=== PATIENT | female | born 1970 | race Caucasian/White ===

== ENCOUNTER 2017-11-21 12:27 | Day surgery (SDC) | payer OTHER, SELFPAY ==
[2017-11-21 13:17] VITALS: BP 101/73; BP 112/78; PULSE 73; PULSE 80; RESP 20; TEMP 36.4; O2SAT 93
--- NOTE | 2017-11-21 13:31 | HMH.PMPROC ---
- Procedure Date: 11/21/17 Time: 13:31 Anesthesiologist:: Abdoul Elise MD Complications:: None Pre-procedure Diagnosis:: Myofascial pain syndrome Post-procedure Diagnosis:: Same Indications for Procedure:: This is a pleasant 47-year-old white female who treating in pain clinic for chronic pain syndrome, myofascial pain syndrome, fibromyalgia, multiple joint pain. She has extreme point tenderness of bilateral trapezius. She has tried and failed multiple medications for chronic fibromyalgia symptoms. She has trigger points identified throughout bilateral upper trapezius muscles. We will do trigger point injections today. Procedure Details:: Trigger point injections x 8 to bilateral upper trapezius muscles Informed consent was obtained and the risk and benefits of the procedure was explained to the patient. Patient was taken to the procedure room. Neck and both shoulders were prepped using ChloraPrep. Triggerpoints were palpated. Each of these trigger points were injected with bupivacaine 0.25% 3 mL's and Depo-Medrol 10 mg. A total of 8 trigger points, 4 on each side were injected using a total of 80 mg Depo-Medrol. Patient tolerated the procedure well with no complications. Plan and Disposition:: We will follow-up with this patient in 2 weeks. We will reevaluate her symptoms at that time.
--- NOTE | 2017-11-21 13:35 | P.PCN_ITS ---
- Procedure Date: 11/21/17 Time: 13:31 Anesthesiologist:: bAdoul Elise MD Complications:: None Pre-procedure Diagnosis:: Myofascial pain syndrome Post-procedure Diagnosis:: Same Indications for Procedure:: This is a pleasant 47-year-old white female who treating in pain clinic for chronic pain syndrome, myofascial pain syndrome, fibromyalgia, multiple joint pain. She has extreme point tenderness of bilateral trapezius. She has tried and failed multiple medications for chronic fibromyalgia symptoms. She has trigger points identified throughout bilateral upper trapezius muscles. We will do trigger point injections today. Procedure Details:: Trigger point injections x 8 to bilateral upper trapezius muscles Informed consent was obtained and the risk and benefits of the procedure was explained to the patient. Patient was taken to the procedure room. Neck and both shoulders were prepped using ChloraPrep. Triggerpoints were palpated. Each of these trigger points were injected with bupivacaine 0.25% 3 mL's and Depo-Medrol 10 mg. A total of 8 trigger points, 4 on each side were injected using a total of 80 mg Depo-Medrol. Patient tolerated the procedure well with no complications. Plan and Disposition:: We will follow-up with this patient in 2 weeks. We will reevaluate her symptoms at that time.
[2017-11-21 13:37] VITALS: BP 107/69; PULSE 68; RESP 16; O2SAT 99
== END 2017-11-21 13:39 | disposition home or self-care (01) ==
LOC: SC.PAINP 12:30
PROVIDERS: Family Provider Family Medicine; PCP Family Medicine; Visit Provider Anesthesiology
DX: M79.1 Myalgia (principal)
CPT/HCPCS: 20552; J1030

== ENCOUNTER → 2017-12-03 14:25 | Outpatient (POV) | payer OTHER, SELFPAY ==
[2017-12-03 14:47] VITALS: BMI 23.2
--- NOTE | 2017-12-03 15:20 | HMH.PAINSOAP ---
[facility] Pain Management SOAP Note Subjective:: This patient is a pleasant 47-year-old white female who we are treating for fibromyalgia, neck pain with cervical radicular symptoms. She got bilateral upper trapezius trigger point injections at her last visit. She has some benefit from this. She still has some radicular symptoms down both arms especially from elbows to her hands. She does have some neck pain as well. Her MRI of C-spine does not show any disc herniation or neuroforaminal stenosis however this patient does note significant cervical radicular symptoms and neck pain I do believe she may benefit from cervical epidural steroid injection. Objective:: Alert and oriented ?3 no acute distress. Patient does have good range of motion of the cervical spine increased pain with extension. Motor strength of the upper knees is 5/5. There is no gross sensory deficit. Assessment:: Neck pain with cervical radiculopathy symptoms. Plan:: We will seek approval and plan on cervical epidural steroid injection. She is previously been on Lyrica and gabapentin and was unable to tolerate both these medications because of side effects.
== END ==
PROVIDERS: Family Provider Family Medicine; PCP Family Medicine; Visit Provider Anesthesiology
DX: M54.12 Radiculopathy, cervical region (principal)
CPT/HCPCS: 99212

== ENCOUNTER → 2017-12-19 09:03 | Day surgery (SDC) | payer OTHER, SELFPAY ==
[2017-12-19 09:12] VITALS: BP 152/83; PULSE 59; RESP 16; TEMP 36.4; O2SAT 97; BMI 22.8
[2017-12-19 09:39] VITALS: BP 154/97; PULSE 68; RESP 20; O2SAT 98
--- NOTE | 2017-12-19 09:39 | HMH.PMPROC ---
- Procedure Date: 12/19/17 Time: 09:39 Anesthesiologist:: Abdoul Elise MD Complications:: None Pre-procedure Diagnosis:: Neck pain with cervical radiculopathy symptoms Post-procedure Diagnosis:: Same Indications for Procedure:: This patient is a pleasant 47-year-old white female who we are treating for neck pain with cervical radiculopathy symptoms and fibromyalgia. She has some neck pain with radicular symptoms down both arms especially from her elbows to her hands. She did get some benefit from trigger point injections to her neck pain. However she still has significant radicular pain. We will do a cervical epidural steroid injection today to see if this helps with her radicular symptoms. Procedure Details:: Cervical epidural steroid injection under fluoroscopy Informed consent was obtained and the risks and benefits of the procedure was explained to the patient. The patient was taken to the procedure room placed prone on the procedure table. The neck was prepped using ChloraPrep. The skin and subcutaneous tissues were anesthetized using lidocaine. I placed a 18-gauge epidural needle into the C5-C6 interspace and advanced using [id number] to air and fluoroscopic guidance. After confirmation of needle placement in the epidural space with dye, I injected 3 mL's lidocaine 1.5% and Depo-Medrol 80 mg. The patient tolerated the procedure well with no complications. Plan and Disposition:: We will follow-up with her in 2 weeks. We will reevaluate her symptoms at that time.
[2017-12-19 09:41] VITALS: BP 136/75; PULSE 68; RESP 20; O2SAT 99
--- NOTE | 2017-12-19 09:47 | P.PCN_ITS ---
- Procedure Date: 12/19/17 Time: 09:39 Anesthesiologist:: Abdoul Elise MD Complications:: None Pre-procedure Diagnosis:: Neck pain with cervical radiculopathy symptoms Post-procedure Diagnosis:: Same Indications for Procedure:: This patient is a pleasant 47-year-old white female who we are treating for neck pain with cervical radiculopathy symptoms and fibromyalgia. She has some neck pain with radicular symptoms down both arms especially from her elbows to her hands. She did get some benefit from trigger point injections to her neck pain. However she still has significant radicular pain. We will do a cervical epidural steroid injection today to see if this helps with her radicular symptoms. Procedure Details:: Cervical epidural steroid injection under fluoroscopy Informed consent was obtained and the risks and benefits of the procedure was explained to the patient. The patient was taken to the procedure room placed prone on the procedure table. The neck was prepped using ChloraPrep. The skin and subcutaneous tissues were anesthetized using lidocaine. I placed a 18- gauge epidural needle into the C5-C6 interspace and advanced using loss-of- resistance to air and fluoroscopic guidance. After confirmation of needle placement in the epidural space with dye, I injected 3 mL's lidocaine 1.5% and Depo-Medrol 80 mg. The patient tolerated the procedure well with no complications. Plan and Disposition:: We will follow-up with her in 2 weeks. We will reevaluate her symptoms at that time.
[2017-12-19 09:53] VITALS: BP 156/86; PULSE 63; RESP 18; TEMP 36.4; O2SAT 100
== END ==
PROVIDERS: Family Provider Family Medicine; PCP Family Medicine; Visit Provider Anesthesiology
DX: M54.2 Cervicalgia (principal); M54.12 Radiculopathy, cervical region; M79.7 Fibromyalgia
CPT/HCPCS: 62321; J1040; Q9966

== ENCOUNTER → 2018-01-06 08:49 | Outpatient (POV) | payer OTHER, SELFPAY ==
--- NOTE | 2018-01-06 08:57 | HMH.PAINSOAP ---
[facility] Pain Management SOAP Note Subjective:: Is a pleasant 47-year-old white female who follows up today after cervical epidural steroid injection. Patient states she had 3 days of 100% pain relief after the injection. Patient has also has had trigger point injections in the past with some relief. Today patient would like to discuss another cervical epidural steroid injection. Patient rates her pain a 4 out of 10 today. Patient states that she is having extreme discomfort in both of her arms. She has radiating pain going from her shoulder all the way to all 5 fingertips on both arms. Patient states that this pain is shocking at times. Patient has difficulty with touching her arms. Patient's fingers have discoloration at times and also temperature changes as well. Patient denies any trauma to bilateral arms. Patient does ride her bike 40 miles a day. Due to this bilateral arm pain has worsened in the last 6 months. Has not had an MRI since 2016. Patient is a very active female. She does use Biofreeze that does help alleviate some of the pain however does not increase her ability to function. Patient also tried and failed physical therapy. ROS General: no recent weight change, no fever, no sleep disturbances Respiratory: no cough, no shortness of air, no recurring pulmonary infections Cardiovascular/Peripheral Vascular: No chest pain, No palpitations, no edema, no shortness of breath. Gastrointestinal: no incontinence, normal bowel movements reported Genitourinary: no incontinence Musculoskeletal: Neck pain, myofascial pain, bilateral arm pain Psychiatric: normal mood/ affect Neurological: Weakness in upper extremities at times, [denies balance issues] Objective:: Physical Exam General: Alert and oriented x3, no acute distress, pleasant and cooperative, [on room air] Lungs: Resps E/U, Symmetrical chest expansion, Musculoskeletal: Flexion and extension of cervical spine somewhat guarded secondary to pain, right patellar reflex greater than left, strength in upper and lower extremities [5/5], normal gait noted, trigger points palpated in the bilateral trapezius and cervical paraspinous. Tenderness noted over cervical spine. Neurological: speech clear, diving board assembler equal, no gross sensory deficits Assessment:: Cervical neck pain with cervical radiculopathy symptoms. Myofascial pain syndrome, rheumatoid arthritis Plan:: We will plan on another cervical epidural steroid injection at C5-C6. We will also ask for an MRI of her cervical spine. I believe that this would be advantageous due to the fact that she has had worsening of symptoms in the last 6 months and is some new radicular symptoms in her arms. I will also: Zanaflex 4 mg 1 p.o. 3 times daily for her to begin taking. I educated her on the risks of the medication and discussed her need to stop taking her Flexeril. She has also been on long-term anti-inflammatory therapy with little relief. This note was dictated using voice recognition software may contain errors or omissions
[2018-01-06 09:00] VITALS: BP 153/80; PULSE 62; RESP 18; O2SAT 100; BMI 23.0
--- NOTE | 2018-01-06 09:08 | P.CONS_ITS ---
[facility] Pain Management SOAP Note Subjective:: Is a pleasant 47-year-old white female who follows up today after cervical epidural steroid injection. Patient states she had 3 days of 100% pain relief after the injection. Patient has also has had trigger point injections in the past with some relief. Today patient would like to discuss another cervical epidural steroid injection. Patient rates her pain a 4 out of 10 today. Patient states that she is having extreme discomfort in both of her arms. She has radiating pain going from her shoulder all the way to all 5 fingertips on both arms. Patient states that this pain is shocking at times. Patient has difficulty with touching her arms. Patient's fingers have discoloration at times and also temperature changes as well. Patient denies any trauma to bilateral arms. Patient does ride her bike 40 miles a day. Due to this bilateral arm pain has worsened in the last 6 months. Has not had an MRI since 2016. Patient is a very active female. She does use Biofreeze that does help alleviate some of the pain however does not increase her ability to function. Patient also tried and failed physical therapy. ROS General: no recent weight change, no fever, no sleep disturbances Respiratory: no cough, no shortness of air, no recurring pulmonary infections Cardiovascular/Peripheral Vascular: No chest pain, No palpitations, no edema, no shortness of breath. Gastrointestinal: no incontinence, normal bowel movements reported Genitourinary: no incontinence Musculoskeletal: Neck pain, myofascial pain, bilateral arm pain Psychiatric: normal mood/ affect Neurological: Weakness in upper extremities at times, [denies balance issues] Objective:: Physical Exam General: Alert and oriented x3, no acute distress, pleasant and cooperative, [ on room air] Lungs: Resps E/U, Symmetrical chest expansion, Musculoskeletal: Flexion and extension of cervical spine somewhat guarded secondary to pain, right patellar reflex greater than left, strength in upper and lower extremities [5/5], normal gait noted, trigger points palpated in the bilateral trapezius and cervical paraspinous. Tenderness noted over cervical spine. Neurological: speech clear, manager etl equal, no gross sensory deficits Assessment:: Cervical neck pain with cervical radiculopathy symptoms. Myofascial pain syndrome, rheumatoid arthritis Plan:: We will plan on another cervical epidural steroid injection at C5-C6. We will also ask for an MRI of her cervical spine. I believe that this would be advantageous due to the fact that she has had worsening of symptoms in the last 6 months and is some new radicular symptoms in her arms. I will also: Zanaflex 4 mg 1 p.o. 3 times daily for her to begin taking. I educated her on the risks of the medication and discussed her need to stop taking her Flexeril. She has also been on long-term anti-inflammatory therapy with little relief. This note was dictated using voice recognition software may contain errors or omissions
--- NOTE | 2018-01-07 09:30 | PC.PHONENOTE ---
01/06/18-called in Rx for Zanaflex 4mg TID with two refills to pt's pharmacy per provider order
== END ==
PROVIDERS: Family Provider Family Medicine; PCP Family Medicine; Visit Provider Clinical Nurse Specialist Family Health
DX: M54.12 Radiculopathy, cervical region (principal)
CPT/HCPCS: 99212

== ENCOUNTER → 2018-01-08 07:53 | Outpatient (CLI) | payer OTHER, SELFPAY ==
--- NOTE | 2018-01-08 07:56 | MR_ITS ---
MR cervical spine wo con, MR 3-d myelogram/MRCP HISTORY: Worsening back pain with bilateral arm pain and numbness and tingling ORDERING PHYSICIAN: Abdoul Elise MD PATIENT AGE: 47 years COMPARISON: MRI of 07/18/2016 TECHNIQUE: Standard multiplanar multiecho sequences are performed without contrast. 3-D MIP and myelographic images are also rendered and reviewed FINDINGS: There is normal alignment. Unremarkable craniocervical junction. There is straightening of the cervical vessels. This may be the patient positioning or muscle spasm. There is normal alignment. No disc herniation, significant bulge, fracture, or dislocation is evident. There is minimal right paracentral disc protrusion at C6-C7.. No significant foraminal narrowing or impingement is evident. IMPRESSION: 1. Straightening of cervical lordosis which could be due to patient positioning or muscle. 2. Minimal right paracentral and foraminal disc protrusion at C6-C7 without obvious impingement. 3. Otherwise negative MRI of the cervical spine
== END ==
PROVIDERS: Family Provider Family Medicine; PCP Family Medicine; Visit Provider Anesthesiology
DX: M54.2 Cervicalgia (principal)
CPT/HCPCS: 72141; 76376

== ENCOUNTER → 2018-01-09 14:31 | Day surgery (SDC) | payer OTHER, SELFPAY ==
[2018-01-09 14:45] VITALS: BP 112/69; PULSE 60; RESP 15; TEMP 36.5; O2SAT 97; BMI 23.0
[2018-01-09 15:13] VITALS: BP 103/64; PULSE 61; RESP 18; O2SAT 98
[2018-01-09 15:15] VITALS: BP 105/65; PULSE 59; RESP 18
--- NOTE | 2018-01-09 15:17 | HMH.PMPROC ---
- Procedure Date: 01/09/18 Time: 15:17 Anesthesiologist:: Abdoul Elise MD Complications:: None Pre-procedure Diagnosis:: Neck pain with cervical radiculopathy symptoms. Myofascial pain syndrome, rheumatoid arthritis Post-procedure Diagnosis:: Same Indications for Procedure:: This patient is a pleasant 47-year-old white female who we are treating for neck pain with cervical radiculopathy symptoms. She had good relief of her pain symptoms for 3-4 days after her last cervical epidural steroid injection. Her pain is starting to come back. We will do a repeat cervical epidural steroid injection today. Procedure Details:: Cervical epidural steroid injection under fluoroscopy Informed consent was obtained and the risks and benefits of the procedure was explained to the patient. The patient was taken to the procedure room placed prone on the procedure table. The neck was prepped using ChloraPrep. The skin and subcutaneous tissues were anesthetized using lidocaine. I placed a 18-gauge epidural needle into the C5-C6 interspace and advanced using [id number] to air and fluoroscopic guidance. After confirmation of needle placement in the epidural space with dye, I injected 3 mL's lidocaine 1.5% and Depo-Medrol 80 mg. The patient tolerated the procedure well with no complications. Plan and Disposition:: We will follow-up with her in 2 weeks. We will reevaluate her symptoms at that time. We will follow-up on her MRI.
--- NOTE | 2018-01-09 15:20 | P.PCN_ITS ---
- Procedure Date: 01/09/18 Time: 15:17 Anesthesiologist:: Abdoul Elise MD Complications:: None Pre-procedure Diagnosis:: Neck pain with cervical radiculopathy symptoms. Myofascial pain syndrome, rheumatoid arthritis Post-procedure Diagnosis:: Same Indications for Procedure:: This patient is a pleasant 47-year-old white female who we are treating for neck pain with cervical radiculopathy symptoms. She had good relief of her pain symptoms for 3-4 days after her last cervical epidural steroid injection. Her pain is starting to come back. We will do a repeat cervical epidural steroid injection today. Procedure Details:: Cervical epidural steroid injection under fluoroscopy Informed consent was obtained and the risks and benefits of the procedure was explained to the patient. The patient was taken to the procedure room placed prone on the procedure table. The neck was prepped using ChloraPrep. The skin and subcutaneous tissues were anesthetized using lidocaine. I placed a 18- gauge epidural needle into the C5-C6 interspace and advanced using loss-of- resistance to air and fluoroscopic guidance. After confirmation of needle placement in the epidural space with dye, I injected 3 mL's lidocaine 1.5% and Depo-Medrol 80 mg. The patient tolerated the procedure well with no complications. Plan and Disposition:: We will follow-up with her in 2 weeks. We will reevaluate her symptoms at that time. We will follow-up on her MRI.
[2018-01-09 15:22] VITALS: BP 94/61; PULSE 60; RESP 14; TEMP 36.4; O2SAT 98
== END ==
PROVIDERS: Family Provider Family Medicine; PCP Family Medicine; Visit Provider Anesthesiology
DX: M54.2 Cervicalgia (principal); M54.12 Radiculopathy, cervical region
CPT/HCPCS: 62321; J1040; Q9966

== ENCOUNTER → 2018-01-27 08:51 | Outpatient (POV) | payer OTHER, SELFPAY ==
[2018-01-27 08:57] VITALS: BP 116/81; PULSE 61; RESP 16; O2SAT 100; BMI 23.0
--- NOTE | 2018-01-27 09:03 | HMH.PAINSOAP ---
[facility] Pain Management SOAP Note Subjective:: Patient is a pleasant 47-year-old white female who presents today following up after cervical epidural steroid injection. Patient received no relief or benefit from this injection. Patient has tried physical therapy and anti-inflammatory medications with no great relief. Patient still has muscle spasms and tightening of her trapezius. Patient rates her pain a 6 out of 10 today. Patient is able to take Zanaflex throughout the day without as much sedation as her Flexeril. I told her to continue this. Patient has not tried chiropractic therapy I believe that this may be beneficial for her. Patient did have a new MRI. Patient still riding her bike 50 miles a day. ROS General: no recent weight change, no fever, no sleep disturbances Respiratory: no cough, no shortness of air, no recurring pulmonary infections Cardiovascular/Peripheral Vascular: No chest pain, No palpitations, no edema, no shortness of breath. Gastrointestinal: no incontinence, normal bowel movements reported Genitourinary: no incontinence Musculoskeletal: Back pain, myofascial pain Psychiatric: normal mood/ affect Neurological: [denies balance issues] Objective:: Physical Exam General: Alert and oriented x3, no acute distress, pleasant and cooperative, [on room air] Lungs: Resps E/U, Symmetrical chest expansion, Eyes: PERRL Musculoskeletal: Flexion and extension of cervical spine somewhat guarded secondary to pain, deep tendon reflexes normal, strength in upper and lower extremities [5/5], normal gait noted Neurological: speech clear, circuit walker equal, no gross sensory deficits Ordering Physician: Abdoul Elise MD Date of Service: 01/08/18 Procedure(s): MR cervical spine wo con Accession Number(s): [id number] cc: Jacob Jo MD; Amador Townsend MD~ MR cervical spine wo con, MR 3-d myelogram/MRCP HISTORY: Worsening back pain with bilateral arm pain and numbness and tingling ORDERING PHYSICIAN: Abdoul Elise MD PATIENT AGE: 47 years COMPARISON: MRI of 07/18/2016 TECHNIQUE: Standard multiplanar multiecho sequences are performed without contrast. 3-D MIP and myelographic images are also rendered and reviewed FINDINGS: There is normal alignment. Unremarkable craniocervical junction. There is straightening of the cervical vessels. This may be the patient positioning or muscle spasm. There is normal alignment. No disc herniation, significant bulge, fracture, or dislocation is evident. There is minimal right paracentral disc protrusion at C6-C7.. No significant foraminal narrowing or impingement is evident. IMPRESSION: 1. Straightening of cervical lordosis which could be due to patient positioning or muscle. 2. Minimal right paracentral and foraminal disc protrusion at C6-C7 without obvious impingement. 3. Otherwise negative MRI of the cervical spine Dictated By: Jacob Jo MD Signed By: <Electronically signed by Jacob Jo MD in [place]> Assessment:: Myofascial pain syndrome, disc protrusion at C6-C7, degenerative disc disease of the cervical spine Plan:: The patient and I discussed continuing the Zanaflex. I also discussed with the patient getting a chiropractic consultation. I believe that at this point more injections will not be beneficial long-term. Patient does have some new pathology on her MRI. I will follow-up with this patient in 1 month This note was dictated using voice recognition software and may contain errors or omissions
--- NOTE | 2018-01-27 09:06 | P.CONS_ITS ---
[facility] Pain Management SOAP Note Subjective:: Patient is a pleasant 47-year-old white female who presents today following up after cervical epidural steroid injection. Patient received no relief or benefit from this injection. Patient has tried physical therapy and anti- inflammatory medications with no great relief. Patient still has muscle spasms and tightening of her trapezius. Patient rates her pain a 6 out of 10 today. Patient is able to take Zanaflex throughout the day without as much sedation as her Flexeril. I told her to continue this. Patient has not tried chiropractic therapy I believe that this may be beneficial for her. Patient did have a new MRI. Patient still riding her bike 50 miles a day. ROS General: no recent weight change, no fever, no sleep disturbances Respiratory: no cough, no shortness of air, no recurring pulmonary infections Cardiovascular/Peripheral Vascular: No chest pain, No palpitations, no edema, no shortness of breath. Gastrointestinal: no incontinence, normal bowel movements reported Genitourinary: no incontinence Musculoskeletal: Back pain, myofascial pain Psychiatric: normal mood/ affect Neurological: [denies balance issues] Objective:: Physical Exam General: Alert and oriented x3, no acute distress, pleasant and cooperative, [ on room air] Lungs: Resps E/U, Symmetrical chest expansion, Eyes: PERRL Musculoskeletal: Flexion and extension of cervical spine somewhat guarded secondary to pain, deep tendon reflexes normal, strength in upper and lower extremities [5/5], normal gait noted Neurological: speech clear, 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 3-D MIP and myelographic images are also rendered and reviewed FINDINGS: There is normal alignment. Unremarkable craniocervical junction. There is straightening of the cervical vessels. This may be the patient positioning or muscle spasm. There is normal alignment. No disc herniation, significant bulge, fracture, or dislocation is evident. There is minimal right paracentral disc protrusion at C6-C7.. No significant foraminal narrowing or impingement is evident. IMPRESSION: 1. Straightening of cervical lordosis which could be due to patient positioning or muscle. 2. Minimal right paracentral and foraminal disc protrusion at C6-C7 without obvious impingement. 3. Otherwise negative MRI of the cervical spine Dictated By: Jacob Jo MD Signed By: <Electronically signed by Jacob Jo MD in [place]> Assessment:: Myofascial pain syndrome, disc protrusion at C6-C7, degenerative disc disease of the cervical spine Plan:: The patient and I discussed continuing the Zanaflex. I also discussed with the patient getting a chiropractic consultation. I believe that at this point more injections will not be beneficial long-term. Patient does have some new pathology on her MRI. I will follow-up with this patient in 1 month This note was dictated using voice recognition software and may contain errors or omissions
== END ==
PROVIDERS: Family Provider Family Medicine; PCP Family Medicine; Visit Provider Clinical Nurse Specialist Family Health
DX: M50.30 Other cervical disc degeneration, unspecified cervical region (principal); M79.1 Myalgia
CPT/HCPCS: 99212

== ENCOUNTER → 2018-02-13 12:41 | Outpatient (CLI) | payer OTHER, SELFPAY | PROVIDERS: Visit Provider Family Medicine | DX: S81.801A Unspecified open wound, right lower leg, initial encounter (principal) | CPT/HCPCS: 87070; 87205 ==

== ENCOUNTER → 2018-02-24 09:44 | Outpatient (POV) | payer OTHER, SELFPAY ==
[2018-02-24 10:02] VITALS: BP 139/84; PULSE 78; RESP 18; TEMP 36.6; O2SAT 100; BMI 22.8
--- NOTE | 2018-02-24 10:38 | HMH.PAINSOAP ---
[facility] Pain Management SOAP Note Subjective:: She is a pleasant 47-year-old white female who presents to the following up after her prior to therapy for her cervical neck pain. Patient has received no relief or from this. Patient has not had any benefit from her injections. Patient's tried and failed physical therapy and anti-inflammatory medications. Patient is having muscle spasms throughout her bilateral trapezius. Patient is having numbness and tingling all the way to her fingers of both hands. Patient stated it is hard for her to get up and go to work in the morning. Patient is writing her 50 miles a day. Patient does have an MRI with some pathology on it. Patient rates her pain an 8 out of 10 today. She is also having numbness and tingling in her bilateral legs from her knees to her toes. ROS General: no recent weight change, no fever, no sleep disturbances Respiratory: no cough, no shortness of air, no recurring pulmonary infections Cardiovascular/Peripheral Vascular: No chest pain, No palpitations, no edema, no shortness of breath. Gastrointestinal: no incontinence, normal bowel movements reported Genitourinary: no incontinence Musculoskeletal: Neck pain, but hand pain, bilateral leg pain Psychiatric: normal mood/ affect Neurological: [denies weakness in extremities], [denies balance issues] Objective:: Physical Exam General: Alert and oriented x3, no acute distress, pleasant and cooperative, [on room air] Lungs: Resps E/U, Symmetrical chest expansion, Eyes: PERRL Musculoskeletal: Flexion and extension of cervical spine somewhat guarded secondary to pain, deep tendon reflexes normal, strength in upper and lower extremities [5/5], slightly antalgic gait noted Neurological: speech clear, 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 Patient is interested in moving forward with this. I believe that this may be beneficial for her. Patient has tried and failed anti-inflammatories, medications, exercises, stretching, physical therapy and chiropractic therapy. We will schedule a trial for her. We will use the nuVectra system and try to gain relief of both cervical radiculopathy and bilateral leg pain. This note was dictated using voice recognition software and may contain errors or omissions
--- NOTE | 2018-02-24 10:41 | P.CONS_ITS ---
[facility] Pain Management SOAP Note Subjective:: She is a pleasant 47-year-old white female who presents to the following up after her prior to therapy for her cervical neck pain. Patient has received no relief or from this. Patient has not had any benefit from her injections. Patient's tried and failed physical therapy and anti-inflammatory medications. Patient is having muscle spasms throughout her bilateral trapezius. Patient is having numbness and tingling all the way to her fingers of both hands. Patient stated it is hard for her to get up and go to work in the morning. Patient is writing her 50 miles a day. Patient does have an MRI with some pathology on it. Patient rates her pain an 8 out of 10 today. She is also having numbness and tingling in her bilateral legs from her knees to her toes. ROS General: no recent weight change, no fever, no sleep disturbances Respiratory: no cough, no shortness of air, no recurring pulmonary infections Cardiovascular/Peripheral Vascular: No chest pain, No palpitations, no edema, no shortness of breath. Gastrointestinal: no incontinence, normal bowel movements reported Genitourinary: no incontinence Musculoskeletal: Neck pain, but hand pain, bilateral leg pain Psychiatric: normal mood/ affect Neurological: [denies weakness in extremities], [denies balance issues] Objective:: Physical Exam General: Alert and oriented x3, no acute distress, pleasant and cooperative, [ on room air] Lungs: Resps E/U, Symmetrical chest expansion, Eyes: PERRL Musculoskeletal: Flexion and extension of cervical spine somewhat guarded secondary to pain, deep tendon reflexes normal, strength in upper and lower extremities [5/5], slightly antalgic gait noted Neurological: speech clear, observer helper equal, no gross sensory deficits Assessment:: Myofascial pain syndrome, degenerative disc disease of the cervical spine, cervical radiculopathy, bilateral leg pain Plan:: Patient and I have discussed and neurostimulator trial. Patient is interested in moving forward with this. I believe that this may be beneficial for her. Patient has tried and failed anti-inflammatories, medications, exercises, stretching, physical therapy and chiropractic therapy. We will schedule a trial for her. We will use the nuVectra system and try to gain relief of both cervical radiculopathy and bilateral leg pain. This note was dictated using voice recognition software and may contain errors or omissions
== END ==
PROVIDERS: Family Provider Family Medicine; PCP Family Medicine; Visit Provider Clinical Nurse Specialist Family Health
DX: M54.12 Radiculopathy, cervical region (principal); M79.1 Myalgia
CPT/HCPCS: 99212

== ENCOUNTER → 2018-03-10 13:40 | Outpatient (CLI) | payer OTHER, SELFPAY ==
[2018-03-10 14:30] LABS: Basophils % 0.7 % (0.1-2.0); Eosinophils # 0.1 K/mm3 (0.0-0.4); Eosinophils % 3.3 % (0.1-12.0); Hematocrit 34.7 % (37.0-47.0); Lymphocytes # 1.5 K/mm3 (0.7-4.5); Lymphocytes % 35.2 K/mm3 (10-50); Mean Corpuscular HGB Conc 31.5 g/dL (31.8-35.4); Mean Corpuscular Hemoglobin 30.8 pg (27.0-31.2); Mean Corpuscular Volume 97.7 fl (81-99); Monocytes # 0.3 K/mm3 (0.1-1.0); Monocytes % 6.5 % (1.7-9.3); Neutrophils # 2.3 K/mm3 (1.8-7.8); Neutrophils % 54.3 % (37.0-80.0); Platelet Count 286 K/mm3 (142-424); Red Blood Count 3.56 M/mm3 (4.20-5.40); Red Cell Distribution Width 13.2 % (11.5-17.5); White Blood Count 4.2 K/mm3 (4.8-10.8)
[2018-03-10 14:59] LABS: Anion Gap 14.4 mEq/L (5-15); Blood Urea Nitrogen 13 mg/dL (7-18); Carbon Dioxide 28 mmol/L (21.0-32.0); Chloride 102 mmol/L (98-107); Creatinine,Serum 0.83 mg/dL (0.55-1.02); Estimated Glomerular Filt Rate 73 ml/min (>60); GFR (African American) 89 ML/MIN (>60); Glucose 79 mg/dL (74-106); Potassium 4.4 mmoL/L (3.5-5.1); Sodium 140 mmol/L (136-145)
== END ==
PROVIDERS: Visit Provider Anesthesiology
DX: Z01.818 Encounter for other preprocedural examination (principal); M50.10 Cervical disc disorder with radiculopathy, unspecified cervical region
CPT/HCPCS: 36415; 80048; 85025

== ENCOUNTER → 2018-03-16 13:37 | Outpatient (POV) | payer OTHER, SELFPAY ==
--- NOTE | 2018-03-16 13:53 | HMH.PAINSOAP ---
[facility] Pain Management SOAP Note Subjective:: This patient is a pleasant 47-year-old white female who underwent spinal cord stimulator trial with a cervical lead and lumbar lead for degenerative disease of cervical spine with cervical radiculopathy symptoms and degenerative disease of lumbar spine with lumbar radiculopathy symptoms. She had 80-90% relief in pain symptoms. She did have some nerve irritation which resolved after a few days. Overall she was doing much better with a pain score down to a 1 out of 10. Patient wants to proceed with permanent placement. Since there was difficulty in placing her cervical lead I have recommended surgical paddle lead placement. Objective:: Alert and oriented ?3 in no acute distress. Patient has a normal gait. Leads were removed intact. No signs of infection. There is no redness no skin irritation. Motor strength of the upper and lower extremity is 5 out of 5. There is no gross sensory deficit. Assessment:: Degenerative disc disease of the cervical spine and lumbar spine with radiculopathy symptoms Plan:: Stimulating leads were pulled today. I have talked to the patient about referring to Dr. Cary for surgical paddle lead placement. We will have her see Dr. Cary and be evaluated for surgical paddle lead placement one in the cervical region and one in the lumbar region. Leads were at the C5-C6 C7-T1 vertebral bodies and M7-P7-J2-T10 we will have her implanted with a NuExactTargettra system.
--- NOTE | 2018-03-16 13:56 | P.CONS_ITS ---
[facility] Pain Management SOAP Note Subjective:: This patient is a pleasant 47-year-old white female who underwent spinal cord stimulator trial with a cervical lead and lumbar lead for degenerative disease of cervical spine with cervical radiculopathy symptoms and degenerative disease of lumbar spine with lumbar radiculopathy symptoms. She had 80-90% relief in pain symptoms. She did have some nerve irritation which resolved after a few days. Overall she was doing much better with a pain score down to a 1 out of 10. Patient wants to proceed with permanent placement. Since there was difficulty in placing her cervical lead I have recommended surgical paddle lead placement. Objective:: Alert and oriented ?3 in no acute distress. Patient has a normal gait. Leads were removed intact. No signs of infection. There is no redness no skin irritation. Motor strength of the upper and lower extremity is 5 out of 5. There is no gross sensory deficit. Assessment:: Degenerative disc disease of the cervical spine and lumbar spine with radiculopathy symptoms Plan:: Stimulating leads were pulled today. I have talked to the patient about referring to Dr. Cary for surgical paddle lead placement. We will have her see Dr. Cary and be evaluated for surgical paddle lead placement one in the cervical region and one in the lumbar region. Leads were at the C5-C6 C7-T1 vertebral bodies and C2-S4-R1-T10 we will have her implanted with a NuMoogsofttra system.
== END ==
PROVIDERS: Family Provider Family Medicine; PCP Family Medicine; Visit Provider Anesthesiology
DX: M54.16 Radiculopathy, lumbar region (principal); M54.12 Radiculopathy, cervical region
CPT/HCPCS: 99212

== ENCOUNTER → 2018-07-02 09:16 | Outpatient (CLI) | payer OTHER, SELFPAY ==
[2018-07-02 10:12] LABS: Basophils % 0.6 % (0.1-2.0); Eosinophils # 0.1 K/mm3 (0.0-0.4); Eosinophils % 1.8 % (0.1-12.0); Hematocrit 37.1 % (37.0-47.0); Hemoglobin 11.7 g/dL (12.2-16.2); Lymphocytes % 17.6 K/mm3 (10-50); Mean Corpuscular HGB Conc 31.6 g/dL (31.8-35.4); Mean Corpuscular Hemoglobin 30.7 pg (27.0-31.2); Mean Corpuscular Volume 96.9 fl (81-99); Mean Platelet Volume 7.3 fl (7.4-10.4); Monocytes # 0.3 K/mm3 (0.1-1.0); Monocytes % 5.2 % (1.7-9.3); Neutrophils # 4.2 K/mm3 (1.8-7.8); Neutrophils % 74.8 % (37.0-80.0); Platelet Count 375 K/mm3 (142-424); Red Blood Count 3.83 M/mm3 (4.20-5.40); Red Cell Distribution Width 13.2 % (11.5-17.5); White Blood Count 5.6 K/mm3 (4.8-10.8)
[2018-07-02 10:40] LABS: Alanine Aminotransferase 33 U/L (12-78); Albumin Level 3.5 gm/dL (3.4-5.0); Alkaline Phosphatase 88 U/L (46-116); Aspartate Amino Transferase 25 U/L (15-37); Bilirubin,Total 0.3 mg/dL (0.2-1.0); Blood Urea Nitrogen 17 mg/dL (7-18); Calcium 9.5 mg/dL (8.5-10.1); Carbon Dioxide 32 mmol/L (21.0-32.0); Chloride 100 mmol/L (98-107); Creatinine,Serum 0.87 mg/dL (0.55-1.02); Estimated Glomerular Filt Rate 69 ml/min (>60); GFR (African American) 84 ML/MIN (>60); Globulin 3.4 gm/dl (1.3-3.2); Glucose 87 mg/dL (74-106); Sodium 138 mmol/L (136-145); Total Protein,Serum 6.9 gm/dL (6.4-8.2)
[2018-07-02 10:45] LABS: C-Reactive Protein < 0.2 mg/L (0.0-0.9)
[2018-07-02 11:14] LABS: Erythrocyte Sedimentation Rate 9 mm/hr (0-20)
[2018-07-03 09:12] LABS: RA Latex Turbid. <10.0 IU/mL (0.0-13.9)
[2018-07-03 18:09] LABS: Antinuclear Antibodies, IFA Negative (.)
[2018-07-07 08:28] LABS: Anti-Cyclic Citrullinated Pept 3 units (0-19)
== END ==
PROVIDERS: Visit Provider Internal Medicine
DX: M79.7 Fibromyalgia (principal); R76.8 Other specified abnormal immunological findings in serum; Z68.22 Body mass index [BMI] 22.0-22.9, adult
CPT/HCPCS: 36415; 80053; 85025; 85651; 86038; 86140; 86200; 86431

== ENCOUNTER → 2018-08-20 08:37 | Outpatient (CLI) | payer OTHER, SELFPAY ==
--- NOTE | 2018-08-20 08:38 | MM_ITS ---
MM Dig screening mamm BI w/CAD CAD Screening COMPARISON: Digital mammograms with CAD 06/21/2016 and 06/19/2015 INDICATION: There is no personal or family history of breast cancer TECHNIQUE: Standard CC and MLO images were obtained. R2 CAD reviewed. FINDINGS: Moderate scattered fiber glandular densities are seen throughout both breasts. There is a stable asymmetric density right breast only definitely seen on the MLO view. There is no suspicious lesion and there are no suspicious microcalcifications. IMPRESSION: Stable exam no suspicious lesion seen BI-RADS Category: 2 Benign Finding(s) RECOMMENDED FOLLOW-UP: 1YR - 1 YEAR FOLLOW-UP (A letter has been sent to the patient regarding results of the study.)
== END ==
PROVIDERS: Family Provider Family Medicine; PCP Family Medicine; Visit Provider Obstetrics & Gynecology
DX: Z12.31 Encounter for screening mammogram for malignant neoplasm of breast (principal)
CPT/HCPCS: 77067

== ENCOUNTER → 2018-09-01 09:09 | Outpatient (POV) | payer OTHER, SELFPAY | PROVIDERS: Family Provider Family Medicine; PCP Family Medicine; Visit Provider Dermatology | DX: Z00.00 Encounter for general adult medical examination without abnormal findings (principal) ==

== ENCOUNTER → 2018-10-23 12:24 | Outpatient (CLI) | payer OTHER, SELFPAY ==
[2018-10-23 13:54] LABS: Basophils % 0.4 % (0.1-2.0); Eosinophils # 0.1 K/mm3 (0.0-0.4); Eosinophils % 3.8 % (0.1-12.0); Hematocrit 37.1 % (37.0-47.0); Hemoglobin 11.4 g/dL (12.2-16.2); Lymphocytes # 1.2 K/mm3 (0.7-4.5); Lymphocytes % 33.6 % (10-50); Mean Corpuscular HGB Conc 30.8 g/dL (31.8-35.4); Mean Corpuscular Hemoglobin 30.9 pg (27.0-31.2); Mean Corpuscular Volume 100.4 fl (81-99); Mean Platelet Volume 7.3 fl (7.4-10.4); Monocytes # 0.3 K/mm3 (0.1-1.0); Monocytes % 7.6 % (1.7-9.3); Neutrophils % 54.7 % (37.0-80.0); Platelet Count 287 K/mm3 (142-424); Red Cell Distribution Width 13.1 % (11.5-17.5); Reticulocyte % (Auto) 1.1 % (0.9-3.2); White Blood Count 3.7 K/mm3 (4.8-10.8)
[2018-10-23 14:33] LABS: Alanine Aminotransferase 29 U/L (12-78); Albumin Level 3.1 gm/dL (3.4-5.0); Alkaline Phosphatase 83 U/L (46-116); Aspartate Amino Transferase 20 U/L (15-37); Bilirubin,Total 0.2 mg/dL (0.2-1.0); Blood Urea Nitrogen 17 mg/dL (7-18); Calcium 8.8 mg/dL (8.5-10.1); Carbon Dioxide 30 mmol/L (21.0-32.0); Chloride 105 mmol/L (98-107); Creatinine,Serum 0.74 mg/dL (0.55-1.02); Estimated Glomerular Filt Rate 84 ml/min (>60); Ferritin 34 ng/mL (8-388); GFR (African American) 101 ML/MIN (>60); Globulin 3.1 gm/dl (1.3-3.2); Glucose 82 mg/dL (74-106); Iron 78 ug/dl (28-170); Sodium 140 mmol/L (136-145); Thyroid Stimulating Hormone 1.62 uIU/ml (0.358-3.740); Total Protein,Serum 6.2 gm/dL (6.4-8.2)
[2018-10-24 09:14] LABS: Iron 79 ug/dL (27-159); UIBC 343 ug/dL (131-425)
[2018-10-25 05:34] LABS: Iron Saturation 19 % (15-55)
[2018-10-25 05:36] LABS: Vitamin B12 545 pg/mL (232-1245)
== END ==
PROVIDERS: Visit Provider Physician Assistant
DX: D50.9 Iron deficiency anemia, unspecified (principal); R53.83 Other fatigue
CPT/HCPCS: 36415; 80053; 82607; 82728; 83540; 83550; 84443; 85025; 85044

== ENCOUNTER → 2018-11-16 11:40 | Outpatient (CLI) | payer OTHER, SELFPAY ==
[2018-11-16 13:22] LABS: Basophils % 0.7 % (0.1-2.0); Eosinophils # 0.1 K/mm3 (0.0-0.4); Eosinophils % 2.9 % (0.1-12.0); Hematocrit 35.6 % (37.0-47.0); Hemoglobin 11.3 g/dL (12.2-16.2); Lymphocytes # 1.1 K/mm3 (0.7-4.5); Lymphocytes % 29.3 % (10-50); Mean Corpuscular HGB Conc 31.8 g/dL (31.8-35.4); Mean Corpuscular Hemoglobin 30.9 pg (27.0-31.2); Mean Corpuscular Volume 97.1 fl (81-99); Mean Platelet Volume 7.8 fl (7.4-10.4); Monocytes # 0.2 K/mm3 (0.1-1.0); Monocytes % 5.4 % (1.7-9.3); Neutrophils # 2.4 K/mm3 (1.8-7.8); Neutrophils % 61.7 % (37.0-80.0); Platelet Count 286 K/mm3 (142-424); Red Blood Count 3.67 M/mm3 (4.20-5.40); Red Cell Distribution Width 12.6 % (11.5-17.5); White Blood Count 3.8 K/mm3 (4.8-10.8)
== END ==
PROVIDERS: PCP Family Medicine; Visit Provider Internal Medicine
DX: D72.819 Decreased white blood cell count, unspecified (principal)
CPT/HCPCS: 36415; 85025

== ENCOUNTER → 2018-12-16 07:33 | Outpatient (CLI) | payer OTHER, SELFPAY ==
[2018-12-16 14:49] LABS: Basophils % 0.7 % (0.1-2.0); Eosinophils # 0.1 K/mm3 (0.0-0.4); Eosinophils % 5.5 % (0.1-12.0); Hematocrit 35.9 % (37.0-47.0); Hemoglobin 11.4 g/dL (12.2-16.2); Lymphocytes # 1.1 K/mm3 (0.7-4.5); Lymphocytes % 42.2 % (10-50); Mean Corpuscular HGB Conc 31.8 g/dL (31.8-35.4); Mean Corpuscular Hemoglobin 30.9 pg (27.0-31.2); Mean Corpuscular Volume 97.3 fl (81-99); Mean Platelet Volume 7.7 fl (7.4-10.4); Monocytes # 0.3 K/mm3 (0.1-1.0); Monocytes % 11.3 % (1.7-9.3); Neutrophils % 40.2 % (37.0-80.0); Platelet Count 340 K/mm3 (142-424); Red Blood Count 3.69 M/mm3 (4.20-5.40); Red Cell Distribution Width 12.8 % (11.5-17.5); White Blood Count 2.6 K/mm3 (4.8-10.8)
== END ==
PROVIDERS: PCP Family Medicine; Visit Provider Internal Medicine
DX: D72.819 Decreased white blood cell count, unspecified (principal); M79.7 Fibromyalgia; Z79.1 Long term (current) use of non-steroidal anti-inflammatories (NSAID)
CPT/HCPCS: 36415; 85025

== ENCOUNTER → 2019-02-04 10:00 | Outpatient (CLI) | payer OTHER, SELFPAY ==
--- NOTE | 2019-02-04 10:02 | NM_ITS ---
NM liver and spleen static CLINICAL INDICATION: Low white blood cell count ITS.REASON: ANEMIA ORDERING PHYSICIAN: Kristal Brenner MD PATIENT AGE: 48 years Comparison: None DOSE: 5.04 mCi technetium sulfur colloid FINDINGS: With mild hepatic megaly. The spleen does not appear enlarged. There is a mild degree of bone marrow activity indicating mild hepatocellular dysfunction. There is decrease activity within the central aspect of the hepatic dome on the frontal view which may be due to attenuation from patient's overlying epidural stimulator device. Is not demonstrated on the oblique images. IMPRESSION: Moderate hepatomegaly with mild hepatocellular dysfunction
== END ==
PROVIDERS: PCP Family Medicine; Visit Provider Internal Medicine Medical Oncology
DX: D64.9 Anemia, unspecified (principal)
CPT/HCPCS: 78215; A9541

== ENCOUNTER → 2019-03-03 07:09 | Outpatient (CLI) | payer OTHER, SELFPAY ==
[2019-03-03 07:35] LABS: Microscopic, Urine URINE MICROSCOPIC (MICROSCOPIC)
[2019-03-03 15:04] LABS: Appearance,Urine CLEAR (Clear); Bilirubin,Urine Negative (Negative); Blood, Urine Negative (Negative); Color,Urine YELLOW (Yellow); Glucose,Urine (UA) Negative (Negative); Ketones,Urine TRACE (Negative); Leukocyte Esterase,Urine Negative (Negative); Nitrate,Urine Negative (Negative); Protein,Urine Negative (Negative); Specific Gravity, Urine 1.025 (1.005-1.030); Urobilinogen,Urine 0.2 EU/dl (0.2)
[2019-03-03 15:11] LABS: Basophils % 0.7 % (0.1-2.0); Eosinophils # 0.1 K/mm3 (0.0-0.4); Eosinophils % 4.4 % (0.1-12.0); Hematocrit 34.4 % (37.0-47.0); Lymphocytes # 1.3 K/mm3 (0.7-4.5); Lymphocytes % 45.3 % (10-50); Mean Corpuscular HGB Conc 31.8 g/dL (31.8-35.4); Mean Corpuscular Hemoglobin 31.1 pg (27.0-31.2); Mean Corpuscular Volume 97.6 fl (81-99); Mean Platelet Volume 8.1 fl (7.4-10.4); Monocytes # 0.2 K/mm3 (0.1-1.0); Monocytes % 6.9 % (1.7-9.3); Neutrophils # 1.2 K/mm3 (1.8-7.8); Neutrophils % 42.7 % (37.0-80.0); Platelet Count 331 K/mm3 (142-424); Red Blood Count 3.53 M/mm3 (4.20-5.40); Red Cell Distribution Width 12.8 % (11.5-17.5); White Blood Count 2.9 K/mm3 (4.8-10.8)
[2019-03-03 15:32] LABS: Alanine Aminotransferase 38 U/L (12-78); Albumin Level 3.4 gm/dL (3.4-5.0); Alkaline Phosphatase 91 U/L (46-116); Anion Gap 11.5 mEq/L (5-15); Aspartate Amino Transferase 20 U/L (15-37); Bilirubin,Total 0.3 mg/dL (0.2-1.0); Blood Urea Nitrogen 14 mg/dL (7-18); C-Reactive Protein 1.2 mg/L (0.0-0.9); Calcium 9.1 mg/dL (8.5-10.1); Carbon Dioxide 29 mmol/L (21.0-32.0); Chloride 103 mmol/L (98-107); Creatinine,Serum 0.88 mg/dL (0.55-1.02); Estimated Glomerular Filt Rate 68 ml/min (>60); GFR (African American) 83 ML/MIN (>60); Globulin 3.5 gm/dl (1.3-3.2); Glucose 80 mg/dL (74-106); Potassium 4.5 mmoL/L (3.5-5.1); Sodium 139 mmol/L (136-145); Total Protein,Serum 6.9 gm/dL (6.4-8.2)
[2019-03-03 15:34] LABS: Calcium Oxalate Crystals,Urine 3+ /lpf; Hyaline Casts,Urine Occasional #/lpf (0)
[2019-03-03 15:35] LABS: Bacteria,Urine Trace /lpf; RBC,Urine Occasional #/hpf (0-3)
[2019-03-03 15:59] LABS: Erythrocyte Sedimentation Rate 16 mm/hr (0-20)
[2019-03-05 08:40] LABS: Complement C3 131 mg/dL (82-167); Hep A Ab, IgM Negative (Negative); Hepatitis B Core Antibody IgM Negative (Negative); Hepatitis B Surface Antigen Negative (Negative)
[2019-03-05 13:18] LABS: Anti-Centromere B Antibodies <0.2 AI (0.0-0.9); Anti-Jo-1 <0.2 AI (0.0-0.9); Anti-Smith Antibody <0.2 AI (0.0-0.9); Antichromatin Antibodies <0.2 AI (0.0-0.9); Antiscleroderma-70 Antibodies <0.2 AI (0.0-0.9); RNP Antibodies <0.2 AI (0.0-0.9); Sjogren's Anti-SS-A <0.2 AI (0.0-0.9); Sjogren's Anti-SS-B <0.2 AI (0.0-0.9)
[2019-03-05 16:11] LABS: Aldolase 2.6 U/L (3.3-10.3)
[2019-03-05 23:09] LABS: Anti-DNA (DS) Ab Qn 1 IU/mL (0-9); Antinuclear Antibodies, IFA Positive (.)
[2019-03-05 23:10] LABS: Anti-Cyclic Citrullinated Pept 6 units (0-19); Hepatitis C Antibody <0.1 s/co ratio (0.0-0.9); RA Latex Turbid. <10.0 IU/mL (0.0-13.9)
[2019-03-06 19:08] LABS: QuantiFERON-TB Gold Plus Negative (Negative)
[2019-03-09 08:45] LABS: Creatine Kinase 62 U/L (26-192)
== END ==
PROVIDERS: PCP Family Medicine; Visit Provider Internal Medicine
DX: D72.819 Decreased white blood cell count, unspecified (principal); M79.7 Fibromyalgia; R53.83 Other fatigue; R76.8 Other specified abnormal immunological findings in serum; Z79.1 Long term (current) use of non-steroidal anti-inflammatories (NSAID)
CPT/HCPCS: 36415; 80053; 80074; 81001; 82085; 82550; 85025; 85651; 86038; 86140; 86161; 86200; 86225; 86235; 86431; 86480

== ENCOUNTER → 2019-03-04 14:23 | Outpatient (CLI) | payer OTHER, SELFPAY ==
--- NOTE | 2019-03-04 14:26 | XR_ITS ---
XR chest 2V HISTORY: ITS.REASON: FIBROMYALGIA,FATIGUE,DECREASED WHITE BLOOD CELL COUNT ORDERING PHYSICIAN: Cleve Byrd DO PATIENT AGE: 48 years COMPARISON: 02/24/2019 FINDINGS: The cardiomediastinal silhouette and pulmonary vascularity are within normal limits. The lungs are clear without infiltrates, suspicious nodules, or pleural effusions. Epidural stimulator device remains in place. Old left seventh rib fracture noted No acute bony abnormalities. IMPRESSION: No change with no acute finding
== END ==
PROVIDERS: PCP Family Medicine; Visit Provider Internal Medicine
DX: M79.7 Fibromyalgia (principal); D72.819 Decreased white blood cell count, unspecified; R53.83 Other fatigue; R76.8 Other specified abnormal immunological findings in serum; Z79.1 Long term (current) use of non-steroidal anti-inflammatories (NSAID)
CPT/HCPCS: 71046

== ENCOUNTER → 2019-03-09 10:46 | Outpatient (CLI) | payer OTHER, SELFPAY ==
--- NOTE | 2019-03-09 10:50 | XR_ITS ---
XR hip RT 2-3V w/pelvis HISTORY: ITS.REASON: RT HIP PAIN ORDERING PHYSICIAN: Coco Harris APRN PATIENT AGE: 48 years COMPARISON: None FINDINGS: No fracture or dislocation is evident. No significant degenerative change. No lytic or blastic change. Unremarkable soft tissues. Suture line is noted along the right hemipelvis IMPRESSION: Negative right hip
--- NOTE | 2019-03-09 10:50 | XR_ITS ---
XR femur RT 2V CLINICAL INDICATION: ITS.REASON: RT HIP PAIN ORDERING PHYSICIAN: Coco Harris APRN PATIENT AGE: 48 years Comparison: None FINDINGS: No bony or joint abnormality IMPRESSION: Negative right femur
--- NOTE | 2019-08-30 15:27 | PC.NURSE ---
TRAMADOL 50MG TID WITH 2 REFILLS CALLED INTO [facility] PER PROVIDER ORDER
== END ==
PROVIDERS: PCP Family Medicine; Visit Provider Clinical Nurse Specialist Family Health
DX: M25.551 Pain in right hip (principal)
CPT/HCPCS: 73502; 73552

== ENCOUNTER → 2019-03-11 08:04 | Outpatient (CLI) | payer OTHER, SELFPAY ==
[2019-03-11 10:06] LABS: Alanine Aminotransferase 33 U/L (12-78); Albumin Level 3.3 gm/dL (3.4-5.0); Alkaline Phosphatase 90 U/L (46-116); Aspartate Amino Transferase 19 U/L (15-37); Bilirubin,Direct 0.1 mg/dL (0.0-0.2); Bilirubin,Indirect 0.1 mg/dL (0.0-0.9); Bilirubin,Total 0.2 mg/dL (0.2-1.0); Ferritin 55 ng/mL (8-388); Total Protein,Serum 6.5 gm/dL (6.4-8.2)
[2019-03-12 08:20] LABS: Iron 90 ug/dL (27-159); UIBC 295 ug/dL (131-425)
[2019-03-12 09:42] LABS: Occult Blood,Stool Negative (Negative)
[2019-03-13 04:30] LABS: ALT (SGPT) P5P 22 IU/L (0-40); Alpha 2-Macroglobulins, Qn 204 mg/dL (110-276); Apolipoprotein A-1 265 mg/dL (116-209); Bilirubin, Total 0.1 mg/dL (0.0-1.2); Fibrosis Score 0.01 (0.00-0.21); GGT 8 IU/L (0-60); Haptoglobin 110 mg/dL (34-200); Necroinflammat Activity Grade A0-No activity (.); Necroinflammat Activity Score 0.06 (0.00-0.17)
[2019-03-13 06:43] LABS: Deamidated Gliadin Abs, IgA 8 units (0-19); Endomysial IgA Antibody Negative (Negative); Iron Saturation 23 % (15-55); Tissue Transglutaminase IgA Ab <2 U/mL (0-3); Tissue Transglutaminase IgG Ab <2 U/mL (0-5)
[2019-03-13 06:44] LABS: Reticulin IgA Antibody Negative titer (Neg:<1:2.5)
[2019-03-13 18:02] LABS: Deamidated Gliadin Abs, IgG 2 units (0-19)
== END ==
PROVIDERS: Visit Provider Internal Medicine Gastroenterology
DX: R16.0 Hepatomegaly, not elsewhere classified (principal)
CPT/HCPCS: 36415; 80076; 81596; 82272; 82728; 83516; 83540; 83550; 86255; 86256; G0328

== ENCOUNTER → 2019-03-11 21:00 | Outpatient (CLI) | payer OTHER, SELFPAY | PROVIDERS: Visit Provider Internal Medicine Gastroenterology | DX: R16.0 Hepatomegaly, not elsewhere classified (principal) | CPT/HCPCS: 82272; G0328 ==

== ENCOUNTER → 2019-03-16 07:48 | Outpatient (CLI) | payer OTHER, SELFPAY ==
--- NOTE | 2019-03-16 07:50 | US_ITS ---
US abdomen limited History:Hepatomegaly, low white blood cell count Ordering Physician:Basil Hodgson MD Patient Age: 48 years FINDINGS Pancreas:Unremarkable. No obvious mass or abnormal fluid collection. No ductal dilatation Liver:There is mild hepatomegaly with the liver measuring 23 cm cephalad to caudad. There is somewhat coarse echotexture of the liver Right Kidney:Unremarkable. Normal size and. No hydronephrosis Gallbladder:Gallbladder is contracted with mild thickening of the gallbladder wall at 3 mm. No gallstones. No biliary dilatation. Impression: 1. Contracted gallbladder with mildly thickened wall. No stones apparent. 2. Hepatomegaly with coarsened echotexture of the liver which is nonspecific
== END ==
PROVIDERS: PCP Family Medicine; Visit Provider Internal Medicine Gastroenterology
DX: R16.0 Hepatomegaly, not elsewhere classified (principal)
CPT/HCPCS: 76705

== ENCOUNTER 2019-04-14 08:10 | Outpatient (CLI) | payer OTHER, SELFPAY ==
[2019-04-14 08:00] VITALS: BP 111/62; PULSE 69; RESP 18; TEMP 36.3; O2SAT 99
[2019-04-14 08:42] VITALS: BMI 22.9
[2019-04-14 09:00] VITALS: BP 111/62; PULSE 69; RESP 18; TEMP 36.3; O2SAT 99
--- NOTE | 2019-04-14 09:00 | PC.NURSE ---
Rituxan 1000mg per 400ml NS mixed by pharmacy and dose verified by Leonardo Martin, pharmacy and how to start the infusion at 25ml/hr and increase by 25ml/hr every 30 minutes if patient tolerated until the end of transfusion. IV site flushed and blood return visualized, patent and now started 904. Patient verbalized understanding to repot any s/s of adverse reaction as soon as she starts having them.
[2019-04-14 09:05] VITALS: BP 111/62; PULSE 69; RESP 18; TEMP 36.3; O2SAT 99
--- NOTE | 2019-04-14 09:35 | PC.NURSE ---
Patient is tolerating her Rituxan 1000mg in 400ml NS Rate was to be started at 25 ml/hr per Leonardo Martin, Pharmacy and to increase every 30 minutes if tolerated well. This is her first increase and no problems noted, was sleeping upon entering her room. Rituxan is now infusing at 50ml/hr. and plan to increase by 25 ml/hr at 1005 am. if patient is tolerating infusion well.
--- NOTE | 2019-04-14 11:00 | PC.NURSE ---
Patient doing well, tolerating her infusion without problems. she is now infusing at 100ml/hr. Patient was sleeping upon entering the room, she asked for another blanket. No other needs voiced at this time.
--- NOTE | 2019-04-14 12:35 | PC.NURSE ---
patient is tolerating her infusion well, now she is at 200ml/hr and this is the max at 400mg/hr till the end of the bag. No problems noted and patient resting while infusing is going in, she didn't want to have any lunch ordered at this time.
[2019-04-14 14:00] VITALS: BP 114/58; PULSE 68; RESP 18; TEMP 36.4
== END 2019-04-14 14:00 | disposition home or self-care (01) ==
LOC: INF 08:20
PROVIDERS: Visit Provider Internal Medicine
DX: M06.00 Rheumatoid arthritis without rheumatoid factor, unspecified site (principal)
CPT/HCPCS: 96360; 96361; 96365; 96374; 96375; 96413; 96415; J9312

== ENCOUNTER 2019-04-28 12:27 | Outpatient (CLI) | payer OTHER, SELFPAY ==
[2019-04-28] VITALS (14 sets, daily range): BP systolic 85–123; BP diastolic 54–75; PULSE 59–78; RESP 16–18; BMI 22.8
== END 2019-04-28 17:10 | disposition home or self-care (01) ==
LOC: INF 12:27
PROVIDERS: Visit Provider Internal Medicine
DX: M06.00 Rheumatoid arthritis without rheumatoid factor, unspecified site (principal)
CPT/HCPCS: 96413; 96415; J9312

== ENCOUNTER → 2019-05-18 13:30 | Outpatient (CLI) | payer OTHER, SELFPAY ==
--- NOTE | 2019-05-18 13:38 | US_ITS ---
US extremity RT limited CLINICAL INDICATION: ITS.REASON: right thigh hemotoma ORDERING PHYSICIAN: Natalia Dasilva MD PATIENT AGE: 48 years Comparison: None FINDINGS: There is heterogeneous subcutaneous echogenicity in the right lateral thigh corresponding to the area of palpable concern consistent with hematoma within the right vastus lateralis muscle. No drainable fluid collections were evident. The patient was scheduled for ultrasound-guided drainage however, this was not performed. The findings were discussed with . IMPRESSION: 1. No drainable fluid collections evident within the right lateral thigh. 2. Heterogeneous enlargement of the right vastus lateralis consistent with hematoma involvement
== END ==
PROVIDERS: PCP Family Medicine; Visit Provider Orthopaedic Surgery
DX: S70.11XA Contusion of right thigh, initial encounter (principal); V19.9XXA Pedal cyclist (driver) (passenger) injured in unspecified traffic accident, initial encounter
CPT/HCPCS: 76882

== ENCOUNTER → 2019-05-19 11:50 | Outpatient (CLI) | payer OTHER, SELFPAY ==
[2019-05-19 14:19] LABS: Basophils % 0.4 % (0.1-2.0); Eosinophils # 0.1 K/mm3 (0.0-0.4); Eosinophils % 2.5 % (0.1-12.0); Hematocrit 36.3 % (37.0-47.0); Hemoglobin 11.2 g/dL (12.2-16.2); Lymphocytes # 0.9 K/mm3 (0.7-4.5); Lymphocytes % 29.3 % (10-50); Mean Corpuscular HGB Conc 30.7 g/dL (31.8-35.4); Mean Corpuscular Hemoglobin 30.9 pg (27.0-31.2); Mean Corpuscular Volume 100.7 fl (81-99); Mean Platelet Volume 8.2 fl (7.4-10.4); Monocytes # 0.2 K/mm3 (0.1-1.0); Monocytes % 6.4 % (1.7-9.3); Neutrophils % 61.5 % (37.0-80.0); Platelet Count 343 K/mm3 (142-424); Red Blood Count 3.61 M/mm3 (4.20-5.40); Red Cell Distribution Width 12.9 % (11.5-17.5); White Blood Count 3.2 K/mm3 (4.8-10.8)
[2019-05-19 15:18] LABS: Erythrocyte Sedimentation Rate 27 mm/hr (0-20)
[2019-05-19 16:16] LABS: C-Reactive Protein < 0.2 mg/L (0.0-0.9)
== END ==
PROVIDERS: PCP Family Medicine; Visit Provider Orthopaedic Surgery
DX: S70.11XA Contusion of right thigh, initial encounter (principal); V19.9XXA Pedal cyclist (driver) (passenger) injured in unspecified traffic accident, initial encounter
CPT/HCPCS: 36415; 85025; 85651; 86140

== ENCOUNTER → 2019-07-22 10:29 | Outpatient (CLI) | payer OTHER, SELFPAY ==
--- NOTE | 2019-07-22 11:33 | CT_ITS ---
PROCEDURE: CT HIP RT WO/W CON CLINICAL HISTORY: s/p trauma february 2019 Pain and palpable abnormality of the anterior lateral 5 following trauma COMPARISON: No exams were available for comparison TECHNIQUE: 75 mL Optiray 350 Axial images obtained with sagittal and coronal reformats. All CT scans at the facility use one or more dose reduction, viz: automated exposure control, ma/kV adjustment per patient size (including targeted exams where dose is matched to indication, i.e. head), or iterative reconstruction technique. FINDINGS: The exam is performed without and with contrast. There is an elliptical shaped subcutaneous collection along the anterior and lateral aspect of the proximal thigh/hip. This begins at the level just superior to the greater trochanter and extends inferiorly for length of 8.8 cm measuring up to 1.7 cm in thickness. This extends anteriorly to posteriorly for length of 9 cm being the thickest posteriorly and superiorly at the region of the greater trochanter. This does not contain gas and does not have an enhancing rim. This likely represents a posttraumatic hematoma. The average density is 8 Hounsfield units both without and with contrast. There is no enhancement. The overlying bony structures are unremarkable. No acute fracture or dislocation. No muscular masses or abnormalities. IMPRESSION: Subcutaneous collection in the right hip and proximal thigh region as described above consistent with a hematoma. No abnormal enhancement or calcification. Dictated by: Jacob Jo MD 07/23/2019 06:56 Electronically signed by Jacob Jo MD in [place] 07/23/2019 06:56
== END ==
PROVIDERS: PCP Family Medicine; Visit Provider Orthopaedic Surgery
DX: M70.61 Trochanteric bursitis, right hip (principal)
CPT/HCPCS: 73702

== ENCOUNTER 2019-08-05 12:30 | Observation (INO) ==
--- NOTE | 2019-08-05 14:49 | Progress Note ---
[facility] Anesthesia Checklist - Patient Identification Patient Identification: Arm Band, Verbal (Name & ) - Structural Data Admitted From: Home Planned Operative Procedure/s: i and d thigh Consent for Planned Operative Procedure(s) Verified: Yes Verified Documents: History and Physical - NPO Status Verified Time NPO: 00:00 - Additional verifications Patient : No Anesthesia Reactions: No Hx Blood Transfusions: No Blood Transfusion Reaction: No Cephalosporin Allergy: No Previous Colonoscopy: No - Cardiovascular Assessment Heart Sounds: S1 & S2 Pulse Strength: Baseline Pulse Rhythm: Regular Peripheral Edema: No - Airway Assessment C-Spine Mobility Assessed: Yes TMJ Mobility Assessed: Yes Dentition: Good Dentition - Neurological Assessment Level of Consciousness: Awake, Alert, Appropriate Hx Seizures: No Numbness or tingling in extremities: No - Anesthesia Plan Anesthesia Risk discussed: Yes Anesthesia Plan: Verified ASA Class: I Anesthesia Type: [facility] History I have reviewed the patient's past medical history: Yes Medical History: Reports:: Anxiety Denies:: Cancer, Diabetes Mellitus Type 1, Diabetes Mellitus Type 2, Internal Pacemaker, Lung Disease, MRSA, Seizures *Have you ever received a pneumonia vaccine?: No *Have you received a flu vaccine this season?: Yes Other Medical History: Reports: Anemia, Arthritis, Fibromyalgia. Denies: Blood Transfusion Reaction Anesthesia experience/problems:: none Laterality Cases: Bilateral: Arthroscopy Knee Other Surgeries: Yes: Hysterectomy-Total. No: Pacemaker Amputation: No Fractures: No - *Social History Smoking Status: Never smoker Alcohol Intake: never Substance Use Type: denies use *Occupational Status:: employed Housing: house Household Members: spouse *Travel in the last 8 weeks: None - Psychiatric History Pschychiatric History:: Reports:: Anxiety Family Hx:: Diabetes, Stroke, Heart Attack, Coronary Artery Disease, Cancer
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
--- NOTE | 2019-08-06 07:37 | Pharmacy Consult Notes ---
[facility] Pharmacy VTE Monitoring - Patient Demographics Admission date: 08/05/19 Report Date: 08/06/19 Time: 07:37 Allergies/Adverse Reactions: Patient Allergies No Known Allergies Allergy (Verified 06/24/19 13:29) Height: 1.57 m Weight: 59.109 kg Patient Problems: Current Active Problems Traumatic seroma of right thigh (Acute) Greater trochanteric bursitis of right hip (Acute) Pain, postoperative, acute (Acute) - VTE Risk VTE Score: 4 VTE Risk Level: Low Risk - Prophylaxis VTE Prophylaxis Ordered?: Yes Types of VTE Prophylaxis: IPCS Thigh High Location of Applied Device: Bilateral Lower Extremeties - VTE Diagnosis Confirmed Treatment or plan recommended: Continue Current Treatment
--- NOTE | 2019-08-06 13:14 | Progress Note ---
Subjective Date: 08/06/19 Time: 12:00 Principal diagnosis: R thigh seroma + GT bursitis Interval history: The patient was doing well this morning but still requiring IV pain medication for relief. Oral meds were started and physical therapy saw her for mobilization. She is feeling better this afternoon so drain was pulled. PN: Obj Ex Vital signs: Temp Pulse Resp BP Pulse Ox 97.9 F 61 18 100/60 L 97 08/06/19 08:00 08/06/19 08:00 08/06/19 08:00 08/06/19 08:00 08/06/19 08:00 - Constitutional no acute distress - Routine HEENT Exam Head: Present: normocephalic Eye: Present: EOMI ENT: Present: mucous membranes moist - Routine Respiratory Exam Present: CTA bilaterally - Routine Cardiovascular Exam Present: RRR - Routine Extremities Exam Comments: R thigh dressings c/d/i, drain with scant output --> pulled dressings changed, incision c/d/i without periwound erythema +DF/PF/EHL RLE calf soft, non-tender RLE, negative Homans SILT distally RLE - Routine Skin Exam Absent: erythema, ecchymosis - Routine Neurological Exam Present: alert, oriented X3, moving all extremities, normal tone. Absent: sensory deficit, motor deficit, altered mental status Progress Note: A&P (1) Traumatic seroma of right thigh Status: Acute Current Visit: Yes (2) Greater trochanteric bursitis of right hip Status: Acute Current Visit: Yes (3) Pain, postoperative, acute Status: Acute Current Visit: Yes Assessment and Plan for All Diagnoses:: 48yo F POD 1 s/p R thigh seroma I&D with greater trochanteric bursectomy and IT band tenotomy -- smaller dressing applied, patient will wear compression shorts through the weekend; continue polar care device to ice the region frequently -- d/c home with outpatient f/u next Friday
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
== END 2019-08-06 13:55 | disposition home or self-care (01) ==
LOC: 2ND 12:30 → OR 12:30 → UNDODISOB 18:59
PROVIDERS: ADMIT Orthopaedic Surgery; ATTEND Orthopaedic Surgery
CPT/HCPCS: 87070; 87075; 87077; 87186; 87205; 96374; G0378; J0131; J2405

== ENCOUNTER → 2019-08-17 14:13 | Outpatient (CLI) | payer OTHER, SELFPAY ==
[2019-08-17 14:31] LABS: Basophils % 0.9 % (0.1-2.0); Eosinophils # 0.1 K/mm3 (0.0-0.4); Eosinophils % 3.4 % (0.1-12.0); Hematocrit 35.5 % (37.0-47.0); Hemoglobin 10.9 g/dL (12.2-16.2); Lymphocytes # 1.3 K/mm3 (0.7-4.5); Lymphocytes % 31.7 % (10-50); Mean Corpuscular HGB Conc 30.6 g/dL (31.8-35.4); Mean Corpuscular Hemoglobin 30.5 pg (27.0-31.2); Mean Corpuscular Volume 99.7 fl (81-99); Monocytes # 0.3 K/mm3 (0.1-1.0); Monocytes % 6.7 % (1.7-9.3); Neutrophils # 2.3 K/mm3 (1.8-7.8); Neutrophils % 57.4 % (37.0-80.0); Platelet Count 423 K/mm3 (142-424); Red Blood Count 3.56 M/mm3 (4.20-5.40); Red Cell Distribution Width 13.5 % (11.5-17.5)
[2019-08-17 17:16] LABS: Anion Gap 11.7 mEq/L (5-15); Blood Urea Nitrogen 12 mg/dL (7-18); C-Reactive Protein 0.4 mg/dL (0.0-0.9); Calcium 8.8 mg/dL (8.5-10.1); Carbon Dioxide 29 mmol/L (21.0-32.0); Chloride 101 mmol/L (98-107); Creatinine,Serum 0.73 mg/dL (0.55-1.02); Estimated Glomerular Filt Rate 85 ml/min (>60); GFR (African American) 103 ML/MIN (>60); Glucose 72 mg/dL (74-106); Potassium 4.7 mmoL/L (3.5-5.1); Sodium 137 mmol/L (136-145)
[2019-08-17 17:25] LABS: Erythrocyte Sedimentation Rate 22 mm/hr (0-20)
== END ==
PROVIDERS: Visit Provider Orthopaedic Surgery
DX: T79.2XXA Traumatic secondary and recurrent hemorrhage and seroma, initial encounter (principal)
CPT/HCPCS: 36415; 80048; 85025; 85651; 86140

== ENCOUNTER → 2019-08-24 08:22 | Outpatient (CLI) | payer OTHER, SELFPAY ==
--- NOTE | 2019-08-24 08:23 | MM_ITS ---
PROCEDURE: MM DIG SCREENING MAMM BI W/CAD CLINICAL INDICATION: SCREENING There is no personal or family history of breast cancer. COMPARISON: [facility] DIG MAMM-SCREEN SANTIAGO from 06/19/2015 [facility] DIG MAMM-SCREEN SANTIAGO from 06/21/2016 [facility] MM Dig screening mamm BI w/CAD from 08/20/2018 TECHNIQUE: Standard CC and MLO images were obtained. R2 CAD reviewed. FINDINGS: Prominent diffuse somewhat heterogenic fibroglandular densities are seen throughout both breasts. Again there is a stable asymmetric density lower right breast on the MLO view and not definitely seen on the CC view. It has been stable in appearance since mammograms 06/19/2015. There is no new or suspicious lesion in either breast and no suspicious microcalcifications. IMPRESSION: Moderate diffuse breast density with stable asymmetric density right breast BI-RAD Category: 2 Benign Finding(s) FOLLOW-UP: 1YR 1 Year Follow-up (A letter has been sent to the patient regarding results of the study.) Dictated by: Dr. Kelechi Morrison MD 08/27/2019 08:[address] Kelechi Morirson MD in [place] 08/27/2019 08:59
== END ==
PROVIDERS: PCP Family Medicine; Visit Provider Obstetrics & Gynecology
DX: Z12.31 Encounter for screening mammogram for malignant neoplasm of breast (principal)
CPT/HCPCS: 77067

== ENCOUNTER → 2019-08-27 08:40 | Outpatient (CLI) | payer OTHER, SELFPAY ==
--- NOTE | 2019-08-27 08:41 | XR_ITS ---
PROCEDURE: XR DEXA AXIAL SKELETON CLINICAL HISTORY: ASYMPTOMATIC The patient is postmenopausal, history of fracture as an adult COMPARISON: No exams were available for comparison FINDINGS: The average BMD lumbar spine L1 through L4 is 1.155 grams/centimeter squared and the T-score is -0.2. The total BMD right hip is 0.822 grams/centimeter sq with a T-score -1.5. The right femoral neck is 0.802 grams/centimeter sq with a T-score -1.7. Values for the left hip are similar IMPRESSION: Normal value lumbar spine, osteopenia for both hips. Consider follow-up study in approximately 2 years Dictated by: Dr. Kelechi Morrison MD 08/27/2019 10:[address] Kelechi Morrison MD in [place] 08/27/2019 10:11
== END ==
PROVIDERS: PCP Family Medicine; Visit Provider Obstetrics & Gynecology
DX: Z13.820 Encounter for screening for osteoporosis (principal); Z78.0 Asymptomatic menopausal state
CPT/HCPCS: 77080

== ENCOUNTER → 2019-09-01 13:58 | Outpatient (CLI) | payer OTHER, SELFPAY ==
--- NOTE | 2019-09-01 13:59 | US_ITS ---
PROCEDURE: US EXTREMITY RT LIMITED ULTRASOUND FINE NEEDLE ASPIRATION CLINICAL INDICATION: seroma Posttraumatic hematoma with recurrence seroma which showed positive cultures. RE- aspiration required COMPARISON: 05/18/2019, 07/22/2019 CT scan FINDINGS: There is a subcutaneous fluid collection present along the lateral aspect of the proximal thigh just anterior to the patient has a recent incision. This collection is difficult to measure due to its lymph but is at least 6.5 by 2.2 cm with 2 finger-like extensions inferiorly. This is consistent with a hematoma/seroma. This area was recently drained surgically. 1 of the cultures were positive for E coli therefore, aspiration of this collection was performed and sent for culture and sensitivity. Following obtaining informed consent under aseptic conditions and local anesthesia with 1 percent buffered lidocaine a 21 gauge needle was inserted into the collection and approximately 72 cc of serous clear fluid was aspirated and the collection resolved. There were no media complications. The fluid was sent for culture and sensitivity. IMPRESSION: 1. Subcutaneous fluid collection along the right lateral thigh consistent with seroma 2. Uneventful ultrasound-guided aspiration of this collection Dictated by: Jacob Jo MD 09/01/2019 19:24 Electronically signed by Jacob Jo MD in [place] 09/01/2019 19:24
== END ==
PROVIDERS: PCP Family Medicine; Visit Provider Orthopaedic Surgery
DX: T79.2XXA Traumatic secondary and recurrent hemorrhage and seroma, initial encounter (principal)
CPT/HCPCS: 10005; 76882; 76942; 87070; 87205

== ENCOUNTER → 2019-09-14 10:50 | Outpatient (CLI) | payer OTHER, SELFPAY ==
--- NOTE | 2019-09-14 10:51 | US_ITS ---
PROCEDURE: US BIOPSY GUIDANCE CLINICAL INDICATION: Recurrence of posttraumatic seroma COMPARISON: 09/01/2019 FINDINGS: Patient is status post posttraumatic seroma aspiration on 09/01/2019. the seroma has recurred and is causing discomfort. Dr. Dasilva has requested for the seroma to be aspirated and doxycycline injected into the space for Sclerodesis. Dr. Dasilva was present during this procedure. Following obtaining informed consent and time-out procedure under aseptic conditions and local anesthesia with 1 percent buffered lidocaine, a 21 gauge needle was inserted into the collection along the right lateral thigh. Approximately 70 cc of serosanguineous fluid was aspirated. The collection appeared to be nearly completely aspirated. Following this, 500 mg doxycycline in 25 mL of per paired solution was injected into the cavity under sonographic guidance. The needle was then removed. The patient was instructed to rotate 360 degrees every 10 minutes for 1 hour. After this, the patient returned to the ultrasound suite. Under sonographic guidance the collection was then again aspirated. Approximately 38 cc of a dark fluid was aspirated until the cavity was collapsed. The patient tolerated the procedure well without evidence of immediate complications. The patient was instructed to wear a compression garment continuously for at least 4 weeks. IMPRESSION: Uneventful aspiration and Sclerodesis of a posttraumatic seroma of the right thigh as described above. Dictated by: Jacob Jo MD 09/16/2019 06:32 Electronically signed by Jacob Jo MD in [place] 09/16/2019 06:32
== END ==
PROVIDERS: PCP Family Medicine; Visit Provider Orthopaedic Surgery
DX: T79.2XXA Traumatic secondary and recurrent hemorrhage and seroma, initial encounter (principal)
CPT/HCPCS: 76942

== ENCOUNTER 2019-11-05 12:08 | Outpatient (CLI) | payer OTHER, SELFPAY ==
[2019-11-05] VITALS (8 sets, daily range): BP systolic 100–120; BP diastolic 56–74; PULSE 58–76; RESP 18
== END 2019-11-05 14:37 | disposition home or self-care (01) ==
LOC: INF 12:13
PROVIDERS: Visit Provider Internal Medicine
DX: M06.00 Rheumatoid arthritis without rheumatoid factor, unspecified site (principal)
CPT/HCPCS: 96413; 96415; J9312

== ENCOUNTER → 2020-04-24 08:38 | Outpatient (POV) | payer OTHER, SELFPAY ==
[2020-04-24 08:45] VITALS: BP 128/72; PULSE 72; RESP 18; TEMP 36.6; O2SAT 99; BMI 23.8
--- NOTE | 2020-04-24 09:18 | P.CONS_ITS ---
[facility] Pain Management SOAP Note Subjective:: Patient is a pleasant 49-year-old white female who presents today for follow-up. Patient underwent a spinal cord stimulator paddle lead implantation. The company has since gone under she is unable to program it. She states that it is about 50% effective still in regards to her pain. She rates her pain a 5 out of 10. She does utilize tramadol at nighttime after work. Patient has recently started a new job and is doing well with this. Patient is taking tramadol half a tab at nighttime. We will continue this. Patient's Delia #[id number] reviewed and appropriate. ROS General: no recent weight change, no fever, no sleep disturbances Respiratory: no cough, no shortness of air, no recurring pulmonary infections Cardiovascular/Peripheral Vascular: No chest pain, No palpitations, no edema, no shortness of breath. Gastrointestinal: no new onset incontinence, normal bowel movements reported Genitourinary: no new onset incontinence Musculoskeletal: Back pain, neck pain Psychiatric: normal mood/ affect Neurological: [denies new onset weakness in extremities], [denies new onset balance issues] Objective:: Physical Exam General: Alert and oriented x3, no acute distress, pleasant and cooperative, [on room air] Lungs: Resps E/U, Symmetrical chest expansion, Eyes: PERRL Musculoskeletal: Flexion and extension of cervical and lumbar spine somewhat guarded secondary to pain, deep tendon reflexes normal, strength in upper and lower extremities [5/5], normal gait noted Neurological: speech clear, 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 Dr. Elise has reviewed this note and agrees with this plan of care. This note was dictated using voice recognition software and may contain errors or omissions Patient has been prescribed a controlled substance after being counseled on the medication, medication safety, and possible side effects. DELIA report has been obtained and reviewed prior to prescription and found to be appropriate. Opioid contract was reviewed and signed by the patient, and that they have agreed to all of the terms set forth by our compliance program. [facility] History I have reviewed the patient's past medical history: Yes Medical History: Reports:: Anxiety Denies:: Cancer, Diabetes Mellitus Type 1, Diabetes Mellitus Type 2, Internal Pacemaker, Lung Disease, MRSA, Seizures *Have you ever received a pneumonia vaccine?: Yes *Have you received a flu vaccine this season?: Yes Other Medical History: Reports: Anemia, Arthritis, Fibromyalgia. Denies: Blood Transfusion Reaction Laterality Cases: Bilateral: Arthroscopy Knee Other Surgeries: Yes: Hysterectomy-Total. No: Pacemaker Amputation: No Fractures: No - *Social History Smoking Status: Never smoker Alcohol Intake: never Substance Use Type: denies use *Occupational Status:: other Housing: house Household Members: spouse *Travel in the last 8 weeks: None - Psychiatric History Pschychiatric History:: Reports:: Anxiety Family Hx:: Diabetes, Stroke, Heart Attack, Coronary Artery Disease, Cancer
== END ==
PROVIDERS: Visit Provider Clinical Nurse Specialist Family Health
DX: M50.10 Cervical disc disorder with radiculopathy, unspecified cervical region (principal); M51.16 Intervertebral disc disorders with radiculopathy, lumbar region
CPT/HCPCS: 99212

== ENCOUNTER → 2020-05-25 09:26 | Outpatient (CLI) | payer OTHER, SELFPAY ==
[2020-05-25 09:47] LABS: Basophils % 1.1 % (0.1-2.0); Eosinophils # 0.1 K/mm3 (0.0-0.4); Eosinophils % 5.2 % (0.1-12.0); Hematocrit 39.7 % (37.0-47.0); Lymphocytes # 0.8 K/mm3 (0.7-4.5); Lymphocytes % 30.8 % (10-50); Mean Corpuscular HGB Conc 32.7 g/dL (31.8-35.4); Mean Corpuscular Hemoglobin 31.8 pg (27.0-31.2); Mean Corpuscular Volume 97.3 fl (81-99); Mean Platelet Volume 7.6 fl (7.4-10.4); Monocytes # 0.2 K/mm3 (0.1-1.0); Monocytes % 8.4 % (1.7-9.3); Neutrophils # 1.4 K/mm3 (1.8-7.8); Neutrophils % 54.5 % (37.0-80.0); Platelet Count 305 K/mm3 (142-424); Red Blood Count 4.08 M/mm3 (4.20-5.40); Red Cell Distribution Width 12.9 % (11.5-17.5); White Blood Count 2.5 K/mm3 (4.8-10.8)
[2020-05-25 10:22] LABS: Chloride 105 mmol/L (98-107)
[2020-05-25 10:23] LABS: Potassium 4.9 mmoL/L (3.5-5.1); Sodium 138 mmol/L (136-145)
[2020-05-25 10:25] LABS: Alanine Aminotransferase 25 U/L (12-78); Alkaline Phosphatase 92 U/L (38-126); Anion Gap 7.9 mEq/L (5-15); Aspartate Amino Transferase 37 U/L (14-36); Bilirubin,Total 0.2 mg/dl (0.2-1.3); Blood Urea Nitrogen 17 mg/dl (7-17); Carbon Dioxide 30 mmol/L (22.0-30.0); Cholesterol 222 mg/dl (140-200); Estimated Glomerular Filt Rate 89 ml/min (>60); GFR (African American) 107 ML/MIN (>60); Triglycerides 102 mg/dl (30-150); VLDL Cholesterol 20 mg/dL (0-40)
[2020-05-25 10:26] LABS: Albumin/Globulin Ratio 1.5 (1.1-1.8); Calcium 9.1 mg/dl (8.4-10.2); Globulin 2.6 g/dL (1.3-3.2); Glucose 98 mg/dl (74-100); Total Protein,Serum 6.6 g/dl (6.3-8.2)
[2020-05-25 10:37] LABS: Chol/HDL Ratio 1.6 (1-3.5); Direct LDL Cholesterol 88.04 mg/dL (100-129); HDL Cholesterol 136 mg/dl (40-60)
[2020-05-26 16:39] LABS: Estradiol 61.1 pg/mL (.)
[2020-05-30 06:39] LABS: 1,25 Dihydroxy Vitamin D 50 pg/mL (.); 1,25-Dihydroxy, Vitamin D-2 <10 pg/mL (.); 1,25-Dihydroxy, Vitamin D-3 50 pg/mL (.)
== END ==
PROVIDERS: Visit Provider Nurse Practitioner Obstetrics & Gynecology
DX: Z01.419 Encounter for gynecological examination (general) (routine) without abnormal findings (principal)
CPT/HCPCS: 36415; 80053; 80061; 82652; 82670; 85025

== ENCOUNTER → 2020-06-24 10:15 | Outpatient (CLI) | payer OTHER, SELFPAY ==
[2020-06-24 10:35] LABS: Basophils % 1.1 % (0.1-2.0); Eosinophils # 0.1 K/mm3 (0.0-0.4); Eosinophils % 3.7 % (0.1-12.0); Hematocrit 38.5 % (37.0-47.0); Lymphocytes # 1.1 K/mm3 (0.7-4.5); Lymphocytes % 40.8 % (10-50); Mean Corpuscular HGB Conc 33.7 g/dL (31.8-35.4); Mean Corpuscular Hemoglobin 31.6 pg (27.0-31.2); Mean Corpuscular Volume 93.6 fl (81-99); Mean Platelet Volume 7.9 fl (7.4-10.4); Monocytes # 0.2 K/mm3 (0.1-1.0); Monocytes % 7.1 % (1.7-9.3); Neutrophils # 1.2 K/mm3 (1.8-7.8); Neutrophils % 47.2 % (37.0-80.0); Platelet Count 237 K/mm3 (142-424); Red Blood Count 4.11 M/mm3 (4.20-5.40); Red Cell Distribution Width 12.5 % (11.5-17.5); White Blood Count 2.6 K/mm3 (4.8-10.8)
[2020-06-24 12:20] LABS: Alanine Aminotransferase 29 U/L (12-78); Albumin Level 4.1 g/dl (3.5-5.0); Albumin/Globulin Ratio 1.6 (1.1-1.8); Alkaline Phosphatase 75 U/L (38-126); Aspartate Amino Transferase 42 U/L (14-36); Bilirubin,Total 0.4 mg/dl (0.2-1.3); Blood Urea Nitrogen 14 mg/dl (7-17); Calcium 9.4 mg/dl (8.4-10.2); Carbon Dioxide 29 mmol/L (22.0-30.0); Chloride 102 mmol/L (98-107); Estimated Glomerular Filt Rate 76 ml/min (>60); GFR (African American) 92 ML/MIN (>60); Globulin 2.5 g/dL (1.3-3.2); Glucose 86 mg/dl (74-100); Sodium 138 mmol/L (136-145); Total Protein,Serum 6.6 g/dl (6.3-8.2)
== END ==
PROVIDERS: Visit Provider Nurse Practitioner Family
DX: D72.819 Decreased white blood cell count, unspecified (principal); M06.00 Rheumatoid arthritis without rheumatoid factor, unspecified site; Z79.1 Long term (current) use of non-steroidal anti-inflammatories (NSAID)
CPT/HCPCS: 36415; 80053; 85025

== ENCOUNTER → 2020-10-30 08:45 | Outpatient (POV) | payer OTHER, SELFPAY ==
[2020-10-30 09:01] VITALS: BP 115/74; PULSE 72; RESP 18; TEMP 36.4; O2SAT 98; BMI 22.4
--- NOTE | 2020-10-30 09:11 | P.CONS_ITS ---
[facility] Pain Management SOAP Note Subjective:: Pleasant 49-year-old white female who presents today for follow-up. Patient underwent a spinal cord stimulator paddle lead implantation. The company has since got under and she is unable to program it. She gets 50% effective relief with that however she is having difficulty with charging apparatus. She rates her pain a 6 out of 10. She utilizes tramadol at nighttime after work for pain. Patient's Braden #[id number] reviewed and appropriate. Patient and I discussed options in regard to her neuro stimulation. ROS General: no recent weight change, no fever, no sleep disturbances Respiratory: no cough, no shortness of air, no recurring pulmonary infections Cardiovascular/Peripheral Vascular: No chest pain, No palpitations, no edema, no shortness of breath. Gastrointestinal: no new onset incontinence, normal bowel movements reported Genitourinary: no new onset incontinence Musculoskeletal: Neck pain, back pain Psychiatric: normal mood/ affect Neurological: [denies new onset weakness in extremities], [denies new onset balance issues] Objective:: Physical Exam General: Alert and oriented x3, no acute distress, pleasant and cooperative, [on room air] Lungs: Resps E/U, Symmetrical chest expansion, Eyes: PERRL Musculoskeletal: Flexion and extension of lumbar cervical spine somewhat guarded secondary to pain, deep tendon reflexes normal, strength in upper and lower extremities [5/5], slightly antalgic gait noted 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 I am going to try to attempt to get a hold of the company to see if I can get any new charging apparatus. If we cannot get the patient stimulator to work appropriately we will discuss for placement. Patient is requesting a WUT stimulator. Dr. Elise has reviewed this note and agrees with this plan of care. This note was dictated using voice recognition software and may contain errors or omissions [facility] History I have reviewed the patient's past medical history: Yes Medical History: Reports:: Anxiety Denies:: Cancer, Diabetes Mellitus Type 1, Diabetes Mellitus Type 2, Internal Pacemaker, Lung Disease, MRSA, Seizures *Have you ever received a pneumonia vaccine?: Yes *Have you received a flu vaccine this season?: Yes Other Medical History: Reports: Anemia, Arthritis, Fibromyalgia. Denies: Blood Transfusion Reaction Laterality Cases: Bilateral: Arthroscopy Knee Other Surgeries: Yes: Hysterectomy-Total. No: Pacemaker Amputation: No Fractures: No - *Social History Smoking Status: Never smoker Alcohol Intake: never Substance Use Type: denies use *Occupational Status:: other Housing: house Household Members: spouse *Travel in the last 8 weeks: None - Psychiatric History Pschychiatric History:: Reports:: Anxiety Family Hx:: Diabetes, Stroke, Heart Attack, Coronary Artery Disease, Cancer
== END ==
PROVIDERS: PCP Family Medicine; Visit Provider Clinical Nurse Specialist Family Health
DX: M50.10 Cervical disc disorder with radiculopathy, unspecified cervical region (principal); M51.16 Intervertebral disc disorders with radiculopathy, lumbar region
CPT/HCPCS: 99212

== ENCOUNTER → 2021-02-22 17:16 | Outpatient (CLI) | payer OTHER, SELFPAY | PROVIDERS: PCP Physician Assistant; Referring Provider Physician Assistant; Visit Provider Physician Assistant | DX: R55 Syncope and collapse (principal) | CPT/HCPCS: 93225; 93226 ==

== ENCOUNTER → 2021-06-08 08:11 | Outpatient (CLI) | payer OTHER, SELFPAY | PROVIDERS: PCP Family Medicine; Visit Provider Anesthesiology | DX: M50.10 Cervical disc disorder with radiculopathy, unspecified cervical region (principal); M51.16 Intervertebral disc disorders with radiculopathy, lumbar region | CPT/HCPCS: 99212; G0463 ==

== ENCOUNTER → 2021-06-08 08:36 | Outpatient (POV) | payer OTHER, SELFPAY ==
--- NOTE | 2021-06-08 10:02 | PC.NURSE ---
called in Rx for Cymbalta 30mg daily with 1 refill to patient's pharmacy, per order of Dr. hector
[2021-06-08 10:05] VITALS: BP 122/71; PULSE 67; RESP 20; O2SAT 98; BMI 23.2
--- NOTE | 2021-06-08 14:28 | HMH.PMCON ---
Assessment and Plan - Assessment and plan all Dx Assessment and Plan for all problems:: Degenerative disc disease of the cervical and lumbar spine, cervical and lumbar radiculopathy Discussed with the patient that we will schedule her for spinal cord stimulation generator exchange to the Medtronic stimulation system per patient request. She currently has paddle leads in place in the cervical spine that were placed by a surgeon. We will continue to follow with her and establish a treatment plan in regards to proceeding with either percutaneous leads placed by either Dr. Elise or I versus new paddle lead placement by a surgeon. Meantime, I discussed with her that we can initiate Cymbalta in conjunction with her current Lyrica for additional neuropathic pain control. We will follow-up with her in 3 to 4 weeks for follow-up and reassessment of her pain symptoms. HPI - Data of Consult Patient: known to practice within the last 3 years Consult date: 06/08/21 Requesting Physician: Briana Putnam MD Primary Care Provider: Referral Provider, MD - Consult Narrative History of present illness: Ms. Rincon is a 50 year old female with degenerative disc disease of the cervical lumbar spine as well as cervical and lumbar radiculopathy jolting and chronic neck pain radiating into her arms and chronic low back pain radiating into her legs. She previously underwent a spinal cord stimulator paddle lead implantation with a new nuvectra system but states that she is unable to charge her battery and therefore has not been utilizing this treatment modality for the past year. She has trialed and failed conservative treatment including oral pain medication and injection therapy as well as home stretching program for greater than 6 weeks. She currently is taking tramadol 50 mg half a tablet every bedtime but she states that this provides very minimal pain relief. She states she is very sensitive to medication. She is also currently taking Lyrica 75 mg twice daily and states she is very sensitive to medication and is unable to tolerate higher dose or frequency due to the hangover effect and sedation. She is interested in pursuing spinal cord stimulation therapy with another system for additional pain relief as this treatment modality provided greater than 50% pain relief in her chronic pain symptoms. She is requesting exchanging her spinal cord stimulator from the nuvectra system to the Medtronic spinal cord stimulation system. CC: Briana Putnam MD [facility] History Medical History: Reports:: Anxiety Denies:: Cancer, Diabetes Mellitus Type 1, Diabetes Mellitus Type 2, Internal Pacemaker, Lung Disease, MRSA, Seizures *Have you ever received a pneumonia vaccine?: No *Have you received a flu vaccine this season?: Yes Other Medical History: Reports: Anemia, Arthritis, Fibromyalgia. Denies: Blood Transfusion Reaction Laterality Cases: Bilateral: Arthroscopy Knee Other Surgeries: Yes: Hysterectomy-Total. No: Pacemaker Amputation: No Fractures: No - *Social History Smoking Status: Never smoker Alcohol Intake: never Substance Use Type: denies use *Occupational Status:: employed Housing: house Household Members: spouse *Travel in the last 8 weeks: None - Psychiatric History Pschychiatric History:: Reports:: Anxiety Family Hx:: Diabetes, Stroke, Heart Attack, Coronary Artery Disease, Cancer Review of Systems - Review of Systems Review of systems:: pertinent systems reviewed and negative unless documented below Meds Home Medications Medication Instructions Recorded Confirmed Type Diclofenac Sodium/Misoprostol 1 each PO BID 12/01/17 06/08/21 History [Diclofenac-Misoprost 75-0.2 Tb] Duloxetine HCl 60 mg PO BID 12/01/17 06/08/21 History Cyclobenzaprine HCl [Flexeril 10mg 10 mg PO HS #10 tab 08/06/19 06/08/21 Rx tablet] Pregabalin 75 mg PO BID 10/30/20 06/08/21 History estradioL [Estradiol] 2 mg PO DAILY 06/08/21 06/08/21 History Allergies
== END ==
PROVIDERS: Visit Provider Anesthesiology Pain Medicine
DX: M50.10 Cervical disc disorder with radiculopathy, unspecified cervical region (principal); M51.16 Intervertebral disc disorders with radiculopathy, lumbar region
CPT/HCPCS: 99212; G0463

== ENCOUNTER → 2021-12-11 12:26 | Outpatient (CLI) | payer OTHER, SELFPAY ==
[2021-12-11 13:59] LABS: Basophils # 0.1 K/mm3 (0-0.2); Basophils % 1.8 % (0.1-2.0); Eosinophils # 0.2 K/mm3 (0.0-0.4); Eosinophils % 3.9 % (0.1-12.0); Hematocrit 39.9 % (37.0-47.0); Hemoglobin 12.5 g/dL (12.2-16.2); Lymphocytes # 1.1 K/mm3 (0.7-4.5); Lymphocytes % 19.2 % (10-50); Mean Corpuscular HGB Conc 31.4 g/dL (31.8-35.4); Mean Corpuscular Hemoglobin 30.7 pg (27.0-31.2); Mean Platelet Volume 8.2 fl (7.4-10.4); Monocytes # 0.4 K/mm3 (0.1-1.0); Neutrophils # 3.7 K/mm3 (1.8-7.8); Neutrophils % 68.2 % (37.0-80.0); Platelet Count 337 K/mm3 (142-424); Red Blood Count 4.08 M/mm3 (4.20-5.40); Red Cell Distribution Width 13.7 % (11.5-17.5); White Blood Count 5.5 K/mm3 (4.8-10.8)
[2021-12-11 14:26] LABS: Alanine Aminotransferase 19 U/L (12-78); Albumin Level 4.3 g/dl (3.5-5.0); Alkaline Phosphatase 101 U/L (38-126); Anion Gap 12.3 mEq/L (5-15); Aspartate Amino Transferase 32 U/L (14-36); Bilirubin,Total 0.2 mg/dl (0.2-1.3); Blood Urea Nitrogen 14 mg/dl (7-17); Calcium 9.5 mg/dl (8.4-10.2); Carbon Dioxide 28 mmol/L (22.0-30.0); Chloride 101 mmol/L (98-107); Estimated Glomerular Filt Rate 88 ml/min (>60); GFR (African American) 106 ML/MIN (>60); Globulin 2.2 g/dL (1.3-3.2); Glucose 93 mg/dl (74-100); Potassium 5.3 mmoL/L (3.5-5.1); Sodium 136 mmol/L (136-145); Total Protein,Serum 6.5 g/dl (6.3-8.2)
[2021-12-11 14:42] LABS: 25-OH Vitamin D, Total 50.4 ng/mL (30-100)
[2021-12-11 14:51] LABS: Free T4 (Free Thyroxine) 0.65 ng/dl (0.78-2.19)
[2021-12-11 14:57] LABS: Thyroid Stimulating Hormone 1.95 uIU/mL (0.465-4.68)
[2021-12-11 15:21] LABS: Erythrocyte Sedimentation Rate 15 mm/hr (0-30)
[2021-12-11 15:32] LABS: Vitamin B12 779 pg/mL (239-931)
[2021-12-11 15:43] LABS: Folate > 20.00 ng/mL
== END ==
PROVIDERS: PCP Family Medicine; Visit Provider Nurse Practitioner Family
DX: M06.00 Rheumatoid arthritis without rheumatoid factor, unspecified site (principal); R53.83 Other fatigue; Z79.1 Long term (current) use of non-steroidal anti-inflammatories (NSAID)
CPT/HCPCS: 36415; 80053; 82306; 82607; 82746; 84439; 84443; 85025; 85651

== ENCOUNTER → 2022-02-08 19:43 | Outpatient (CLI) | payer OTHER, SELFPAY ==
[2022-02-08 16:43] LABS: Free T4 (Free Thyroxine) 0.91 ng/dl (0.78-2.19)
[2022-02-08 16:54] LABS: Thyroid Stimulating Hormone 0.52 uIU/mL (0.465-4.68)
== END ==
PROVIDERS: Visit Provider Nurse Practitioner Family
DX: E03.9 Hypothyroidism, unspecified (principal)
CPT/HCPCS: 84439; 84443

== ENCOUNTER → 2022-02-22 09:46 | Outpatient (CLI) | payer OTHER, SELFPAY | PROVIDERS: PCP Nurse Practitioner Family; Visit Provider Internal Medicine Cardiovascular Disease | DX: R55 Syncope and collapse (principal); R94.31 Abnormal electrocardiogram [ECG] [EKG] | CPT/HCPCS: 93270 ==

== ENCOUNTER → 2022-03-15 07:08 | Outpatient (CLI) | payer SELFPAY ==
--- NOTE | 2022-03-15 07:08 | CT_ITS ---
FINAL REPORT CLINICAL HISTORY: syncope. nonsmoker. no chest pain. arrhythmia FINDINGS: CT CORONARY CALCIUM SCORE W/O TECHNIQUE: Thin-section axial images were obtained through the heart and coronary arteries per CT coronary calcium score protocol. This study was performed with techniques to keep radiation doses as low as reasonably achievable (ALARA). Individualized dose reduction techniques using automated exposure control or adjustment of mA and/or kV according to the patient's size were employed. FINDINGS: On the axial images, there is no coronary artery calcification identified. This gives a coronary artery calcium score of 0.00 based on the Agatston scale. This coronary artery calcium score places the patient within the 0 percentile based on age and gender. The heart size is normal. There is no pleural or pericardial effusion. Limited evaluation of the lungs reveal calcified granulomas in the left lower lobe. There is a noncalcified 8 mm nodule in the left lower lobe on image 17 of series 2. IMPRESSION: 0 percentile. Noncalcified left lower lobe nodule. Recommend dedicated chest CT for further evaluation. . Reviewed, Interpreted and Dictated by Avery Duckworth MD Transcribed by Herman Bernstein Authenticated by Avery Duckworth MD on 03/15/2022 01:27:18 PM [facility]
== END ==
PROVIDERS: PCP Nurse Practitioner Family; Visit Provider Internal Medicine
DX: R55 Syncope and collapse (principal); R94.31 Abnormal electrocardiogram [ECG] [EKG]
CPT/HCPCS: 75571

== ENCOUNTER → 2022-03-15 07:17 | Outpatient (CLI) | payer OTHER, SELFPAY ==
--- NOTE | 2022-03-15 07:17 | CA_ITS ---
APPROVED REPORT EXAM: Comprehensive 2D, Doppler, and color-flow Echocardiogram Rn Wound Care: Tatiana Ornelas RDCS Ht: 5 ft 2 in Wt: 124lbs BSA: 1.56 BP: 109/75 mmHg Indications: SYNCOPE,ABN EKG 2D Dimensions LVOT 1.75 cm (M/F) 1.5-2.5 M-Mode Dimensions RVDd 2.16 cm (0.9-2.6) LA Diam 2.67 cm (1.9-4.0) LVDd 4.38 cm (3.5-5.7) Ao Diam 2.73 cm (2.0-3.7) LVDs 3.09 cm (3.5-5.7) IVSd 0.53 cm (0.6-1.1) PWd 0.72 cm (0.6-1.1) EF (Teich) 56.70% FS 29.50% EDV (Teich) 86.80 mL TAPSE 2.17 (<1.7) ESV (Teich) 37.60 mL LV Diastology E Decel Time 213.00 (160-240 msec) E/A Ratio 1.1 MED E' 7.00 (< 7 cm/sec) E'/MED E' Ratio 7.59 (>14) LAT E' 9.60 (<10 cm/sec) E/LAT E' Ratio 5.53 (>14) Mitral Valve MV E Max Nikolas. 53.00 (40-130 cm/s) MV A Velocity 50.00 (40-130 cm/s) E/A Ratio 1.07 MV Decel. Time 213.00 (160-240 ms) MV PHT 62.00 ms Tricuspid Valve TR P. Velocity 225.00 cm/s RAP Estimate 10.00 mmHg RVSP 30.30 mmHg Left Ventricle Left atrium is normal size, left ventricle is normal size, there is no concentric left ventricular hypertrophy, estimated ejection fraction 55% with no regional wall motion abnormality, diastolic parameters are within normal range. Right Ventricle Right atrium and right ventricle are normal size and contractility. Aortic Valve Aortic valve is grossly normal, there is no aortic stenosis or aortic insufficiency. Mitral Valve Mitral valve is grossly normal, there is trace mitral regurgitation. Tricuspid Valve Tricuspid valve grossly normal, calculated right ventricular systolic pressure 30 mmHg. Pulmonic Valve Pulmonic valve is poorly visualized. Great Vessels Aortic root is normal size. Inferior vena cava is normal size with normal inspiratory collapse. Pericardium No significant pericardial effusion noted. Conclusion 1. Normal left ventricular size, preserved left ventricular systolic function, visually estimated ejection fraction 55% with no regional wall motion abnormality, diastolic parameters are within normal range. 2. Trace mitral and tricuspid regurgitation. 3. No significant pericardial effusion. 4. Inferior vena cava is normal size with normal inspiratory collapse. Electronically signed by : Harman Cameron MD 03/15/2022 12:52:32
== END ==
PROVIDERS: PCP Nurse Practitioner Family; Visit Provider Internal Medicine
DX: R55 Syncope and collapse (principal); R94.31 Abnormal electrocardiogram [ECG] [EKG]
CPT/HCPCS: 93306

== ENCOUNTER → 2022-03-15 09:18 | Outpatient (POV) | payer SELFPAY ==
--- NOTE | 2022-03-15 10:16 | HMH.PAINSOAP ---
[facility] Pain Management SOAP Note Subjective:: Patient is a pleasant 51-year-old white female who currently has a nonfunctioning Nuvectra from core stimulator system in for her neck pain and cervical radicular symptoms. She does have a paddle lead in. A spine surgeon did try to take out her paddle lead to replace it with a Medtronic paddle lead and was not able to do so. There was a lot of scar tissue around the paddle lead so the discussion today with the patient was to place percutaneous leads and trial the patient to see if we can get adequate relief with these percutaneous leads in place. This will be with the Medtronic system. Objective:: Alert and oriented x3 no acute distress. Patient does have an antalgic gait. Motor strength of the upper extremities is 5/5. There is no gross sensory deficit. Patient is doing very well with her low back pain. Assessment:: Degenerative disc disease of the cervical spine with cervical radiculopathy symptoms. Degenerative disease of lumbar spine with lumbar radiculopathy symptoms. Plan:: We will seek approval for percutaneous placement for leads in the cervical region for spinal cord stimulator trial for degenerative disc disease of the cervical spine with cervical radiculopathy symptoms. She does have a nonfunctioning paddle lead in place from Nuvectra in the cervical region. [facility] History Medical History: Reports:: Anxiety Denies:: Cancer, Diabetes Mellitus Type 1, Diabetes Mellitus Type 2, Internal Pacemaker, Lung Disease, MRSA, Seizures *Have you ever received a pneumonia vaccine?: No *Have you received a flu vaccine this season?: Yes Other Medical History: Reports: Anemia, Arthritis, Fibromyalgia. Denies: Blood Transfusion Reaction Laterality Cases: Bilateral: Arthroscopy Knee Other Surgeries: Yes: Hysterectomy-Total. No: Pacemaker Amputation: No Fractures: No - *Social History Smoking Status: Never smoker Alcohol Intake: never Substance Use Type: denies use *Occupational Status:: employed Housing: house Household Members: spouse *Travel in the last 8 weeks: Inside the [place] - Psychiatric History Pschychiatric History:: Reports:: Anxiety Family Hx:: Diabetes, Stroke, Heart Attack, Coronary Artery Disease, Cancer
[2022-03-15 10:23] VITALS: BP 101/46; PULSE 68; RESP 18; TEMP 36.2; O2SAT 100; BMI 22.3
== END ==
PROVIDERS: PCP Nurse Practitioner Family; Visit Provider Anesthesiology
DX: M50.10 Cervical disc disorder with radiculopathy, unspecified cervical region (principal); M51.16 Intervertebral disc disorders with radiculopathy, lumbar region
CPT/HCPCS: 99212; G0463

== ENCOUNTER → 2022-03-22 08:50 | Outpatient (CLI) | payer OTHER, SELFPAY ==
[2022-03-22 10:46] LABS: Free T4 (Free Thyroxine) 0.63 ng/dl (0.78-2.19)
[2022-03-22 11:01] LABS: Thyroid Stimulating Hormone 2.48 uIU/mL (0.465-4.68)
[2022-03-23 09:15] LABS: Triiodothyronine (T3) Free 2.5 pg/mL (2.0-4.4)
== END ==
PROVIDERS: Visit Provider Internal Medicine Endocrinology, Diabetes & Metabolism
DX: R94.6 Abnormal results of thyroid function studies (principal)
CPT/HCPCS: 36415; 84439; 84443; 84481

== ENCOUNTER → 2022-04-10 06:56 | Outpatient (CLI) | payer OTHER, SELFPAY ==
[2022-04-10 08:25] LABS: Basophils # 0.1 K/mm3 (0-0.2); Basophils % 2.4 % (0.1-2.0); Eosinophils # 0.3 K/mm3 (0.0-0.4); Eosinophils % 5.1 % (0.1-12.0); Hematocrit 37.5 % (37.0-47.0); Lymphocytes % 18.8 % (10-50); Mean Corpuscular Hemoglobin 30.2 pg (27.0-31.2); Mean Corpuscular Volume 94.5 fl (81-99); Mean Platelet Volume 8.3 fl (7.4-10.4); Monocytes # 0.4 K/mm3 (0.1-1.0); Monocytes % 6.7 % (1.7-9.3); Neutrophils # 3.5 K/mm3 (1.8-7.8); Neutrophils % 67.1 % (37.0-80.0); Platelet Count 399 K/mm3 (142-424); Red Blood Count 3.96 M/mm3 (4.20-5.40); Red Cell Distribution Width 14.7 % (11.5-17.5); White Blood Count 5.2 K/mm3 (4.8-10.8)
[2022-04-10 09:29] LABS: Anion Gap 11.5 mEq/L (5-15); Blood Urea Nitrogen 10 mg/dl (7-17); Carbon Dioxide 28 mmol/L (22.0-30.0); Chloride 103 mmol/L (98-107); Estimated Glomerular Filt Rate 88 ml/min (>60); GFR (African American) 106 ML/MIN (>60); Glucose 88 mg/dl (74-100); Potassium 4.5 mmoL/L (3.5-5.1); Sodium 138 mmol/L (136-145)
== END ==
PROVIDERS: Visit Provider Anesthesiology
DX: Z01.812 Encounter for preprocedural laboratory examination (principal); Z20.822 Contact with and (suspected) exposure to COVID-19; M51.36 Other intervertebral disc degeneration, lumbar region
CPT/HCPCS: 36415; 80048; 85025; C9803; U0003; U0005

== ENCOUNTER 2022-04-12 06:07 | Day surgery (SDC) | payer OTHER, SELFPAY ==
[2022-04-09 14:19] VITALS: BMI 22.3
[2022-04-12 06:19] VITALS: BP 106/72; PULSE 66; RESP 18; TEMP 36.3; O2SAT 99
--- NOTE | 2022-04-12 07:43 | P.PN_ITS ---
[facility] Anesthesia Checklist - Patient Identification Patient Identification: Arm Band - Structural Data Admitted From: Home Planned Operative Procedure/s: Trial Neurostimulator Lead Placement under Fluoroscopy Consent for Planned Operative Procedure(s) Verified: Yes Verified Documents: Surgical Consent, History and Physical - NPO Status Verified Time NPO: 00:00 - Additional verifications Anesthesia Reactions: No Hx Blood Transfusions: No Blood Transfusion Reaction: No - Airway Assessment C-Spine Mobility Assessed: Yes (mp2) TMJ Mobility Assessed: Yes Dentition: Good Dentition - Neurological Assessment Level of Consciousness: Awake, Alert - Anesthesia Plan Anesthesia Risk discussed: Yes Anesthesia Plan: Verified ASA Class: II Anesthesia Type: MAC [facility] History I have reviewed the patient's past medical history: Yes Medical History: Reports:: Anxiety Denies:: Cancer, Diabetes Mellitus Type 1, Diabetes Mellitus Type 2, Internal Pacemaker, Lung Disease, MRSA, Seizures *Have you ever received a pneumonia vaccine?: No *Have you received a flu vaccine this season?: No Other Medical History: Reports: Anemia, Arthritis, Fibromyalgia. Denies: Blood Transfusion Reaction Anesthesia experience/problems:: nac Laterality Cases: Bilateral: Arthroscopy Knee Other Surgeries: Yes: Hysterectomy-Total. No: Pacemaker Amputation: No Fractures: No - *Social History Last grade of school completed: High school graduate Smoking Status: Never smoker Alcohol Intake: never Substance Use Type: denies use *Occupational Status:: employed Housing: house Household Members: spouse *Travel in the last 8 weeks: None - Psychiatric History Pschychiatric History:: Reports:: Anxiety Family Hx:: Diabetes, Stroke, Heart Attack, Coronary Artery Disease, Cancer
[2022-04-12 09:10] VITALS: BP 114/68; PULSE 80; RESP 18; TEMP 36.1; O2SAT 100
[2022-04-12 09:20] VITALS: BP 109/66; PULSE 54; RESP 16; O2SAT 99
--- NOTE | 2022-04-12 09:24 | SUR.PHASEII ---
Stim rep @ bedside.
[2022-04-12 09:30] VITALS: BP 107/70; PULSE 65; RESP 16; O2SAT 100
[2022-04-12 09:40] VITALS: BP 110/71; PULSE 64; RESP 16; O2SAT 100
[2022-04-12 10:00] VITALS: BP 110/71; PULSE 64; RESP 16; TEMP 36.6; O2SAT 100
--- NOTE | 2022-04-12 10:25 | HMH.OPNOTE ---
Date of procedure: 04/12/22 Pre-op Diagnosis:: Postlaminectomy syndrome of cervical spine with cervical radiculopathy symptoms and degenerative disc disease of the cervical spine Post-op Diagnosis:: Same Procedure performed:: Spinal cord stimulator trial with epidural lead placement x2 in the cervical and thoracic region Surgeon:: Abdoul Elise MD VENDOR RELATIONSHIP MANAGER:: Juan Pablo Cunningham Anesthesia: MAC Estimated blood loss (mL): 1 Clinical Note:: This patient is a pleasant 51-year-old white female who previously had a Nuvectra paddle lead placed in the cervical region. This spinal cord stimulator system is no longer functioning. She did have the system removed. There was an attempted placement of a new Medtronic paddle lead in the area which was aborted by the orthopedic spine surgeon because of scarring in the area. The patient now presents for spinal cord stimulator trial with percutaneous lead placement to see if we can capture adequate stimulation and get the leads in the appropriate position. Patient has increasing neck pain with cervical radicular symptoms. Operative findings:: None Operative note:: Informed consent was obtained risk and benefits of the procedure were explained to the patient. Patient was taken to the procedure room. She is placed prone on the procedure table. The skin and subtenons tissues were anesthetized using lidocaine. A 17-gauge epidural needle was inserted into the T4-T5 interspace. After confirmation needle placement in the epidural space stimulating lead was inserted and with some difficulty we were able to bypass the scarring and one lead was able to get up to the C5-C6 C7 vertebral bodies. A second needle was inserted again in the T4-T5 interspace. Again after confirmation needle placement in the pleural space a second stimulating lead was inserted and because of scarring we were unable to advance beyond the C7 vertebral body. This lead was at the C7 T1-T2 vertebral bodies. Leads were checked in AP and lateral views. The leads were secured in place. The patient was taken recovery in stable condition. Patient tolerated the procedure well with no complications. Patient was programmed by the [employer] veterans contact representative with good stimulation in all areas of pain. Best stimulation seem to be at the C6-C7 vertebral bodies. Patient was discharged home neurologic intact with good relief of pain symptoms. Plan and disposition: We will continue to reprogram her throughout the week. We will follow-up with her in 1 week for lead pull. We will assess symptomology at that time. If she has any problems or questions she is to call us back in the pain clinic. Condition: stable Disposition: PACU Complications:: None
== END 2022-04-12 10:00 | disposition home or self-care (01) ==
LOC: OR 06:08
PROVIDERS: PCP Nurse Practitioner Family; Visit Provider Anesthesiology
PROC: (CPT 63650; principal; 2022-04-12 07:30)
DX: M50.122 Cervical disc disorder at C5-C6 level with radiculopathy (principal); M96.1 Postlaminectomy syndrome, not elsewhere classified; F41.9 Anxiety disorder, unspecified; M19.90 Unspecified osteoarthritis, unspecified site; M79.7 Fibromyalgia; Z79.890 Hormone replacement therapy; Z79.899 Other long term (current) drug therapy
CPT/HCPCS: 63650 ×2; 96374; C1897; J3370

== ENCOUNTER → 2022-04-18 08:13 | Outpatient (CLI) | payer OTHER, SELFPAY ==
--- NOTE | 2022-04-18 08:15 | CT_ITS ---
FINAL REPORT CLINICAL HISTORY: Nodule, Pulmonary AVM COMPARISON: CT calcium score dated 03/15/2022 FINDINGS: Thin section axial CT images of the chest were obtained with contrast. 3D reformatted images were also obtained. This study was performed with techniques to keep radiation doses as low as reasonably achievable (ALARA). Individualized dose reduction techniques using automated exposure control or adjustment of mA and/or kV according to the patient's size were employed. There is no evidence of pulmonary embolism. There is no evidence of pulmonary AVM. There is no evidence of thoracic aortic aneurysm or dissection. There is no evidence of axillary, mediastinal or hilar mass or adenopathy. There are several calcified granulomas. There is a ground-glass nodule in the left lower lobe measuring 7 mm which appears less solid than on the prior exam. There is a 2 mm new left lower lobe nodule on image 55 that is stable. No other pulmonary mass or nodule is identified. Limited images of the upper abdomen are unremarkable. IMPRESSION: No evidence of pulmonary embolism. No evidence of pulmonary AVM. Stable 2 mm left lower lobe nodule and previously seen 7 mm left lower lobe nodule is less solid than on the prior exam. Reviewed, Interpreted and Dictated by Arsalan Cespedes III, MD Transcribed by Yeny Agarwal Authenticated and [facility]
== END ==
PROVIDERS: PCP Nurse Practitioner Family; Visit Provider Internal Medicine Pulmonary Disease
DX: R06.00 Dyspnea, unspecified (principal)
CPT/HCPCS: 71275; Q9966; Q9967

== ENCOUNTER → 2022-04-18 08:56 | Outpatient (POV) | payer OTHER, SELFPAY ==
--- NOTE | 2022-04-18 09:51 | HMH.PAINSOAP ---
[facility] Pain Management SOAP Note Subjective:: Patient is a pleasant 52-year-old female who presents today for follow-up after SCS trial with the Medtronic system. Patient is currently being treated for degenerative disc disease of the cervical spine with cervical radiculopathy symptoms, postlaminectomy syndrome of the cervical spine. After having the spinal cord stimulator for a week, patient had significant relief of 80 to 90%. She reports that her pain is 1 out of 10. Denies any issues with system. Patient was able to increase her activity during her trial period. This is a successful trial. Interval History: In the past, patient previously had new Vectra paddle leads that was placed in the cervical region. This SCS system was not functioning anymore. There was an attempt to place a new Medtronic paddle lead in the area but due to the scarring in the area, they had to abort this procedure. Pt was referred to us for percutaneous lead placement. Review of Systems: General: No recent weight changes, no fever, no sleep disturbances Respiratory: No cough, no shortness of air, no recurring pulmonary infections Cardiovascular/peripheral vascular: No chest pain, no palpitations, no edema, no shortness of breath Gastrointestinal: No new onset incontinence, normal bowel movements reported Genitourinary: No new onset incontinence Musculoskeletal: Neck pain Psychiatric: [Normal mood/affect] Neurological: [Denies weakness in extremities], [denies balance issues] Objective:: Physical Exam: General: Alert and oriented x3, no acute distress, pleasant and cooperative Lungs: Respirations even and unlabored, symmetrical chest expansion Eyes: PERRL Musculoskeletal: Flexion and extension of cervical [spine] somewhat guarded secondary to pain, [antalgic gait noted] Neurological: Speech clear, no gross sensory deficit Assessment:: Degenerative disc disease of the cervical spine with cervical radiculopathy symptoms, postlaminectomy syndrome of the cervical spine Plan:: Patient had 80 to 90% relief after doing an SCS trial with Medtronic system. This is a successful trial. We will schedule the patient for a permanent placement of the Medtronic spinal cord stimulator. I have discussed this procedure in detail with the patient. Patient would like to proceed with this procedure. Per the procedure note, Dr. Elise tried entered the first lead through the T4-T5 interspace. With difficulty, he was able to bypass the scarring and one lead was ablel to get up to the C5-C6, C7 vertebral bodies. For the second lead, he tried to go through the T4-T5 again but was unable to bypass the C7 scar tissues. He left the second lead at C7, T1-T2 vertebral bodies. Best stimulation is best at C6-C7 vertebral bodies. Patient has been instructed to contact the clinic with any concerns before the next appointment. Dr. Elise has reviewed this note and agrees with this plan of care. This note was dictated using voice recognition software and make contain errors or omissions. [facility] History Medical History: Reports:: Anxiety Denies:: Cancer, Diabetes Mellitus Type 1, Diabetes Mellitus Type 2, Internal Pacemaker, Lung Disease, MRSA, Seizures *Have you ever received a pneumonia vaccine?: No *Have you received a flu vaccine this season?: No Other Medical History: Reports: Anemia, Arthritis, Fibromyalgia. Denies: Blood Transfusion Reaction Laterality Cases: Bilateral: Arthroscopy Knee Other Surgeries: Yes: Hysterectomy-Total. No: Pacemaker Amputation: No Fractures: No - *Social History Smoking Status: Never smoker Alcohol Intake: never Substance Use Type: denies use *Occupational Status:: employed Housing: house Household Members: spouse *Travel in the last 8 weeks: Inside the [place] - Psychiatric History Pschychiatric History:: Reports:: Anxiety Family Hx:: Diabetes, Stroke, Heart Attack, Coronary Artery Disease, Cancer
[2022-04-18 10:35] VITALS: BP 117/73; PULSE 65; RESP 18; TEMP 36.6; O2SAT 100; BMI 22.4
== END ==
PROVIDERS: Visit Provider Student in an Organized Health Care Education/Training Program
DX: M50.10 Cervical disc disorder with radiculopathy, unspecified cervical region (principal); M96.1 Postlaminectomy syndrome, not elsewhere classified
CPT/HCPCS: 99213; G0463

== ENCOUNTER → 2022-05-08 07:13 | Outpatient (CLI) | payer OTHER, SELFPAY ==
[2022-05-08 08:08] LABS: Eosinophils # 0.3 K/mm3 (0.0-0.4); Hematocrit 38.5 % (37.0-47.0); Hemoglobin 12.4 g/dL (12.2-16.2); Lymphocytes % 46.6 % (10-50); Mean Corpuscular HGB Conc 32.1 g/dL (31.8-35.4); Mean Corpuscular Hemoglobin 30.1 pg (27.0-31.2); Mean Corpuscular Volume 93.7 fl (81-99); Mean Platelet Volume 7.8 fl (7.4-10.4); Monocytes # 0.2 K/mm3 (0.1-1.0); Monocytes % 9.5 % (1.7-9.3); Neutrophils # 0.6 K/mm3 (1.8-7.8); Platelet Count 262 K/mm3 (142-424); Red Blood Count 4.11 M/mm3 (4.20-5.40); Red Cell Distribution Width 14.7 % (11.5-17.5); White Blood Count 2.1 K/mm3 (4.8-10.8)
[2022-05-08 08:15] LABS: Chloride 103 mmol/L (98-107); Potassium 4.7 mmoL/L (3.5-5.1); Sodium 136 mmol/L (136-145)
[2022-05-08 08:18] LABS: Alanine Aminotransferase 25 U/L (12-78); Albumin Level 3.8 g/dl (3.5-5.0); Albumin/Globulin Ratio 1.5 (1.1-1.8); Alkaline Phosphatase 106 U/L (38-126); Anion Gap 8.7 mEq/L (5-15); Aspartate Amino Transferase 49 U/L (14-36); Bilirubin,Total 0.2 mg/dl (0.2-1.3); Blood Urea Nitrogen 11 mg/dl (7-17); Carbon Dioxide 29 mmol/L (22.0-30.0); Estimated Glomerular Filt Rate 88 ml/min (>60); GFR (African American) 106 ML/MIN (>60); Globulin 2.5 g/dL (1.3-3.2); Total Protein,Serum 6.3 g/dl (6.3-8.2)
[2022-05-08 08:19] LABS: Calcium 8.9 mg/dl (8.4-10.2); Glucose 115 mg/dl (74-100)
[2022-05-08 08:24] LABS: C-Reactive Protein 5.9 mg/L (0-4)
[2022-05-08 09:19] LABS: Erythrocyte Sedimentation Rate 13 mm/hr (0-30)
== END ==
PROVIDERS: PCP Anesthesiology; Visit Provider Internal Medicine
DX: U07.1 COVID-19 (principal); D72.819 Decreased white blood cell count, unspecified; M51.36 Other intervertebral disc degeneration, lumbar region
CPT/HCPCS: 36415; 80053; 85025; 85651; 86140; C9803; U0003; U0005

== ENCOUNTER → 2022-05-23 14:57 | Outpatient (CLI) | payer OTHER, SELFPAY ==
[2022-05-23 15:25] LABS: Basophils # 0.1 K/mm3 (0-0.2); Basophils % 1.7 % (0.1-2.0); Eosinophils # 0.2 K/mm3 (0.0-0.4); Hematocrit 37.2 % (37.0-47.0); Hemoglobin 11.7 g/dL (12.2-16.2); Lymphocytes # 1.1 K/mm3 (0.7-4.5); Lymphocytes % 24.5 % (10-50); Mean Corpuscular HGB Conc 31.5 g/dL (31.8-35.4); Mean Platelet Volume 7.6 fl (7.4-10.4); Monocytes # 0.3 K/mm3 (0.1-1.0); Monocytes % 6.6 % (1.7-9.3); Neutrophils # 2.8 K/mm3 (1.8-7.8); Neutrophils % 62.2 % (37.0-80.0); Platelet Count 377 K/mm3 (142-424); Red Blood Count 3.91 M/mm3 (4.20-5.40); Red Cell Distribution Width 15.4 % (11.5-17.5); White Blood Count 4.6 K/mm3 (4.8-10.8)
[2022-05-25 15:03] LABS: Peripheral Smear Review Scanned Result
== END ==
PROVIDERS: PCP Physician Assistant; Visit Provider Physician Assistant
DX: D72.9 Disorder of white blood cells, unspecified (principal)
CPT/HCPCS: 36415; 85025

== ENCOUNTER 2022-06-04 06:06 | Day surgery (SDC) | payer OTHER, SELFPAY ==
[2022-05-07 10:57] VITALS: BMI 22.6
[2022-06-03 08:20] VITALS: BMI 22.6
[2022-06-04] VITALS (7 sets, daily range): BP systolic 104–121; BP diastolic 64–77; PULSE 65–78; RESP 16–18; TEMP 36.1–36.4; O2SAT 96–100
--- NOTE | 2022-06-04 08:14 | P.PN_ITS ---
[facility] Anesthesia Checklist - Structural Data Admitted From: Home Planned Operative Procedure/s: sp cord stimulator Consent for Planned Operative Procedure(s) Verified: Yes - Additional verifications Anesthesia Reactions: No Hx Blood Transfusions: No Blood Transfusion Reaction: No - Airway Assessment C-Spine Mobility Assessed: Yes TMJ Mobility Assessed: Yes Dentition: Good Dentition - Neurological Assessment Level of Consciousness: Awake, Alert, Appropriate - Anesthesia Plan Anesthesia Risk discussed: Yes Anesthesia Plan: Verified ASA Class: II Anesthesia Type: MAC [facility] History I have reviewed the patient's past medical history: Yes Medical History: Reports:: Anxiety Denies:: Cancer, Diabetes Mellitus Type 1, Diabetes Mellitus Type 2, Internal Pacemaker, Lung Disease, MRSA, Seizures *Have you ever received a pneumonia vaccine?: No *Have you received a flu vaccine this season?: No Other Medical History: Reports: Anemia, Arthritis, Fibromyalgia. Denies: Blood Transfusion Reaction Anesthesia experience/problems:: none Laterality Cases: Bilateral: Arthroscopy Knee Other Surgeries: Yes: Hysterectomy-Total. No: Pacemaker Amputation: No Fractures: No - *Social History Last grade of school completed: Advanced degree Smoking Status: Never smoker Alcohol Intake: never Substance Use Type: denies use *Occupational Status:: employed Housing: house Household Members: spouse, children *Travel in the last 8 weeks: None - Psychiatric History Pschychiatric History:: Reports:: Anxiety Family Hx:: Cancer, Coronary Artery Disease, Hyperlipidemia, Hypertension
--- NOTE | 2022-06-04 09:51 | HMH.OPNOTE ---
Date of procedure: 06/04/22 Pre-op Diagnosis:: Postlaminectomy syndrome of the cervical spine with cervical radiculopathy symptoms and degenerative disc disease of cervical spine Post-op Diagnosis:: Same Procedure performed:: Permanent placement spinal cord stimulator with epidural lead placement x2 in the cervical and thoracic region with generator placement Surgeon:: Abdoul Elise MD CROWD CONTROLLER:: Aamir Grossman Anesthesia: MAC Estimated blood loss (mL): 5 Clinical Note:: This patient is a pleasant 51-year-old white female who previously had a Nuvectra paddle lead placed in the cervical region. This spinal cord stimulator was not functioning so it was removed by a spine surgeon. There was attempts to replace it with a paddle lead in the cervical region unsuccessfully. This was because of scarring in the area. We were able to successfully place a percutaneous lead during her trial and she got great relief of her pain symptoms with stimulation in all areas of pain. She presents for permanent placement of a Medtronic spinal cord stimulator system with percutaneous leads. Operative findings:: None Operative note:: Informed consent was obtained and the risk and benefits of the procedure were explained to the patient. I made an incision adjacent to the T6-T7 vertebral bodies. I dissected down to the thoracic paraspinous fascia. A 17-gauge epidural needle was inserted and advanced into the T4-T5 interspace. After confirmation of needle placement in the epidural space stimulating lead was inserted and advanced very easily to the C5-C6-C7 and T1 vertebral bodies. This lead was right of midline. A second needle was then inserted and advanced into the T4-T5 interspace. Again after confirmation needle placement in the epidural space a second stimulating lead was inserted and advanced very easily to the C7 T1-T2-T3 vertebral bodies. This was left of midline. This cover all areas of programming that were successful during the trial. Leads were checked in AP and lateral views. The leads were then secured to the fascia with anchoring devices and 2-0 Prolene. The battery pocket was created in the left flank. I tunneled leads from the mid back area to the generator pocket and attached the leads to the generator. Impedances were checked and found to be okay. The battery was placed in a antibiotic pouch. Both incisions were irrigated with gentamicin. Both incisions were then closed with 2-0 Vicryl followed by 4-0 nylon. Patient tolerated the procedure well with no complications. Wound vacs were placed over both incisions. The patient was placed in an abdominal binder taken recovery in stable condition. The patient was programmed by the [employer] sales representative womens health with good stimulation in all areas of pain. Plan and disposition: We will follow-up with this patient in 1 week for wound check and reprogramming. We will follow-up in 3 weeks for suture removal. If patient has any problems questions she is to call us back in the pain clinic. We will discharge her home with antibiotics Bactrim DS twice a day for 5 days. Condition: stable Disposition: PACU Complications:: None
== END 2022-06-04 11:20 | disposition home or self-care (01) ==
LOC: OR 06:11
PROVIDERS: PCP Emergency Medicine; Visit Provider Anesthesiology
PROC: (CPT 63685; principal; 2022-06-04 07:30)
DX: M50.123 Cervical disc disorder at C6-C7 level with radiculopathy (principal); M96.1 Postlaminectomy syndrome, not elsewhere classified; M19.90 Unspecified osteoarthritis, unspecified site; F41.9 Anxiety disorder, unspecified; Z79.899 Other long term (current) drug therapy
CPT/HCPCS: 63685; 63650 ×2; 95971; 96374; C1778; C1820; J3370

== ENCOUNTER → 2022-06-11 09:22 | Outpatient (POV) | payer OTHER, SELFPAY ==
[2022-06-11 09:42] VITALS: BP 123/73; PULSE 75; RESP 20; TEMP 36.4; O2SAT 100; BMI 22.6
--- NOTE | 2022-06-11 10:06 | HMH.PAINSOAP ---
[facility] Pain Management SOAP Note Subjective:: Patient is a pleasant 51-year-old white female who presents today for follow-up of postprocedure spinal cord stimulator placement on 06/04/2022. We are currently treating the patient for postlaminectomy syndrome of cervical spine with cervical radiculopathy symptoms and degenerative disc disease of cervical spine. Patient denies any problems since the procedure. She states she has had better pain coverage with the stimulator. Patient rates her pain today a 5 out of 10. She states this is just incisional pain, describing it as a ache that is mainly in the lower incision site. Patient states that she has been following restrictions as instructed. She did present today with her wound VAC on. Patient's Braden is [id number]. It has been reviewed and is appropriate. Patient previously had a nonfunctioning nuvectra of paddle lead in her cervical region that was removed by a spine surgeon. Attempts to replace that paddle lead were unsuccessful due to scarring. Patient was able to have a successful percutaneous lead during her spinal cord stimulator trial and got relief of her pain symptoms. Patient has her spinal cord stimulator leads at C5-C6-C7 and C7-T1-T2-T3 vertebral bodies. Objective:: Physical exam General: Alert and oriented x3, no acute distress, pleasant and cooperative Lungs: Respirations even and nonlabored, symmetrical chest expansion Eyes: PE RRL musculoskeletal: Flexion and extension of cervical, lumbar spine somewhat guarded secondary to pain, antalgic gait noted Skin: Surgical incisions well approximated, no drainage, mild erythema noted to lumbar incision site neurological: Speech clear, no gross sensory deficit Assessment:: Postlaminectomy syndrome of cervical spine with cervical radiculopathy symptoms and degenerative disc disease of cervical spine Plan:: Patient states she has increased pain improvement with her spinal cord stimulator. Her incisions at midline and left lower lumbar are well approximated dry and intact. Mild erythema is noted at the lumbar incision site. [employer] auto service representative was present at today's visit. We will schedule the patient for a 2-week follow-up. Patient will return to clinic in 2 weeks for follow-up and suture removal. Patient has been instructed to contact the clinic with any concerns before the next appointment. Dr. Elise has reviewed this note and agrees with this plan of care. This note was dictated using voice recognition software and may contain errors or admissions. [facility] History I have reviewed the patient's past medical history: Yes Medical History: Reports:: Anxiety Denies:: Cancer, Diabetes Mellitus Type 1, Diabetes Mellitus Type 2, Internal Pacemaker, Lung Disease, MRSA, Seizures *Have you ever received a pneumonia vaccine?: No *Have you received a flu vaccine this season?: No Other Medical History: Reports: Anemia, Arthritis, Fibromyalgia. Denies: Blood Transfusion Reaction Laterality Cases: Bilateral: Arthroscopy Knee Other Surgeries: Yes: Hysterectomy-Total. No: Pacemaker Amputation: No Fractures: No - *Social History Smoking Status: Never smoker Alcohol Intake: never Substance Use Type: denies use *Occupational Status:: other Housing: house Household Members: spouse, children *Travel in the last 8 weeks: None - Psychiatric History Pschychiatric History:: Reports:: Anxiety Family Hx:: Cancer, Coronary Artery Disease, Hyperlipidemia, Hypertension
--- NOTE | 2022-06-11 10:27 | HMH.PMPROC ---
- Procedure Date: 06/11/22 Time: 10:27 Anesthesiologist:: Pawan Finley CRNA Complications:: None Pre-procedure Diagnosis:: Degnerative disease lumbar spine multilevel for lumbar radiculopathy symptoms. Post-procedure Diagnosis:: Same Indications for Procedure:: Patient is a pleasant 62-year-old male who comes our clinic today for intrathecal pain pump interrogation and refill. Patient is currently on Dilaudid 5 mg/mL at 0.88 mg/day. He is asking for a small increase due to pain in his legs. He reports the pain in his legs comes on if he is spending excess time standing or walking. He describes it as intermittent. Patient does have PTC dose. However, patient states he does not like using the PTC dose due to the fact he becomes more sleepy. Procedure Details:: Details of the procedure were explained to the patient. Patient was taken the procedure room placed in the supine position. The area over the pain pump was cleansed using chlorhexidine as a cleansing solution. The pump was accessed with ease using 22-gauge needle. 7.5 mL was removed. The pump was then refilled with 20 cc of Dilaudid 5 mg/mL incrementally. Needle was removed. Band-Aid applied. Patient tolerated procedure without difficulty. There are no complications. The pump was then interrogated. The pump was increased to 1 mg/day. Plan and Disposition:: Patient tolerated procedure without difficulty.
== END ==
PROVIDERS: PCP Emergency Medicine; Visit Provider Nurse Anesthetist, Certified Registered
DX: M50.123 Cervical disc disorder at C6-C7 level with radiculopathy (principal); M96.1 Postlaminectomy syndrome, not elsewhere classified
CPT/HCPCS: 99212; G0463

== ENCOUNTER → 2022-06-25 09:19 | Outpatient (POV) | payer OTHER, SELFPAY ==
[2022-06-25 09:30] VITALS: BP 112/73; PULSE 77; RESP 20; TEMP 36.3; O2SAT 100; BMI 23.4
[2022-06-25 09:51] LABS: Basophils # 0.1 K/mm3 (0-0.2); Basophils % 2.7 % (0.1-2.0); Eosinophils # 0.4 K/mm3 (0.0-0.4); Eosinophils % 10.7 % (0.1-12.0); Hematocrit 37.6 % (37.0-47.0); Hemoglobin 11.5 g/dL (12.2-16.2); Lymphocytes # 0.8 K/mm3 (0.7-4.5); Lymphocytes % 25.2 % (10-50); Mean Corpuscular HGB Conc 30.5 g/dL (31.8-35.4); Mean Corpuscular Hemoglobin 30.1 pg (27.0-31.2); Mean Corpuscular Volume 98.6 fl (81-99); Mean Platelet Volume 7.5 fl (7.4-10.4); Monocytes # 0.3 K/mm3 (0.1-1.0); Monocytes % 7.9 % (1.7-9.3); Neutrophils # 1.7 K/mm3 (1.8-7.8); Neutrophils % 53.3 % (37.0-80.0); Platelet Count 401 K/mm3 (142-424); Red Blood Count 3.82 M/mm3 (4.20-5.40); Red Cell Distribution Width 15.1 % (11.5-17.5); White Blood Count 3.3 K/mm3 (4.8-10.8)
--- NOTE | 2022-06-25 09:57 | P.CONS_ITS ---
[facility] Pain Management SOAP Note Subjective:: Patient is a pleasant 56-year-old female that presents today for follow-up of post procedure spinal cord stimulator placement on 06/04/2022 we are currently treating the patient for postlaminectomy syndrome of cervical spine with cervical radiculopathy symptoms and degenerative disc disease of cervical spine. Patient denies any problems since the procedure. She states she has done much better with pain coverage with the stimulator. Today she rates her pain a 1 out of 10. She states her incisional pain has gotten better. Patient states she is just had more discomfort due to the itching of her lower sutures. She states she has been following her restrictions as instructed. Her Braden is [id number]. It has been reviewed and appropriate. Review of systems General: No recent weight changes, no fever no sleep disturbances Respiratory: No cough, no shortness of air, no recurring pulmonary infections Cardiovascular/peripheral vascular: No chest pain, no palpitations, no edema, no shortness of breath Gastrointestinal: No new onset incontinence, normal bowel movements reported Genitourinary: No new onset incontinence Musculoskeletal: Neck pain Psychiatric: normal mood/affect Neurological: Denies weakness in extremities, denies balance issues Objective:: Physical exam General: Alert and oriented x3, no acute distress, pleasant and cooperative Lungs: Respirations even and nonlabored, symmetrical chest expansion Eyes: PERRL Musculoskeletal: Flexion and extension of cervical spine somewhat guarded secondary to pain, antalgic gait noted Skin: Surgical incisions well approximated, no drainage, no erythema noted to the lumbar incision site Neurological: Speech clear, no gross sensory deficit Assessment:: Postlaminectomy syndrome of cervical spine with cervical radiculopathy symptoms and degenerative disc disease of cervical spine Plan:: Patient has continued to have increased pain improvement with her spinal cord stimulator. Her incisions at both midline and left lower lumbar are well approximated, dry and intact. Sutures were removed at today's visit and Steri- Strips applied. Patient was instructed to continue restrictions until her next follow-up visit. Patient will return to clinic in 1 month for follow-up and reevaluation of symptoms. Patient has been instructed to contact the clinic with any concerns before the next appointment. Dr. Elise has reviewed this note and agrees with this plan of care. This note was dictated using voice recognition software and may contain errors or omissions [facility] History I have reviewed the patient's past medical history: Yes Medical History: Reports:: Anxiety Denies:: Cancer, Diabetes Mellitus Type 1, Diabetes Mellitus Type 2, Internal Pacemaker, Lung Disease, MRSA, Seizures *Have you ever received a pneumonia vaccine?: No *Have you received a flu vaccine this season?: No Other Medical History: Reports: Anemia, Arthritis, Fibromyalgia. Denies: Blood Transfusion Reaction Laterality Cases: Bilateral: Arthroscopy Knee Other Surgeries: Yes: Hysterectomy-Total. No: Pacemaker Amputation: No Fractures: No - *Social History Smoking Status: Never smoker Alcohol Intake: never Substance Use Type: denies use *Occupational Status:: other Housing: house Household Members: spouse, children *Travel in the last 8 weeks: Inside the [place] - Psychiatric History Pschychiatric History:: Reports:: Anxiety Family Hx:: Cancer, Coronary Artery Disease, Hyperlipidemia, Hypertension
== END ==
PROVIDERS: PCP Emergency Medicine; Visit Provider Nurse Anesthetist, Certified Registered
DX: M50.10 Cervical disc disorder with radiculopathy, unspecified cervical region (principal); R79.9 Abnormal finding of blood chemistry, unspecified; M96.1 Postlaminectomy syndrome, not elsewhere classified
CPT/HCPCS: 36415; 85025; 99213; G0463

== ENCOUNTER → 2022-08-01 13:53 | Outpatient (CLI) | payer OTHER, SELFPAY ==
[2022-08-01 15:11] LABS: Basophils # 0.1 K/mm3 (0-0.2); Basophils % 1.3 % (0.1-2.0); Eosinophils # 0.2 K/mm3 (0.0-0.4); Eosinophils % 3.2 % (0.1-12.0); Hematocrit 38.9 % (37.0-47.0); Hemoglobin 12.2 g/dL (12.2-16.2); Lymphocytes # 1.2 K/mm3 (0.7-4.5); Lymphocytes % 24.5 % (10-50); Mean Corpuscular HGB Conc 31.4 g/dL (31.8-35.4); Mean Corpuscular Hemoglobin 29.8 pg (27.0-31.2); Mean Corpuscular Volume 94.8 fl (81-99); Mean Platelet Volume 7.8 fl (7.4-10.4); Monocytes # 0.3 K/mm3 (0.1-1.0); Monocytes % 6.1 % (1.7-9.3); Neutrophils # 3.2 K/mm3 (1.8-7.8); Neutrophils % 64.9 % (37.0-80.0); Platelet Count 443 K/mm3 (142-424); Red Blood Count 4.11 M/mm3 (4.20-5.40); Red Cell Distribution Width 14.9 % (11.5-17.5); White Blood Count 4.9 K/mm3 (4.8-10.8)
[2022-08-01 15:36] LABS: Iron 45 ug/dL (37-170)
[2022-08-01 15:45] LABS: Total Iron Binding Capacity 449 ug/dL (265-497)
[2022-08-01 16:13] LABS: Ferritin 9.82 ng/ml (11.1-264)
[2022-08-01 16:46] LABS: Folate > 20.00 ng/mL; Vitamin B12 > 1000 pg/mL (239-931)
== END ==
PROVIDERS: PCP Emergency Medicine; Visit Provider Internal Medicine Medical Oncology
DX: D50.8 Other iron deficiency anemias (principal); R79.89 Other specified abnormal findings of blood chemistry; D72.819 Decreased white blood cell count, unspecified
CPT/HCPCS: 36415; 82607; 82728; 82746; 83540; 83550; 85025

== ENCOUNTER → 2022-08-12 08:40 | Outpatient (POV) | payer OTHER, SELFPAY ==
--- NOTE | 2022-08-12 09:15 | EXP.PAIN.SOA ---
[facility] Pain Management SOAP Note Subjective:: Patient is a pleasant 51-year-old female who presents today for follow-up. We are currently treating the patient for postlaminectomy syndrome of cervical spine with cervical radiculopathy symptoms, degenerative disc disease cervical spine. Patient does have a spinal cord stimulator that was placed on 06/04/2022. Patient today states her pain is a 1 out of 10. She states that she has had immense improvement of her pain symptoms following placement of the stimulator. Patient states she has been able to increase her activities of daily living including writing her bike daily. Patient is not currently on any scheduled medications. Her Braden is [id number]. It is been reviewed and appropriate. Review of Systems: General: No recent weight changes, no fever, no sleep disturbances Respiratory: No cough, no shortness of air, no recurring pulmonary infections Cardiovascular/peripheral vascular: No chest pain, no palpitations, no edema, no shortness of breath Gastrointestinal: No new onset incontinence, normal bowel movements reported Genitourinary: No new onset incontinence Musculoskeletal: Upper back pain Psychiatric: [Normal mood/affect] Neurological: [Denies weakness in extremities], [denies balance issues] Objective:: Physical Exam: General: Alert and oriented x3, no acute distress, pleasant and cooperative Lungs: Respirations even and unlabored, symmetrical chest expansion Eyes: PERRL Musculoskeletal: Flexion and extension of [cervical] [spine] somewhat guarded secondary to pain, [antalgic gait noted] Neurological: Speech clear, no gross sensory deficit Assessment:: Postlaminectomy syndrome of cervical spine with cervical radiculopathy symptoms, degenerative disc disease of cervical spine Plan:: Patient continues to do well following her spinal cord stimulator placement in May. At this time the patient has no complaints and states that her spinal cord stimulator is treating her pain symptoms and that she has been able to increase her activities of daily living. We will schedule her for a 3-month follow-up. Patient will return to clinic at 3 months for reevaluation of symptoms and follow-up. Patient has been instructed to contact the clinic with any concerns before the next appointment. Dr. Elise has reviewed this note and agrees with this plan of care. This note was dictated using voice recognition software and make contain errors or omissions. 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
[2022-08-12 09:16] VITALS: BP 120/73; PULSE 77; RESP 18; TEMP 36.7; O2SAT 100; BMI 22.8
== END ==
PROVIDERS: PCP Emergency Medicine; Visit Provider Nurse Practitioner Family
DX: M50.10 Cervical disc disorder with radiculopathy, unspecified cervical region (principal); M96.1 Postlaminectomy syndrome, not elsewhere classified; Z79.899 Other long term (current) drug therapy
CPT/HCPCS: 99212; G0463

== ENCOUNTER 2022-08-23 08:56 | Outpatient (CLI) | payer OTHER, SELFPAY ==
[2022-08-23 09:40] VITALS: BP 120/73; PULSE 63; RESP 16; O2SAT 100
[2022-08-23 10:10] VITALS: BP 122/79; PULSE 65; RESP 16
== END 2022-08-23 10:20 | disposition home or self-care (01) ==
LOC: INF 08:58
PROVIDERS: PCP Nurse Practitioner Family; Visit Provider Internal Medicine Medical Oncology
DX: D50.8 Other iron deficiency anemias (principal)
CPT/HCPCS: 96365; J1439

== ENCOUNTER → 2022-08-24 12:18 | Outpatient (CLI) | payer OTHER, SELFPAY ==
[2022-08-24 13:17] LABS: Basophils # 0.1 K/mm3 (0-0.2); Basophils % 0.9 % (0.1-2.0); Eosinophils # 0.2 K/mm3 (0.0-0.4); Eosinophils % 3.3 % (0.1-12.0); Hematocrit 38.1 % (37.0-47.0); Hemoglobin 11.9 g/dL (12.2-16.2); Lymphocytes # 0.7 K/mm3 (0.7-4.5); Lymphocytes % 14.4 % (10-50); Mean Corpuscular HGB Conc 31.1 g/dL (31.8-35.4); Mean Corpuscular Hemoglobin 29.1 pg (27.0-31.2); Mean Corpuscular Volume 93.6 fl (81-99); Mean Platelet Volume 7.8 fl (7.4-10.4); Monocytes # 0.4 K/mm3 (0.1-1.0); Monocytes % 7.5 % (1.7-9.3); Neutrophils # 3.8 K/mm3 (1.8-7.8); Neutrophils % 73.9 % (37.0-80.0); Platelet Count 330 K/mm3 (142-424); Red Blood Count 4.07 M/mm3 (4.20-5.40); Red Cell Distribution Width 14.7 % (11.5-17.5); White Blood Count 5.2 K/mm3 (4.8-10.8)
[2022-08-24 13:24] LABS: Chloride 101 mmol/L (98-107)
[2022-08-24 13:25] LABS: Potassium 4.8 mmoL/L (3.5-5.1); Sodium 140 mmol/L (136-145)
[2022-08-24 13:27] LABS: Alanine Aminotransferase 22 U/L (12-78); Alkaline Phosphatase 122 U/L (38-126); Anion Gap 14.8 mEq/L (5-15); Aspartate Amino Transferase 39 U/L (14-36); Blood Urea Nitrogen 10 mg/dl (7-17); Carbon Dioxide 29 mmol/L (22.0-30.0); Estimated Glomerular Filt Rate 88 ml/min (>60); GFR (African American) 106 ML/MIN (>60)
[2022-08-24 13:28] LABS: Albumin Level 4.3 g/dl (3.5-5.0); Albumin/Globulin Ratio 1.8 (1.1-1.8); Calcium 9.2 mg/dl (8.4-10.2); Cholesterol 246 mg/dl (140-200); Globulin 2.4 g/dL (1.3-3.2); Glucose 90 mg/dl (74-100); Total Protein,Serum 6.7 g/dl (6.3-8.2); Triglycerides 117 mg/dl (30-150); VLDL Cholesterol 23 mg/dL (0-40)
[2022-08-24 13:38] LABS: Bilirubin,Total < 0.1 mg/dl (0.2-1.3); Chol/HDL Ratio 1.6 (1-3.5); HDL Cholesterol 153 mg/dl (40-60)
[2022-08-24 13:43] LABS: Direct LDL Cholesterol 75.19 mg/dL (100-129)
[2022-08-24 13:47] LABS: Hemoglobin A1C 4.7 % (4.0-6.0)
[2022-08-24 15:00] LABS: Folate > 20.00 ng/mL; Vitamin B12 > 1000 pg/mL (239-931)
== END ==
PROVIDERS: PCP Emergency Medicine
DX: E34.9 Endocrine disorder, unspecified (principal); E66.3 Overweight; E55.9 Vitamin D deficiency, unspecified
CPT/HCPCS: 36415; 80053; 80061; 82607; 82746; 83036; 84443; 85025

== ENCOUNTER 2022-08-30 08:51 | Outpatient (CLI) | payer OTHER, SELFPAY ==
[2022-08-30 09:15] VITALS: BP 113/73; PULSE 67; RESP 16; O2SAT 100
[2022-08-30 09:50] VITALS: BP 120/70; PULSE 70; RESP 16; O2SAT 100
== END 2022-08-30 10:05 | disposition home or self-care (01) ==
LOC: INF 08:53
PROVIDERS: PCP Physician Assistant; Visit Provider Internal Medicine Medical Oncology
DX: D50.8 Other iron deficiency anemias (principal)
CPT/HCPCS: 96365; J1439

== ENCOUNTER → 2022-11-02 10:27 | Outpatient (CLI) | payer OTHER, SELFPAY ==
[2022-11-02 13:20] LABS: Basophils % 1.4 % (0.1-2.0); Eosinophils # 0.1 K/mm3 (0.0-0.4); Hematocrit 41.6 % (37.0-47.0); Hemoglobin 13.3 g/dL (12.2-16.2); Lymphocytes # 0.9 K/mm3 (0.7-4.5); Lymphocytes % 29.3 % (10-50); Mean Corpuscular HGB Conc 31.9 g/dL (31.8-35.4); Mean Corpuscular Volume 97.4 fl (81-99); Mean Platelet Volume 8.5 fl (7.4-10.4); Monocytes # 0.3 K/mm3 (0.1-1.0); Monocytes % 8.7 % (1.7-9.3); Neutrophils # 1.7 K/mm3 (1.8-7.8); Neutrophils % 56.6 % (37.0-80.0); Platelet Count 313 K/mm3 (142-424); Red Blood Count 4.27 M/mm3 (4.20-5.40)
[2022-11-02 15:13] LABS: Ferritin 266 ng/ml (11.1-264)
[2022-11-02 15:27] LABS: Vitamin B12 802 pg/mL (239-931)
[2022-11-02 15:54] LABS: Iron 148 ug/dL (37-170)
[2022-11-02 16:04] LABS: Total Iron Binding Capacity 275 ug/dL (265-497)
== END ==
PROVIDERS: PCP Emergency Medicine; Visit Provider Internal Medicine Medical Oncology
DX: D50.8 Other iron deficiency anemias (principal)
CPT/HCPCS: 36415; 82607; 82728; 83540; 83550; 85025

== ENCOUNTER → 2023-05-08 11:40 | Outpatient (CLI) | payer OTHER, SELFPAY ==
[2023-05-08 11:43] VITALS: BMI 21.4
--- NOTE | 2023-05-08 11:48 | PC.NURSE ---
Pt presents to outpt unit to have blood drawn for labs prior to md appt with Dr. Brenner in the oncology clinic today. Venipuncture performed using a butterfly access needle by Estela Hernandez RN to pt's lt ac x 1 stick. Blood drawn per order and needle was withdrawn-site secured with 2x2 gauze and coban.
[2023-05-08 12:00] LABS: Basophils % 0.7 % (0.1-2.0); Eosinophils # 0.3 K/mm3 (0.0-0.4); Eosinophils % 6.8 % (0.1-12.0); Hemoglobin 13.3 g/dL (12.2-16.2); Lymphocytes # 1.1 K/mm3 (0.7-4.5); Lymphocytes % 24.7 % (10-50); Mean Corpuscular HGB Conc 31.6 g/dL (31.8-35.4); Mean Corpuscular Hemoglobin 30.4 pg (27.0-31.2); Mean Corpuscular Volume 96.1 fl (81-99); Mean Platelet Volume 7.4 fl (7.4-10.4); Monocytes # 0.3 K/mm3 (0.1-1.0); Monocytes % 7.1 % (1.7-9.3); Neutrophils # 2.6 K/mm3 (1.8-7.8); Neutrophils % 60.8 % (37.0-80.0); Platelet Count 354 K/mm3 (142-424); Red Blood Count 4.37 M/mm3 (4.20-5.40); Red Cell Distribution Width 12.6 % (11.5-17.5); White Blood Count 4.3 K/mm3 (4.8-10.8)
[2023-05-08 13:01] LABS: Iron 103 ug/dL (37-170)
[2023-05-08 13:03] LABS: Ferritin 154 ng/ml (11.1-264)
[2023-05-08 13:10] LABS: Total Iron Binding Capacity 294 ug/dL (265-497)
== END ==
PROVIDERS: PCP Emergency Medicine; Visit Provider Internal Medicine Medical Oncology
DX: D72.819 Decreased white blood cell count, unspecified (principal); R53.83 Other fatigue
CPT/HCPCS: 36415; 82728; 83540; 83550; 85025

== ENCOUNTER → 2023-05-16 08:43 | Outpatient (CLI) | payer OTHER, SELFPAY ==
[2023-05-16 19:08] LABS: Alanine Aminotransferase 27 U/L (12-78); Albumin Level 4.2 g/dl (3.5-5.0); Albumin/Globulin Ratio 1.8 (1.1-1.8); Alkaline Phosphatase 109 U/L (38-126); Anion Gap 9.5 mEq/L (5-15); Aspartate Amino Transferase 38 U/L (14-36); Bilirubin,Total 0.2 mg/dl (0.2-1.3); Blood Urea Nitrogen 11 mg/dl (7-17); Calcium 9.1 mg/dl (8.4-10.2); Carbon Dioxide 32 mmol/L (22.0-30.0); Chloride 105 mmol/L (98-107); Cholesterol 224 mg/dl (140-200); Estimated Glomerular Filt Rate 88 ml/min (>60); GFR (African American) 106 ML/MIN (>60); Globulin 2.4 g/dL (1.3-3.2); Glucose 87 mg/dl (74-100); Potassium 5.5 mmoL/L (3.5-5.1); Sodium 141 mmol/L (136-145); Total Protein,Serum 6.6 g/dl (6.3-8.2); Triglycerides 100 mg/dl (30-150); VLDL Cholesterol 20 mg/dL (0-40)
[2023-05-16 19:22] LABS: Chol/HDL Ratio 1.6 (1-3.5); HDL Cholesterol 141 mg/dl (40-60)
[2023-05-16 19:25] LABS: 25-OH Vitamin D, Total 42.8 ng/mL (30-100)
[2023-05-16 20:16] LABS: Hemoglobin A1C 4.9 % (4.0-6.0)
== END ==
PROVIDERS: PCP Student in an Organized Health Care Education/Training Program; Visit Provider Student in an Organized Health Care Education/Training Program
DX: R30.0 Dysuria (principal); R53.83 Other fatigue; E55.9 Vitamin D deficiency, unspecified; Z13.220 Encounter for screening for lipoid disorders; Z13.1 Encounter for screening for diabetes mellitus; Z13.29 Encounter for screening for other suspected endocrine disorder; Z79.899 Other long term (current) drug therapy; B95.1 Streptococcus, group B, as the cause of diseases classified elsewhere
CPT/HCPCS: 80053; 80061; 82306; 83036; 84443; 87086; 87088; 87186

== ENCOUNTER → 2023-06-05 07:46 | Outpatient (CLI) | payer OTHER, SELFPAY ==
--- NOTE | 2023-06-05 07:46 | MM_ITS ---
PROCEDURE INFORMATION: Exam: MG Bilateral Screening 3D Mammography Exam date and time: 06/05/2023 7:53 AM Age: 52 years old Clinical indication: Screening examination TECHNIQUE: Imaging protocol: Bilateral Screening tomosynthesis and 2D mammography including computer-aided detection (CAD) when performed. COMPARISON: 1. MG MM DIG SCREENING MAMM BI W/CAD 08/24/2019 8:48 AM 2. MG SCBI MM Dig screening mamm BI w/CAD 08/20/2018 9:25 AM FINDINGS: MAMMOGRAPHY: Breast composition: There are scattered areas of fibroglandular density. Mass: None. Architectural distortion: None. Calcifications: No suspicious calcifications. Asymmetric density: None. Skin thickening: None. Axillary adenopathy: None. IMPRESSION: No mammographic evidence of malignancy. Annual screening is recommended unless otherwise clinically indicated. ASSESSMENT: BI-RADS Category 1: Negative
== END ==
PROVIDERS: PCP Student in an Organized Health Care Education/Training Program; Visit Provider Student in an Organized Health Care Education/Training Program
DX: Z12.31 Encounter for screening mammogram for malignant neoplasm of breast (principal)
CPT/HCPCS: 77063; 77067

== ENCOUNTER → 2023-06-26 10:48 | Outpatient (CLI) | payer OTHER, SELFPAY | PROVIDERS: PCP Student in an Organized Health Care Education/Training Program; Visit Provider Internal Medicine | DX: R42 Dizziness and giddiness (principal); R55 Syncope and collapse | CPT/HCPCS: 93270 ==

== ENCOUNTER → 2023-07-10 11:26 | Outpatient (CLI) | payer OTHER, SELFPAY ==
[2023-07-10 12:08] LABS: Basophils % 0.6 % (0.1-2.0); Eosinophils # 0.1 K/mm3 (0.0-0.4); Eosinophils % 2.3 % (0.1-12.0); Hematocrit 43.2 % (37.0-47.0); Hemoglobin 13.5 g/dL (12.2-16.2); Lymphocytes % 20.1 % (10-50); Mean Corpuscular HGB Conc 31.3 g/dL (31.8-35.4); Mean Corpuscular Hemoglobin 31.4 pg (27.0-31.2); Mean Corpuscular Volume 100.4 fl (81-99); Mean Platelet Volume 7.6 fl (7.4-10.4); Monocytes # 0.4 K/mm3 (0.1-1.0); Neutrophils # 3.5 K/mm3 (1.8-7.8); Platelet Count 317 K/mm3 (142-424); Red Blood Count 4.31 M/mm3 (4.20-5.40); Red Cell Distribution Width 12.7 % (11.5-17.5); White Blood Count 4.9 K/mm3 (4.8-10.8)
[2023-07-10 12:38] LABS: Erythrocyte Sedimentation Rate 3 mm/hr (0-30)
[2023-07-10 13:00] LABS: Chloride 103 mmol/L (98-107); Potassium 4.6 mmoL/L (3.5-5.1); Sodium 139 mmol/L (136-145)
[2023-07-10 13:03] LABS: Alanine Aminotransferase 26 U/L (12-78); Albumin/Globulin Ratio 1.7 (1.1-1.8); Alkaline Phosphatase 108 U/L (38-126); Anion Gap 11.6 mEq/L (5-15); Aspartate Amino Transferase 31 U/L (14-36); Bilirubin,Total 0.2 mg/dl (0.2-1.3); Blood Urea Nitrogen 11 mg/dl (7-17); Calcium 9.6 mg/dl (8.4-10.2); Carbon Dioxide 29 mmol/L (22.0-30.0); Estimated Glomerular Filt Rate 75 ml/min (>60); GFR (African American) 91 ML/MIN (>60); Globulin 2.4 g/dL (1.3-3.2); Glucose 92 mg/dl (74-100); Total Protein,Serum 6.4 g/dl (6.3-8.2)
[2023-07-10 13:09] LABS: C-Reactive Protein 3.6 mg/L (0-4)
[2023-07-11 13:04] LABS: HBsAg Screen Negative (Negative); HCV Ab Non Reactive (Non Reactive); Hep A Ab, IGM Negative (Negative); Hep B Core Ab, IgM Negative (Negative)
[2023-07-15 14:45] LABS: QuantiFERON-TB Gold Plus Negative (Negative)
== END ==
PROVIDERS: PCP Student in an Organized Health Care Education/Training Program; Visit Provider Internal Medicine
DX: D72.819 Decreased white blood cell count, unspecified (principal); M06.00 Rheumatoid arthritis without rheumatoid factor, unspecified site; M19.90 Unspecified osteoarthritis, unspecified site; M79.7 Fibromyalgia; R53.83 Other fatigue; Z79.899 Other long term (current) drug therapy
CPT/HCPCS: 36415; 80053; 80074; 85025; 85651; 86140; 86480

== ENCOUNTER → 2023-07-17 10:19 | Outpatient (CLI) | payer OTHER, SELFPAY ==
--- NOTE | 2023-07-17 10:24 | CT_ITS ---
FINAL REPORT TECHNIQUE: Axial images were obtained through the chest without contrast. This study was performed with techniques to keep radiation doses as low as reasonably achievable (ALARA). Individualized dose reduction techniques using automated exposure control or adjustment of mA and/or kV according to the patient's size were employed. CLINICAL HISTORY: 12 month follow-up MULTIPLE NODULES COMPARISON: 10/11/2019 FINDINGS: The heart size is normal. There is no pericardial or pleural effusion. Limited images of the upper abdomen are unremarkable. There is a 2 mm nodule in the periphery of the left lower lobe which is stable. Finding is best seen on image 113 of series 3. There is a mild ill-defined soft tissue inferior to a granuloma in the left lower lobe which is less evident than previous, probably postinflammatory. Streak artifact is seen arising from spinal stimulator leads. IMPRESSION: Stable 2 mm nodule in the left lower lobe. Ill-defined soft tissue in the left lower lobe is less evident than previous, probably postinflammatory. Reviewed, Interpreted and Dictated by Avery Duckworth MD Transcribed by Kalpana Richardson Authenticated and . [facility]
== END ==
PROVIDERS: PCP Student in an Organized Health Care Education/Training Program; Visit Provider Internal Medicine Pulmonary Disease
DX: R91.8 Other nonspecific abnormal finding of lung field (principal)
CPT/HCPCS: 71250

== ENCOUNTER → 2023-08-14 23:20 | Outpatient (CLI) | payer OTHER, SELFPAY | PROVIDERS: PCP Student in an Organized Health Care Education/Training Program; Visit Provider Student in an Organized Health Care Education/Training Program | DX: R35.0 Frequency of micturition (principal) | CPT/HCPCS: 87086 ==

== ENCOUNTER 2023-09-05 10:02 | Day surgery (SDC) | payer OTHER, SELFPAY ==
[2023-09-05 10:10] VITALS: BMI 22.6
[2023-09-05 10:22] VITALS: PULSE 77
[2023-09-05 10:24] VITALS: BP 100/63; PULSE 71; RESP 18; TEMP 37; O2SAT 97
[2023-09-05 10:43] VITALS: BP 106/67; PULSE 71; RESP 18; TEMP 37; O2SAT 100
--- NOTE | 2023-09-05 11:02 | EXP.LOOP ---
[facility] Loop Recorder Date: 09/05/23 Time: 10:40 Procedure Performed:: Implantation of loop recorder Indication:: Syncope Technique:: Patient was brought to the cardiac [employer] Source Operations Specialist. After informed consent obtained, 1% lidocaine with epinephrine was used to anesthetize the site along the left anterior aspect of the chest near the sternal border. Using the preformed scalpel, an incision was made and using the supplied preloaded apparatus, the loop recorder was placed subcutaneously without difficulty. Following the deployment of the loop recorder interrogation of the device was performed to ensure appropriate voltage was being detected. Once this was verified, Steri-Strips were placed over the incision and the patient was prepped to discharge home. Patient tolerated the procedure well with minimal discomfort. Impression:: Successful implantation of loop recorder Serial Number:: [place]: [id number] Plan:: Routine postop care
== END 2023-09-05 10:48 | disposition home or self-care (01) ==
PROVIDERS: PCP Student in an Organized Health Care Education/Training Program; Visit Provider Internal Medicine
DX: R55 Syncope and collapse (principal); Z79.899 Other long term (current) drug therapy
CPT/HCPCS: 33285; C1764

== ENCOUNTER 2023-10-02 08:48 | Day surgery (SDC) | payer OTHER, SELFPAY ==
[2023-09-23 09:09] VITALS: BMI 22.6
[2023-10-02 09:02] VITALS: BP 116/65; PULSE 66; RESP 18; TEMP 36.4; O2SAT 100
--- NOTE | 2023-10-02 09:31 | P.PNANES_ITS ---
[facility] Disclaimer: The information contained in this section may have been updated after the patient was seen, as this information can be updated by other users. 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 current occupational exposures/hazards: Yes caffeine: Yes [facility] Anesthesia Checklist Patient Identification Patient Identification: Arm Band and Verbal (Name & ) Structural Data Admitted From: Home Planned Operative Procedure/s: Colonoscopy Consent for Planned Operative Procedure(s) Verified: Yes NPO Status Verified Time NPO: 00:00 Additional verifications Anesthesia Reactions: No Hx Blood Transfusions: No Blood Transfusion Reaction: No Airway Assessment Mallampati Score:: Class I C-Spine Mobility Assessed: Yes TMJ Mobility Assessed: Yes Dentition: Good Dentition Neurological Assessment Level of Consciousness: Awake Hx Seizures: No Numbness or tingling in extremities: No Anesthesia Plan Anesthesia Risk discussed: Yes Anesthesia Plan: Verified ASA Class: II Anesthesia Type: MAC
[2023-10-02 09:44] VITALS: O2SAT 100
--- NOTE | 2023-10-02 09:58 | HMH.SCOPE ---
Procedure: Date: 10/02/23 Patient Date of :: 1970 Procedure Performed:: Screening colonoscopy Indications:: Family history of colon cancer Performing Provider:: Saige Krishnan MD Referring Provider:: Elsy Krishnan APRN Sedation:: Propofol Procedure:: After placing the patient in the left lateral decubitus position, the colonoscopy was gently inserted into the rectum and under direct visualization advanced to the cecum which was identified by transillumination in the right lower quadrant, identification of the ileocecal valve, appendiceal orifice, and cecal strap. Color, texture, mucosa, and anatomy of the colon were carefully examined with the scope. Findings:: Anal canal: normal Rectum: normal Sigmoid colon: normal without polyps or inflammatory changes Descending colon: normal without polyps or inflammatory changes Splenic flexure: normal Transverse colon: normal without polyps or inflammatory changes Hepatic flexure: normal Ascending colon: normal without polyps or inflammatory changes Cecum: normal Terminal ileum: not visualized Impression: Normal colonoscopy Recommendations:: Follow up examination in about FIVE years or so, sooner if clinically indicated in view of strong family history of colon cancer. Complications:: None Estimated blood obtained (mL): 0 Colonoscopy Component Colonoscopy Component Was a colonoscopy performed during today's procedure?: Yes Recommended follow up colonoscopy of at least 10 years?: No If no, follow up colonoscopy recommended in ___ years?: Five Reason for not recommending >/= 10 yr follow-up interval?: As noted in report
[2023-10-02 10:00] VITALS: BP 82/47; PULSE 65; RESP 16; TEMP 36.2; O2SAT 97
[2023-10-02 10:10] VITALS: BP 91/58; PULSE 60; RESP 16; O2SAT 100
[2023-10-02 10:20] VITALS: BP 96/66; PULSE 59; RESP 18; O2SAT 96
[2023-10-02 10:30] VITALS: BP 132/84; PULSE 62; RESP 18; O2SAT 99
== END 2023-10-02 10:40 | disposition home or self-care (01) ==
PROVIDERS: PCP Student in an Organized Health Care Education/Training Program; Visit Provider Internal Medicine Gastroenterology
PROC: (CPT 45378; principal; 2023-10-02 10:00)
DX: Z12.11 Encounter for screening for malignant neoplasm of colon (principal); Z86.010 Personal history of colon polyps
CPT/HCPCS: 45378

== ENCOUNTER → 2023-10-16 08:54 | Outpatient (CLI) | payer OTHER, SELFPAY | PROVIDERS: PCP Student in an Organized Health Care Education/Training Program; Visit Provider Student in an Organized Health Care Education/Training Program | DX: J02.9 Acute pharyngitis, unspecified (principal) | CPT/HCPCS: 87070 ==

== ENCOUNTER 2024-01-02 09:32 | Outpatient (CLI) | payer OTHER, SELFPAY ==
[2024-01-02 12:47] LABS: Vitamin B12 623 pg/mL (239-931)
[2024-01-02 12:54] LABS: Folate > 20.00 ng/mL
== END 2024-01-02 23:59 ==
PROVIDERS: PCP Student in an Organized Health Care Education/Training Program; Visit Provider Nurse Practitioner Family
DX: R42 Dizziness and giddiness (principal); R55 Syncope and collapse
CPT/HCPCS: 36415; 82607; 82746; 95819

== ENCOUNTER 2024-01-15 07:48 | Outpatient (CLI) | payer OTHER, SELFPAY ==
--- NOTE | 2024-01-15 07:48 | MR_ITS ---
FINAL REPORT TECHNIQUE: Multiplanar and multisequence imaging of the brain was obtained before and after contrast administration. CLINICAL HISTORY: HEADACHE FINDINGS: The gyri and sulci are within normal limits for age. There is no mass effect or midline shift. There is a single subcortical focus of T2 abnormality in the right frontal lobe of uncertain significance. No hydrocephalus. The cerebellum and brainstem have an unremarkable appearance. There are no areas of restricted diffusion on diffusion weighted images to suggest acute infarct. Soft tissues are without acute abnormality. No pathologic contrast enhancement is identified. IMPRESSION: No acute intracranial abnormality and no pathologic contrast enhancement. Reviewed, Interpreted and Dictated by Jessica Meeks MD Transcribed by Kalpana Richardson Authenticated and [facility]
[2024-01-15] MEDS: GADOTERIDOL INJ 17ML SYRINGE 10 ML IV (09:01)
[2024-01-15] MEDS: SODIUM CHLORIDE 0.9% 10ML SYR (RAD ONLY) 10 ML IV (09:01)
== END 2024-01-15 23:59 ==
LOC: RAD 07:48
PROVIDERS: PCP Student in an Organized Health Care Education/Training Program; Visit Provider Nurse Practitioner Family
DX: R42 Dizziness and giddiness (principal); R55 Syncope and collapse
CPT/HCPCS: 70553; A9576

== ENCOUNTER 2024-01-16 08:47 | Outpatient (CLI) | payer OTHER, SELFPAY ==
--- NOTE | 2024-01-16 08:48 | CT_ITS ---
FINAL REPORT TECHNIQUE: Thin section axial images are obtained through the brain after intravenous contrast injection. Multiplanar reconstructions were obtained from the axial data. Exam was performed using dose reduction technique per the ALARA principal. CLINICAL HISTORY: Eval posterior circulation COMPARISON: None FINDINGS: The intracerebral portions of the carotid arteries are patent. The anterior and middle cerebral arteries are patent. The basilar artery is patent. The left vertebral artery is dominant. The posterior cerebral arteries arise from the basilar artery. [place] is intact. There is no significant stenosis, aneurysm, or AVM. IMPRESSION: Unremarkable CT angiogram of the intracerebral vasculature. Reviewed, Interpreted and Dictated by Jessica Meeks MD Transcribed by Susan Hatfield Authenticated and [facility]
--- NOTE | 2024-01-16 08:48 | CT_ITS ---
FINAL REPORT TECHNIQUE: Thin section axial images were obtained through the neck after contrast administration per CT angiogram protocol. Multiplanar reconstruction images were obtained from the axial data. Exam was performed using dose reduction technique. CLINICAL HISTORY: Eval carotid arteries COMPARISON: None FINDINGS: CTA NECK: Aortic arch: There is a normal three-vessel configuration to the aortic arch. There is no significant stenosis of the great vessels at their origins. Right carotid artery: The right common carotid artery is patent without stenosis. The cervical portions of the right internal carotid artery are patent without stenosis. Left carotid artery: The left common carotid artery is patent without stenosis. The cervical portions of the left internal carotid artery are patent without stenosis. Vertebral arteries: The vertebral arteries are patent. The left vertebral artery is dominant. Other soft tissues: No acute abnormalities.. IMPRESSION: No significant stenosis or occlusion. Reviewed, Interpreted and Dictated by Jessica Meeks MD Transcribed by Susan Hatfield Authenticated and [facility]
[2024-01-16] MEDS: 0.9 % SODIUM CHLORIDE 50 ML VIAL IV (09:31)
[2024-01-16] MEDS: IOPAMIDOL-370 (76%);100ML BOTTLE 100 ML IV (09:32)
[2024-01-16] MEDS: SODIUM CHLORIDE 0.9% 10ML SYR (RAD ONLY) 10 ML IV (09:32)
== END 2024-01-16 23:59 ==
LOC: RAD 08:48
PROVIDERS: PCP Student in an Organized Health Care Education/Training Program; Visit Provider Nurse Practitioner Family
DX: R42 Dizziness and giddiness (principal); R55 Syncope and collapse
CPT/HCPCS: 70496; 70498; Q9967

== ENCOUNTER 2024-04-29 10:17 | Outpatient (CLI) | payer OTHER, SELFPAY ==
--- NOTE | 2024-04-29 10:17 | CA_ITS ---
APPROVED REPORT EXAM: Comprehensive 2D, Doppler, and color-flow Echocardiogram Logging Superintendent: Mei Roque, RT(R) Ht: 5 ft 1 in Wt: 120lbs BSA: 1.52 BP: 96/67 mmHg Indications: syncope, abn EKG, RA, loop recorder 2D Dimensions LVEF (Perales's) 57.60 % F: 54 - 74 LV Volume 72.00 mL F: 46 - 106 LV Volume Index 47.4 mL/m2 F: 29 - 61 LA Volume 25.30 mL LA Volume Index 16.64 mL/m2 (M/F) 16-34 EF AP4 53.40 % EF AP2 59.4 % EF BP 57.6 % GL Strain -19.3 % M-Mode Dimensions RVDd 2.26 cm (0.9-2.6) LA Diam 2.48 cm (1.9-4.0) LVDd 4.35 cm (3.5-5.7) LVDs 3.11 cm (3.5-5.7) IVSd 0.67 cm (0.6-1.1) PWd 0.61 cm (0.6-1.1) EF (Teich) 55.30% FS 28.50% EDV (Teich) 85.40 mL ESV (Teich) 38.20 mL LV Diastology E Decel Time 307 (160-240 msec) E/A Ratio 0.8 Mitral Valve MV E Max Nikolas. 54.0 (40-130 cm/s) MV A Velocity 64.0 (40-130 cm/s) E/A Ratio 0.85 MV PHT 90.0 ms Tricuspid Valve TR P. Velocity 246.00 cm/s RAP Estimate 10.00 mmHg RVSP 34.20 mmHg Left Ventricle The left ventricle is normal size. The left ventricular systolic function is normal. The left ventricular ejection fraction is within the normal range. There is normal left ventricular wall thickness. There is normal LV segmental wall motion. The left ventricular diastolic function is normal. LVEF is 55%. Right Ventricle The right ventricle is normal size. The right ventricular systolic function is normal. Atria The left atrium size is normal. The right atrium size is normal. There is no Doppler evidence of interatrial shunt. Aortic Valve The aortic valve is mildly thickened. There is no aortic valvular stenosis. No aortic regurgitation is present. Mitral Valve The mitral valve is normal in structure. No evidence of mitral valve stenosis. Trace mitral regurgitation. Tricuspid Valve The tricuspid valve leaflets are thin and pliable. Mild tricuspid regurgitation. RVSP is 20-25 mmHg. Pulmonic Valve The pulmonary valve is normal in structure. Mild pulmonic regurgitation. Great Vessels The aortic root is normal in size. The ascending aorta is normal in size. IVC is normal in size and collapses >50% with inspiration. Pericardium There is no pericardial effusion. Other Information Study Quality: Adequate Conclusion Normal biventricular systolic function. Mild TR, mild DE. Electronically signed by : Marlin Gray MD 05/03/2024 14:27:51
== END 2024-04-29 23:59 | disposition home or self-care (01) ==
LOC: RT 10:17
PROVIDERS: PCP Student in an Organized Health Care Education/Training Program; Visit Provider Physician Assistant
DX: R42 Dizziness and giddiness (principal); R55 Syncope and collapse; R94.31 Abnormal electrocardiogram [ECG] [EKG]
CPT/HCPCS: 93306

== ENCOUNTER 2024-05-06 18:00 | Outpatient (CLI) | payer OTHER, SELFPAY ==
[2024-05-06 19:47] LABS: Basophils % 1.1 % (0.1-2.0); Eosinophils # 0.2 K/mm3 (0.0-0.4); Eosinophils % 4.6 % (0.1-12.0); Hematocrit 42.1 % (37.0-47.0); Hemoglobin 13.2 g/dL (12.2-16.2); Lymphocytes % 30.3 % (10-50); Mean Corpuscular HGB Conc 31.4 g/dL (31.8-35.4); Mean Corpuscular Hemoglobin 31.1 pg (27.0-31.2); Mean Corpuscular Volume 99.1 fl (81-99); Mean Platelet Volume 9.6 fl (7.4-10.4); Monocytes # 0.3 K/mm3 (0.1-1.0); Neutrophils # 1.8 K/mm3 (1.8-7.8); Platelet Count 360 K/mm3 (142-424); Red Blood Count 4.25 M/mm3 (4.20-5.40); Red Cell Distribution Width 12.8 % (11.5-17.5); White Blood Count 3.3 K/mm3 (4.8-10.8)
[2024-05-06 20:22] LABS: Chloride 105 mmol/L (98-107); Hemoglobin A1C 4.8 % (4.0-6.0); Potassium 5.1 mmoL/L (3.5-5.1); Sodium 138 mmol/L (136-145)
[2024-05-06 20:24] LABS: Alanine Aminotransferase 23 U/L (12-78); Aspartate Amino Transferase 30 U/L (14-36); Bilirubin,Total 0.2 mg/dl (0.2-1.3); Blood Urea Nitrogen 11 mg/dl (7-17); Estimated Glomerular Filt Rate 65 ml/min (>60); GFR (African American) 79 ML/MIN (>60)
[2024-05-06 20:25] LABS: Albumin Level 4.1 g/dl (3.5-5.0); Albumin/Globulin Ratio 1.8 (1.1-1.8); Alkaline Phosphatase 83 U/L (38-126); Anion Gap 9.1 mEq/L (5-15); Calcium 9.6 mg/dl (8.4-10.2); Carbon Dioxide 29 mmol/L (22.0-30.0); Chol/HDL Ratio 2.1 (1-3.5); Cholesterol 209 mg/dl (140-200); Globulin 2.3 g/dL (1.3-3.2); Glucose 77 mg/dl (74-100); HDL Cholesterol 101 mg/dl (40-60); Iron 109 ug/dL (37-170); Total Protein,Serum 6.4 g/dl (6.3-8.2); Triglycerides 98 mg/dl (30-150); VLDL Cholesterol 20 mg/dL (0-40)
[2024-05-06 20:36] LABS: Direct LDL Cholesterol 75.28 mg/dL (100-129)
[2024-05-06 20:40] LABS: Total Iron Binding Capacity 276 ug/dL (265-497)
[2024-05-06 20:41] LABS: 25-OH Vitamin D, Total 49.8 ng/mL (30-100)
[2024-05-06 20:55] LABS: Thyroid Stimulating Hormone 1.36 uIU/mL (0.465-4.68)
[2024-05-06 20:59] LABS: Ferritin 196 ng/ml (11.1-264)
== END 2024-05-06 23:59 | disposition home or self-care (01) ==
LOC: LAB.DROPOF 05-07 10:11
PROVIDERS: PCP Student in an Organized Health Care Education/Training Program; Visit Provider Student in an Organized Health Care Education/Training Program
DX: Z13.21 Encounter for screening for nutritional disorder (principal); R42 Dizziness and giddiness; Z68.22 Body mass index [BMI] 22.0-22.9, adult; D64.9 Anemia, unspecified
CPT/HCPCS: 80050; 80053; 80061; 82306; 82728; 83036; 83540; 83550; 84443; 85025

== ENCOUNTER 2024-05-13 19:21 | Outpatient (CLI) | payer OTHER, SELFPAY ==
[2024-05-13 20:48] LABS: Anion Gap 9.9 mEq/L (5-15); Blood Urea Nitrogen 10 mg/dl (7-17); Calcium 9.4 mg/dl (8.4-10.2); Carbon Dioxide 31 mmol/L (22.0-30.0); Chloride 101 mmol/L (98-107); Estimated Glomerular Filt Rate 75 ml/min (>60); GFR (African American) 90 ML/MIN (>60); Glucose 80 mg/dl (74-100); Potassium 4.9 mmoL/L (3.5-5.1); Sodium 137 mmol/L (136-145)
== END 2024-05-13 23:59 | disposition home or self-care (01) ==
LOC: LAB 19:22
PROVIDERS: PCP Student in an Organized Health Care Education/Training Program; Visit Provider Student in an Organized Health Care Education/Training Program
DX: E87.5 Hyperkalemia (principal)
CPT/HCPCS: 80048

== ENCOUNTER → 2024-06-03 09:10 | Day surgery (SDC) | payer OTHER, SELFPAY ==
--- NOTE | 2024-06-03 11:30 | EXP.TILT ---
Findings:: PROCEDURE: Tilt table test REQUESTING PROVIDER: Jarrod Covington PA-C INDICATION: Recurrent, sporadic dizziness and near syncope Beta Blockers: None PRE-TEST ADRIANO SIGNS: BP 103/67, HR 67 and sinus rhythm, O2 sats 100% PROCEDURE SUMMARY: Patient was prepped per protocol with IV started and connected to heart, blood pressure and oxygen saturation monitors. Safety straps were applied. She was then tilted to 70 degrees for a total of 30 minutes. The patient reported lightheadedness and dizziness when initially placed in the upright position, with the symptoms improving within 1 minute of remaining upright. She also reported having some mild dizziness for most of the procedure but stated that it was not nearly as pronounced as it can be at times. She denied reaching the point of near syncope or collapse at any time during the procedure. Her blood pressure dropped from 103/67 supine, to 93/72 immediately after being tilted upright. One minute later, her BP had risen to 100/69. For the remainder of the test, her BP remained stable, ranging from a low of 97/74 to a high of 103/80.
--- NOTE | 2024-06-03 11:52 | EXP.TILT ---
Findings:: PROCEDURE: Tilt table test REQUESTING PROVIDER: Jarrod Covington PA-C INDICATION: Recurrent, sporadic dizziness and near syncope Beta Blockers: None PRE-TEST ADRIANO SIGNS: BP 103/67, HR 67 and sinus rhythm, O2 sats 100% PROCEDURE SUMMARY: Patient was prepped per protocol with IV started and connected to heart, blood pressure and oxygen saturation monitors. Safety straps were applied. She was then tilted to 70 degrees for a total of 30 minutes. The patient reported lightheadedness and dizziness when initially placed in the upright position, with the symptoms improving within 1 minute of remaining upright. She also reported having some mild dizziness for most of the procedure but stated that it was not nearly as pronounced as it can be at times. She denied reaching the point of near syncope or collapse at any time during the procedure. Her blood pressure dropped from 103/67 supine, to 93/72 immediately after being tilted upright. One minute later, her BP had risen to 100/69. For the remainder of the test, her BP remained stable, ranging from a low of 97/74 to a high of 103/80. Her heart rate brina from 67 bpm in the supine position to 82 bpm within 2 minutes of being placed upright. For the remainder of the test her HR ranged from a low of 71 bpm to a high of 82 bpm. She remained in a normal sinus rhythm with a rare PVC during the test. Horizontal ST depression, of unclear significance, was also noted on her rhythm strips. Her O2 sats were 100% throughout the test. CONCLUSIONS: Mildly symptomatic tilt table test without any significant corresponding change in blood pressure or heart rate. Horizontal ST depression, of unclear significance, noted on rhythm strips.
== END ==
LOC: RT 09:11
PROVIDERS: PCP Student in an Organized Health Care Education/Training Program; Visit Provider Physician Assistant
DX: R55 Syncope and collapse (principal)
CPT/HCPCS: 93660

== ENCOUNTER 2024-08-06 08:26 | Outpatient (CLI) | payer OTHER, SELFPAY ==
--- NOTE | 2024-08-06 08:26 | MM_ITS ---
PROCEDURE INFORMATION: Exam: MG Bilateral Screening 3D Mammography Exam date and time: 08/06/2024 8:19 AM Age: 53 years old Clinical indication: Screening examination TECHNIQUE: Imaging protocol: Bilateral Screening tomosynthesis and 2D mammography including computer-aided detection (CAD) when performed. COMPARISON: 1. MG MM DIG SCREENING MAMM BI W/CAD 06/05/2023 7:53 AM 2. MG MM DIG SCREENING MAMM BI W/CAD 08/24/2019 8:48 AM FINDINGS: MAMMOGRAPHY: Breast composition: There are scattered areas of fibroglandular density. Mass: None. Architectural distortion: None. Calcifications: No suspicious calcifications. Asymmetric density: None. Skin thickening: None. Axillary adenopathy: None. IMPRESSION: No mammographic evidence of malignancy. Annual screening is recommended unless otherwise clinically indicated. ASSESSMENT: BI-RADS Category 1: Negative.
--- NOTE | 2024-08-06 08:32 | XR_ITS ---
FINAL REPORT TECHNIQUE: Bone densitometry calculations of the lumbar spine and left hip were obtained. CLINICAL HISTORY: postmenopausal, screening osteoporosis FINDINGS: Using L1-4, the bone mineral density of the spine is 0.937 g/cm2, corresponding to T-score of -1.1. Using the left hip, the bone mineral density of the femoral neck is 0.740 g/cm2, corresponding to a T-score of -1.7. Using the right hip, the bone mineral density of the femoral neck is 0.759 g/cm?, corresponding to a T-score of -1.5. NOTE: T-score: Standard deviation compared with peak bone mass of young adult mean. *Following the recommendations of the International Society of Bone densitometry, classification of hip BMD is based on the lower of two T-scores; total hip or femoral neck. IMPRESSION: Diminished bone mineral density of the lumbar spine and bilateral hips consistent with osteopenia. Reviewed, Interpreted and Dictated by Leonardo Alexander MD Transcribed by Lavonne Sanchez Authenticated and [facility]
== END 2024-08-06 23:59 | disposition home or self-care (01) ==
LOC: RAD 08:26
PROVIDERS: PCP Student in an Organized Health Care Education/Training Program; Visit Provider Student in an Organized Health Care Education/Training Program
DX: Z12.31 Encounter for screening mammogram for malignant neoplasm of breast (principal); Z78.0 Asymptomatic menopausal state; Z13.820 Encounter for screening for osteoporosis
CPT/HCPCS: 77063; 77067; 77080

== ENCOUNTER 2025-02-15 10:15 | Outpatient (CLI) | payer OTHER, SELFPAY ==
[2025-02-15 11:01] LABS: Basophils # 0.1 K/mm3 (0-0.2); Basophils % 0.9 % (0.1-2.0); Eosinophils # 0.2 K/mm3 (0.0-0.4); Eosinophils % 2.6 % (0.1-12.0); Lymphocytes # 1.1 K/mm3 (0.7-4.5); Lymphocytes % 18.5 % (10-50); Mean Corpuscular HGB Conc 32.5 g/dL (31.8-35.4); Mean Corpuscular Hemoglobin 30.2 pg (27.0-31.2); Mean Platelet Volume 9.6 fl (7.4-10.4); Monocytes # 0.4 K/mm3 (0.1-1.0); Monocytes % 7.4 % (1.7-9.3); Neutrophils % 70.4 % (37.0-80.0); Platelet Count 306 K/mm3 (142-424); Red Cell Distribution Width 13.4 % (11.5-17.5); White Blood Count 5.7 K/mm3 (4.8-10.8)
== END 2025-02-15 23:59 | disposition home or self-care (01) ==
LOC: LAB 10:16
PROVIDERS: PCP Nurse Practitioner Family; Visit Provider Internal Medicine Medical Oncology
DX: D72.819 Decreased white blood cell count, unspecified (principal)
CPT/HCPCS: 36415; 85025

== ENCOUNTER 2025-03-31 10:33 | Outpatient (CLI) | payer OTHER, SELFPAY ==
--- NOTE | 2025-03-31 10:35 | XR_ITS ---
FINAL REPORT TECHNIQUE: Chest PA & Lateral CLINICAL HISTORY: SOB,cough COMPARISON: 02/24/2019 FINDINGS: 2 views of the chest were performed. The heart size is normal. The mediastinum is within normal limits. There is new dense airspace opacity of the left lung base consistent with acute pneumonia. There are no pleural effusions. There is no pneumothorax. There are thoracic stimulator leads in the upper and lower thoracic spine. IMPRESSION: Dense airspace opacity left lung base consistent with acute pneumonia. Reviewed, Interpreted and Dictated by Avery Duckworth MD Transcribed by Andra Byrd Authenticated and [facility]
[2025-03-31 10:58] LABS: Coronavirus 19, PCR Not Detected (NotDetected); Human Rhinovirus Not Detected (NotDetected); Influenza A, PCR Not Detected (NotDetected); Influenza B, PCR Not Detected (NotDetected); Respiratory Syncytial Virus Not Detected (NotDetected)
== END 2025-03-31 23:59 | disposition home or self-care (01) ==
LOC: LAB 10:34
PROVIDERS: PCP Nurse Practitioner Family; Visit Provider Physician Assistant
DX: R06.02 Shortness of breath (principal)
CPT/HCPCS: 71046; 87631

== ENCOUNTER 2025-07-29 11:24 | Outpatient (CLI) | payer OTHER, SELFPAY ==
--- NOTE | 2025-07-29 11:26 | XR_ITS ---
FINAL REPORT CLINICAL HISTORY: cough/congestion / shortness of breast FINDINGS: No acute pulmonary density is evident. There is no evidence of effusion or other pleural disease. The mediastinum has a normal appearance. Spinal stimulators are seen within the dorsal upper and lower thoracic spine. Old anterior right 2nd rib fracture is present The cardiac silhouette is unremarkable. IMPRESSION: Unremarkable chest exam. Authenticated and ERN
--- OUTSIDE RECORDS SUMMARY | 2025-07-29 11:26 | XMS_ITS | Clinical Summary ---
Author Organization [facility] Address [address] [place] [address] Care Team Providers Care Maintenance Trainer Name Role Phone Rosalva Zaidi APRN Primary Care Provider [phone] Allergies Active Allergy Reactions Criticality Noted Date Comments Latex Rash Low 04/15/2024 Medications estradiol (ESTRACE) 2 MG tablet Take 1 tablet by mouth Daily. Active multivitamin with minerals tablet tablet Take 1 tablet by mouth Daily. Active levocetirizine (XYZAL) 5 MG tablet Take 1 tablet by mouth Every Evening. Active propranolol (INDERAL) 10 MG tablet Take 1 tablet by mouth 2 (Two) Times a Day. Active cyclobenzaprine (FLEXERIL) 10 MG tablet Take 1 tablet by mouth 3 (Three) Times a Day As Needed for Muscle Spasms. 90 tablet 5 05/13/2025 Active pregabalin (LYRICA) 50 MG capsuleIndicati ons:Fibromyalgi a Take 1 capsule by mouth Every Night. 30 capsule 5 05/13/2025 Active DULoxetine (CYMBALTA) 60 MG capsule Take 1 capsule by mouth Every 12 (Twelve) Hours. 60 capsule 5 05/13/2025 Active Active Problems Problem Noted Date Diagnosed Date Leukopenia 05/07/2024 Assessment & Plan (05/13/2025 9:04 AM EDT): * She has seen hematology for leukopenia. The retread operator felt like this issue was perhaps autoimmune in origin. *She has also been referred to GI to evaluate her liver 1. 01/09/2017 her GRIS was 1:160. All other autoimmune tests done 01/09/2017 were normal. 04/17/2018 her GRIS was again positive but all other autoimmune testing was normal. 03/03/2019 GRIS was 1:80. All other autoimmune testing was normal. 2. In the past she had seen [facility]. They had prescribed her things like MTX, Plaquenil, and Humira. These medications did not completely alleviate her pain. She says MTX may have helped a little. 3. In the time we have known her she has been RF and CCP negative. She does not have psoriasis. 4. Autoimmune disease like RA can certainly cause leukopenia. Orders: CBC Auto Differential Comprehensive Metabolic Panel C-reactive Protein Sedimentation Rate Urine Drug Screen - Urine, Clean Catch Assessment & Plan (11/12/2024 9:17 AM EST): * She recently has been seeing hematology for leukopenia. The retread operator felt like this issue was perhaps autoimmune in origin. *She has also been referred to GI to evaluate her liver 1. 01/09/2017 her GRIS was 1:160. All other autoimmune tests done 01/09/2017 were normal. 04/17/2018 her GRIS was again positive but all other autoimmune testing was normal. 03/03/2019 GRIS was 1:80. All other autoimmune testing was normal. 2. In the past she had seen [facility]. They had prescribed her things like MTX, Plaquenil, and Humira. These medications did not completely alleviate her pain. She says MTX may have helped a little. 3. In the time we have known her she has been RF and CCP negative. She does not have psoriasis. 4. Autoimmune disease like RA can certainly cause leukopenia. 5. Continue IV Rituximab every 6 months Orders: CBC Auto Differential; Future Comprehensive Metabolic Panel; Future C-reactive Protein; Future Sedimentation Rate; Future Urine Drug Screen - Urine, Clean Catch; Future Assessment & Plan (05/07/2024 9:54 AM EDT): * She recently has been seeing hematology for leukopenia. The retread operator felt like this issue was perhaps autoimmune in origin. *She has also been referred to GI to evaluate her liver. Autoimmune disease like RA can certainly cause leukopenia. To treat the leukopenia we have prescribed her rituximab infusions every 6 months. Most recently, her blood counts were stable/normal April 2024 Osteoarthritis 05/07/2024 Assessment & Plan (05/13/2025 9:04 AM EDT): She has tried Tylenol PRN She has taken/tried oral NSAIDS She has taken/tried muscle relaxer's like cyclobenzaprine She has seen pain management specialists She has done some physical therapy She has taken Tramadol PRN She has had a spinal stimulator placed She has had epidural injections She has tried gabapentin for neuropathic pain She has tried Lyrica for neuropathic pain Orders: CBC Auto Differential Comprehensive Metabolic Panel C-reactive Protein Sedimentation Rate Urine Drug Screen - Urine, Clean Catch Assessment & Plan (11/12/2024 9:17 AM EST): She has tried Tylenol PRN She has taken/tried oral NSAIDS She has taken/tried muscle relaxer's like cyclobenzaprine She has seen pain management specialists She has done some physical therapy She has taken Tramadol PRN She has had a spinal stimulator placed She has had epidural injections She has tried gabapentin for neuropathic pain She has tried Lyrica for neuropathic pain Orders: CBC Auto Differential; Future Comprehensive Metabolic Panel; Future C-reactive Protein; Future Sedimentation Rate; Future Urine Drug Screen - Urine, Clean Catch; Future Assessment & Plan (05/07/2024 8:43 AM EDT): * Medications/treatments/interventions tried include: Flexeril, diclofenac, Cymbalta, methocarbamol, She previously saw Dr. Felton (Patient Admitting Clerk [facility]), MTX, Plaquenil, Humira, open finger compression gloves, gabapentin, She has seen a neurologist, she has seen a casting operator helper, Moise, She has seen Dr. Elise (pain management), she had trigger point injections, She has epidural injections, She had a spinal stimulator placed. Tylenol as needed is okay to take as directed. She has taken NSAIDs like Celebrex as needed. She has seen electrostatic paint operator. She has had a spinal stimulator placed. Continue Flexeril and duloxetine as above. For neuropathic pain she has tried gabapentin and Lyrica in the past. She has had epidural injections. 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 autoimmune disease/RA * 1st doses given April 2019 at [facility] * 2nd doses given October 2019 at [facility] * At [facility] she got doses 07/13/20 and 07/31/20 * Doses given 01/30/21 & 02/19/21 * Doses given 08/21/21 & 09/04/21 * Doses given 03/05/22 and 03/19/22 She stopped taking this due to dizziness. Orders: CBC Auto Differential; Future Comprehensive Metabolic Panel; Future C-reactive Protein; Future Sedimentation Rate; Future Urine Drug Screen - Urine, Clean Catch; Future Assessment & Plan (05/07/2024 8:44 AM EDT): QTB and hepatitis panel negative 11/11/2023 Encounter for therapeutic drug monitoring 2023 Assessment & Plan (05/13/2025 9:13 AM EDT): Pregabalin 50 mg PO Q HS for fibromyalgia Pain contract updated 11/12/24 Check DELIA and Drug screen as required. Drug screen ordered today Assessment & Plan (11/12/2024 9:17 AM EST): Pregabalin 50 mg PO Q HS for fibromyalgia Pain contract updated 11/12/24 Check DELIA and Drug screen as required. Drug screen ordered today Orders: Urine Drug Screen - Urine, Clean Catch; Future Assessment & Plan (05/07/2024 9:55 AM EDT): We will trial Lyrica today. If she has improvement with this medication, we will obtain UDS and controlled substance agreement on return to clinic. PDMP reviewed. Constipation in female 05/07/2024 Family history of malignant neoplasm of colon Greater trochanteric bursitis of right hip 05/07 Lung nodules 05/07/2024 Seasonal allergies 05/07/2024 Syncope 05/07/2024 Fibromyalgia 05/04/2024 Assessment & Plan (05/13/2025 9:04 AM EDT): 1. Today she rates her pain as 8/10 in severity 2. Her pain is chronic. 3. 01/09/2017 autoimmune evaluation was normal. 04/17/2018 autoimmune testing was again negative. 03/03/2019 her GRIS was 1:80 all other autoimmune testing was normal. 4. H & P consistent with fibromyalgia. 5. She has taken duloxetine 6. She has tried taking Tramadol PRN 7. Encourage aerobic activity and sleep hygiene. 8. She has tried muscle relaxer's like cyclobenzaprine for muscle pain/spasms. 9. She has taken NSAIDS like Celebrex PRN 10. Follow up with me in 4-6 months. 11. Refill medications today. 12. Continue/refill Lyrica. 13. She has seen pain management and had a spinal stimulator placed. 14. Historically she has tried and failed gabapentin. 15. She has tried and failed physical therapy Orders: pregabalin (LYRICA) 50 MG capsule; Take 1 capsule by mouth Every Night. CBC Auto Differential Comprehensive Metabolic Panel C-reactive Protein Sedimentation Rate Urine Drug Screen - Urine, Clean Catch Assessment & Plan (11/12/2024 9:17 AM EST): * Medications/treatments/interventions tried include: Flexeril, diclofenac, Cymbalta, methocarbamol, She previously saw Dr. Felton (Patient Admitting Clerk [facility]), MTX, Plaquenil, Humira, open finger compression gloves, gabapentin, She has seen a neurologist, she has seen a casting operator helper, Moise, She has seen Dr. Elise (pain management), she had trigger point injections, She has epidural injections, She had a spinal stimulator placed 1. Today she rates her pain as 7/10 in severity 2. Her pain is chronic. 3. 01/09/2017 autoimmune evaluation was normal. 04/17/2018 autoimmune testing was again negative. 03/03/2019 her GRIS was 1:80 all other autoimmune testing was normal. 4. H & P consistent with fibromyalgia. 5. She has taken duloxetine 6. She has tried taking Tramadol PRN 7. Encourage aerobic activity and sleep hygiene. 8. She has tried muscle relaxer's like cyclobenzaprine for muscle pain/spasms. 9. She has taken NSAIDS like Celebrex PRN 10. Follow up with me in 4-6 months. 11. Refill medications today. 12. Continue/refill Lyrica. 13. She has seen pain management and had a spinal stimulator placed. 14. Historically she has tried and failed gabapentin. 15. She has tried and failed physical therapy Orders: CBC Auto Differential; Future Comprehensive Metabolic Panel; Future C-reactive Protein; Future Sedimentation Rate; Future pregabalin (LYRICA) 50 MG capsule; Take 1 capsule by mouth Every Night. Urine Drug Screen - Urine, Clean Catch; Future Assessment & Plan (05/07/2024 9:54 AM EDT): * Medications/treatments/interventions tried include: Flexeril, diclofenac, Cymbalta, methocarbamol, She previously saw Dr. Felton (Patient Admitting Clerk [facility]), MTX, Plaquenil, Humira, open finger compression gloves, gabapentin, She has seen a neurologist, she has seen a casting operator helper, Moise, She has seen Dr. Elise (pain management), she had trigger point injections, She has epidural injections, She had a spinal stimulator placed. Her pain is chronic/constant. H&P is consistent with fibromyalgia. She has tried taking tramadol. Continue duloxetine. She has tried muscle relaxers. Currently she takes cyclobenzaprine as needed. She has tried several NSAIDs as needed. She did not find any relief with gabapentin in the past. She has seen pain management. She has a spinal stimulator. She has tried and failed physical therapy. Encouraged aerobic activity and good sleep hygiene. We will try Lyrica 50 mg nightly. Risks and benefits discussed. 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 I recommend she stop the levothyroxine and we repeat tsh, t4 and t3 after 3 weeks and go from there Resolved Problems Problem Noted Date Diagnosed Date Resolved Date Encounter for medication monitoring 05/07/2024 05/13/2025 Assessment & Plan (05/07/2024 9:54 AM EDT): * IV Rituximab for leukopenia/? autoimmune disease/RA * 1st doses given April 2019 at [facility] *She is now getting these at an outpatient facility Hold Rituxan if patient develops infection. Avoid live vaccines on this medication. No recent serious infections. No infusion reactions. This medication should also be held perioperatively. Positive GRIS (antinuclear antibody) 05/04/2024 05/13/2025 Assessment & Plan (11/12/2024 9:17 AM EST): * 01/09/2017 her GRIS was 1:160 * 03/03/2019 GRIS was 1:80, all other testing was normal 1. All other autoimmune tests done 01/09/2017 were normal. 2. 04/17/2018 her GRIS was again positive but all other autoimmune testing was normal. 3. In the past she had seen [facility]. They had prescribed her things like MTX, Plaquenil, and Humira. These medications did not completely alleviate her pain. She says MTX may have helped a little. 4. In the time we have known her she has been RF and CCP negative. She does not have psoriasis. 5. 03/03/2019 GRIS was 1:80. All other autoimmune testing was normal Orders: CBC Auto Differential; Future Comprehensive Metabolic Panel; Future C-reactive Protein; Future Sedimentation Rate; Future Urine Drug Screen - Urine, Clean Catch; Future Assessment & Plan (05/07/2024 8:39 AM EDT): * 01/09/2017 her GRIS was 1:160 * 03/03/2019 GRIS was 1:80, all other testing was normal. All other autoimmune testing done 12/2016 and again 02/2019 was normal In the past she has seen [facility] rheumatology. They had prescribed her things like methotrexate, Plaquenil, and Humira. These medications did not completely alleviate her pain. She does say the methotrexate may have helped a little. In the time we have known her she has been RF and CCP negative. She does not have a history of psoriasis. Seronegative rheumatoid arthritis 05/04/2024 05/13/2025 Assessment & Plan (05/13/2025 9:04 AM EDT): * 01/09/2017 her GRIS was 1:160 * All other autoimmune tests done 01/09/2017 were normal. * 04/17/2018 her GRIS was again positive but all other autoimmune testing was normal. * In the past she had seen [facility]. They had prescribed her things like MTX, Plaquenil, and Humira. These medications did not completely alleviate her pain. She says MTX may have helped a little. * 03/03/2019 RF and CCP negative, GRIS 1:80 1. She stopped taking Rituximab due to dizziness. 2. She has a lot of pain. Some of her pain is myofascial in origin. Some of her pain is degenerative in origin. See below 3. Refill medications. 4. Check labs. 5. Follow up in 6 months 6. We gave her a handout rheumatoid arthritis to take home and review Orders: CBC Auto Differential Comprehensive Metabolic Panel C-reactive Protein Sedimentation Rate Urine Drug Screen - Urine, Clean Catch Assessment & Plan (11/12/2024 9:17 AM EST): * 01/09/2017 her GRIS was 1:160 * All other autoimmune tests done 01/09/2017 were normal. * 04/17/2018 her GRIS was again positive but all other autoimmune testing was normal. * In the past she had seen [facility]. They had prescribed her things like MTX, Plaquenil, and Humira. These medications did not completely alleviate her pain. She says MTX may have helped a little. * 03/03/2019 RF and CCP negative, GRIS 1:80 1. She stopped taking Rituximab due to dizziness. 2. She has a lot of pain. Some of her pain is myofascial in origin. Some of her pain is degenerative in origin. See below 3. Refill medications. 4. Check labs. 5. Follow up in 6 months 6. We gave her a handout rheumatoid arthritis to take home and review Orders: CBC Auto Differential; Future Comprehensive Metabolic Panel; Future C-reactive Protein; Future Sedimentation Rate; Future Urine Drug Screen - Urine, Clean Catch; Future Assessment & Plan (05/07/2024 9:56 AM EDT): * 01/09/2017 her GRIS was 1:160 * All other autoimmune tests done 01/09/2017 were normal. * 04/17/2018 her GRIS was again positive but all other autoimmune testing was normal. * In the past she had seen [facility]. They had prescribed her things like MTX, Plaquenil, and Humira. These medications did not completely alleviate her pain. She says MTX may have helped a little. * 03/03/2019 RF and CCP negative, GRIS 1:80. Continue IV rituximab every 6 months. She is now getting infusions at an outside facility. She is following with cardiology for dizziness. She reports normal echocardiogram. They would like her to skip her next dose of Rituxan and see if this helps her dizziness. We discussed that I do not think Rituxan is the cause for her dizziness. She has a lot of pain. We believe some of her pain is myofascial in origin. See below. Check labs today. CBC and CMP from primary care provider done earlier this week were stable. Return to clinic 4 to 6 months. We will send Medrol Dosepak today for flare Encounters Date Type Department Care Team Description 05/16/2025 Results Follow-Up [facility] [address] [place] [phone] Cleve Byrd DO 05/13/2025 8:30 AM EDT Office Visit [facility] [address] [phone] Cleve Byrd, Seronegative rheumatoid arthritis (Primary Dx); Leukopenia, unspecified type; Fibromyalgia; Primary osteoarthritis involving multiple joints; Encounter for therapeutic drug monitoring 05/13/2025 Travel from Last 3 Months Immunizations Immunization Administration Dates Next Due COVID-19 (MODERNA) 12YRS+ (SPIKEVAX) 12/05/2020 COVID-19 (MODERNA) 1st,2nd,3rd Dose Monovalent 0 01/07/2021 Influenza, Unspecified 08/16/2019,08/27/2017 Family History Medical History Relation Name Comments Colon cancer Father Hypertension Father Colon cancer Mother Hypertension Mother Relation Name Status Comments Father Alive Mother Alive Social History Tobacco Use Types Packs/Day Years Used Date Smoking Tobacco: Never Passive Smoke Exposure: Past Smokeless Tobacco: Never Tobacco Cessation:Counseling Given: Not Answered Alcohol Use Standard Drinks/Week Comments Never 0 (1 standard drink = 0.6 oz pur e alcohol) Comments Unknown Sex and Gender Information Value Date Recorded Sex Assigned at Female 05/06/2025 1:42 PM EDT Legal Sex Female 10:24 AM EDT Gender Identity Not on file Sexual Orientation Not on file Last Filed Vital Signs Vital Sign Reading Time Taken Comments Blood Pressure 102/70 05/13/2025 8:49 AM EDT Pulse 63 05/13/2025 8:49 AM EDT Temperature 36.3 C (97.3 F) 05/13/2025 8:49 AM EDT Respiratory Rate - - Oxygen Saturation 98% 02/26/2022 8:10 AM EDT Inhaled Oxygen Concentration - - Weight 50 kg (110 lb 3.2 oz) 05/13/2025 8:49 AM EDT Height 154.9 cm (5' 0.98 ) 05/13/2025 8:49 AM ED T Body Mass Index 20.83 05/13/2025 8:49 AM EDT Plan of Treatment Upcoming Encounters Date Type Department Care Team (Late st Contact Info) Description 11/08/2025 8:30 AM EST Office Visit [facility] [address] [phone] Nnamdi Ya APRN [address] [address] Health Maintenance Due Date Last Done Comments Annual Gynecologic Pelvic an d Breast Exam 1970 Pneumococcal Vaccine 50+ (1 of 2 - PCV) 1988 MAMMOGRAM 2009 COLOGUARD 2014 COLON CANCER SCREENING 5 YEA R SIGMOIDOSCOPY 2014 COLONOSCOPY [address]ER SCREENING [address] COLONOGRAPHY 2014 FECAL OCCULT BLOOD TEST 2014 FIT Testing (1 year) 2014 ANNUAL PHYSICAL 02/26/2022 HEPATITIS C SCREENING 02/26/2022 ZOSTER VACCINE (2 of 2) 12/20/2023 10/25/2023, 08/14 COVID-19 Vaccine (8 - Modern a risk season) 2025 09/15/2024, 08/31/2023, 12/07/2021, Additional history exists INFLUENZA VACCINE 08/17/2025 09/15/2024, , 08/23/2022, Additional history exists TDAP/TD VACCINES (2 - Td or Tdap) 08/23/2032 022 Procedures Procedure Name Priority Date/Time Associated Diagnosis Comments CBC AND DIFFERENTIAL Routine 05/13/2025 9:45 AM EDT CONV SPECIMEN STATUS REPORT Routine 05/13/2025 9:45 AM EDT URINE DRUG SCREEN Routine 05/13/2025 9:4 5 AM EDT Seronegative rheumatoid arthritis Leukopenia, unspecified type Fibromyalgia Primary osteoarthritis involving multiple joints SEDIMENTATION RATE Routine 05/13/2025 9: 45 AM EDT Seronegative rheumatoid arthritis Leukopenia, unspecified type Fibromyalgia Primary osteoarthritis involving multiple joints C-REACTIVE PROTEIN Routine 05/13/2025 9: 45 AM EDT Seronegative rheumatoid arthritis Leukopenia, unspecified type Fibromyalgia Primary osteoarthritis involving multiple joints COMPREHENSIVE METABOLIC PANEL Routine 05/13/2025 9:45 AM EDT Seronegative rheumatoid arthritis Leukopenia, unspecified type Fibromyalgia Primary osteoarthritis involving multiple joints from Last 3 Months Results * Specimen Status Report (05/13/2025 9:45 AM EDT) Specimen Status CANCELED [facility] Comment: [facility] was unable to collect sufficient specimen to perform the following test(s), and is providing the patient with re-collection instructions. TEST: [id number] Comp. Metabolic Panel (14) Result canceled by the ancillary. 05/13/2025 9:45 AM EDT 05/13/2025 Narrative [facility] ([facility]) - 05/16/2025 9:07 AM EDT Performed at: 04 - [facility] [address] [place], [place] [id number] Collection Coordinator: Lance Hernandez PhD, Phone: [phone] Patient Fasting: Y Cleve Byrd DO LAB BLOOD ORDERABLES E dited Result - Final [facility] ([facility]) [address] [place] [address], [facility] [address] [place] [address], * Urine Drug Screen - Urine, Clean Catch (05/13/2025 9:45 AM EDT) Pathologist [facility] Amphetamine, Urine Qual Negative Cutoff=10 00 ng/mL [facility] Barbiturates Screen, Urine Negative Cutoff=20 0 ng/mL [facility] Benzodiazepine Screen, Urine Negative Cutoff=20 0 ng/mL [facility] THC Screen, Urine Negative Cutoff=20 ng/mL [facility] Cocaine Screen, Urine Negative Cutoff=30 0 ng/mL [facility] Opiate Screen, Urine Negative Cutoff=30 0 ng/mL [facility] Comment:Opiate test includes Codeine, Morphine, Hydromorphone, Hydrocodone. Oxycodone/Oxymorph one, Urine Negative Cutoff=10 0 ng/mL [facility] Comment:Test includes Oxycod one and Oxymorphone Phencyclidine (PCP), Urine Negative Cutoff=25 ng/mL [facility] Methadone Screen, Urine Negative Cutoff=30 0 ng/mL [facility] Propoxyphene Screen Negative Cutoff=30 0 ng/mL [facility] Creatinine, Urine 267.6 20.0 - 300.0 mg/dL [facility] pH, UA 5.4 4.5 - 8.9 [facility] Please note Comment [facility] Comment: This assay provides a preliminary unconfirmed analytical test result that may be suitable for clinical management of patients in certain situations. Drug-test results should be interpreted in the context of clinical information. Patient metabolic variables, specific drug chemistry, and specimen characteristics can affect test outcome. Technical consultation is available if a test result is inconsistent with an expected outcome. Email: [email or web address] Urine Urine specimen obtained by clean catch procedure / Unknown 05/13/2025 9:45 AM EDT 05/13/[address] [facility] (AMBULATORY) - 05/16/2025 9:07 AM EDT Performed at: [address] [place] [id number] Collection Coordinator: Ama Santamaria PhD, Phone: [phone] Patient Fasting: Y [facility] Marty Tunas DO URINE ORDERABLES Final Result Performing Organization Address [facility] de Phone Number [facility] (AMBULATORY) [address] [place] [address], [facility] [address] [place] [address], * Sedimentation Rate (05/13/2025 9:45 AM EDT) Sed Rate 5 0 - 30 mm/hr [facility] Blood 05/13/2025 9:45 AM EDT 05/13/2025 [facility] (AMBULATORY) - 05/16/2025 9:07 AM EDT Performed at: [address] [place] [id number] Collection Coordinator: Phong Ricketts MD, Phone: [phone] Patient Fasting: Y [facility] Marty Byrd DO LAB BLOOD ORDERABLES F inal Result Performing Organization Address City/[facility]/ZIP Co de Phone Number [facility] [address] [place] [address], [place] [phone] [facility] [address] [place] [address], * (ABNORMAL) CBC & Differential (05/13/2025 9:45 AM EDT) WBC 3.78 3.40 - 10.80 10*3/mm3 [facility] RBC 4.41 3.77 - 5.28 10*6/mm3 [facility] Hemoglobin 13.6 12.0 - 15.9 g/dL [facility] Hematocrit 42.8 34.0 - 46.6 % [facility] MCV 97.1(H) 79.0 - 97.0 fL [facility] MCH 30.8 26.6 - 33.0 pg [facility] MCHC 31.8 31.5 - 35.7 g/dL [facility] RDW 12.3 12.3 - 15.4 % [facility] Platelets 317 140 - 450 10*3/mm3 [facility] Neutrophil Rel % 56.3 42.7 - 76.0 % [facility] Lymphocyte Rel % 30.4 19.6 - 45.3 % [facility] Monocyte Rel % 9.0 5.0 - 12.0 % [facility] Eosinophil Rel % 2.4 0.3 - 6.2 % [facility] Basophil Rel % 1.6(H) 0.0 - 1.5 % [facility] Neutrophils Absolute 2.13 1.70 - 7.00 10*3/mm3 [facility] Lymphocytes Absolute 1.15 0.70 - 3.10 10*3/mm3 [facility] Monocytes Absolute 0.34 0.10 - 0.90 10*3/mm3 [facility] Eosinophils Absolute 0.09 0.00 - 0.40 10*3/mm3 [facility] Basophils Absolute 0.06 0.00 - 0.20 10*3/mm3 [facility] Immature Granulocyte Rel % 0.3 0.0 - 0.5 % [facility] Immature Grans Absolute 0.01 0.00 - 0.05 10*3/mm3 [facility] nRBC 0.0 0.0 - 0.2 /100 WBC [facility] 05/13/2025 9:45 AM EDT 05/13/2025 Narrative [facility]) - 05/16/2025 9:07 AM EDT Performed at: [address] [place] [address] [id number] Collection Coordinator: Phong Ricketts MD, Phone: [phone] Patient Fasting: Y [facility] BLOOD ORDERABLES F inal Result Performing Organization Address City/[facility]/ZIP Co de Phone Number [facility]) [address] [place] [address], [place] [phone] [facility] [address] [place] [address], [place] [phone] * C-reactive Protein (05/13/2025 9:45 AM EDT) [facility] C-Reactive Protein <0.30 0.00 - 0.50 mg/dL [facility] Blood 05/13/2025 9:45 AM EDT 05/13/2025 Narrative [facility]) - 05/16/2025 9:07 AM EDT Performed at: [address] [place] [address] [id number] Collection Coordinator: Phong Ricketts MD, Phone: [phone] Patient Fasting: Y [facility] BLOOD ORDERABLES F inal Result Performing Organization Address City/[facility] Co de Phone Number [facility] [address] [place] [address], [place] [phone] [facility] [address] [place] [address], [place] [phone] * Comprehensive Metabolic Panel (05/13/2025 9:45 AM EDT) [facility] Glucose CANCELED mg/dL [facility] Comment: [facility] was unable to collect sufficient specimen to perform the following test(s), and is providing the patient with re-collection instructions. Result canceled by the ancillary. BUN CANCELED [facility] Comment: Test not performed Result canceled by the ancillary. Creatinine CANCELED [facility] Comment: Test not performed Result canceled by the ancillary. Sodium CANCELED [facility] Comment: Test not performed Result canceled by the ancillary. Potassium CANCELED [facility] Comment: Test not performed Result canceled by the ancillary. Chloride CANCELED [facility] Comment: Test not performed Result canceled by the ancillary. Total CO2 CANCELED [facility] Comment: Test not performed Result canceled by the ancillary. Calcium CANCELED [facility] Comment: Test not performed Result canceled by the ancillary. Total Protein CANCELED [facility] Comment: Test not performed Result canceled by the ancillary. Albumin CANCELED [facility] Comment: Test not performed Result canceled by the ancillary. Total Bilirubin CANCELED [facility] Comment: Test not performed Result canceled by the ancillary. Alkaline Phosphatase CANCELED [facility] Comment: Test not performed Result canceled by the ancillary. AST (SGOT) CANCELED [facility] Comment: Test not performed Result canceled by the ancillary. ALT (SGPT) CANCELED [facility] Comment: Test not performed Result canceled by the ancillary. Blood 05/13/2025 9:45 AM EDT 05/13/2025 Narrative [facility] ([facility]) - 05/16/2025 9:07 AM EDT Performed at: [address] [place] [address] [id number] Collection Coordinator: Pawan Stephen MD, Phone: [phone] Patient Fasting: Y Cleve Byrd DO LAB BLOOD ORDERABLES E dited Result - Final [facility]) [address] [place] [address], [place] [phone] [facility] [address] [place] [address], [place] [phone] from Last 3 Months Insurance [facility] Care Teams Maintenance Trainer Relationship Specialty Start Date End Date Rosalva Zaidi APRN [address] [place] [id number] PCP - General Nurse Practitioner 05/13/25
--- OUTSIDE RECORDS SUMMARY | 2025-07-29 11:26 | XMS_ITS | Clinical Summary ---
Author Organization Healthcare Address [address] [place] [address] Care Team Providers Care Pharmacist Helper Name Role Phone Amador Townsend MD Primary Care Provider + [phone] Family History Medical History Relation Name Comments DELBERT disease Father Hypertension Father Hypertension Mother Relation Name Status Comments Father Mother Social History Tobacco Use Types Packs/Day Years Used Date Smoking Tobacco: Never Alcohol Use Standard Drinks/Week Comments No 0 (1 standard drink = 0.6 oz pur e alcohol) Comments Unknown Sex and Gender Information Value Date Recorded Sex Assigned at Not on file Legal Sex Female 8:44 PM EDT Gender Identity Not on file Sexual Orientation Not on file Last Filed Vital Signs Vital Sign Reading Time Taken Comments Blood Pressure - - Pulse - - Temperature - - Respiratory Rate - - Oxygen Saturation - - Inhaled Oxygen Concentration - - Weight 52.8 kg (116 lb 5 oz) 12/06/2015 2:10 PM EST Height 157.5 cm (5' 2 ) 12/06/2015 2:10 PM EST Body Mass Index 21.27 12/06/2015 2:10 PM EST Plan of Treatment Not on file Care Teams Pharmacist Helper Relationship Specialty Start Date End Date Amador Townsend MD [address] [place] [phone] PCP - General 03/30/21
== END 2025-07-29 23:59 | disposition home or self-care (01) ==
LOC: RAD 11:24
PROVIDERS: PCP Nurse Practitioner Family; Visit Provider Nurse Practitioner
DX: R05.9 Cough, unspecified (principal); R09.89 Other specified symptoms and signs involving the circulatory and respiratory systems; R06.02 Shortness of breath
CPT/HCPCS: 71046

== ENCOUNTER 2025-08-08 13:49 | Outpatient (CLI) | payer OTHER, SELFPAY ==
[2025-08-08 13:20] LABS: Microscopic, Urine URINE MICROSCOPIC (MICROSCOPIC)
[2025-08-08 13:39] LABS: Hematocrit 40.0 % (37.0-47.0); Hemoglobin 13.0 g/dL (12.2-16.2); Immature Granulocytes % 0.2 %; Mean Corpuscular HGB Conc 32.5 g/dL (31.8-35.4); Mean Corpuscular Hemoglobin 30.8 pg (27.0-31.2); Mean Corpuscular Volume 94.8 fl (81-99); Nucleated Red Blood Cells % 0 %; Platelet Count 328 K/mm3 (142-424); Red Blood Count 4.22 M/mm3 (4.20-5.40); Red Cell Distribution Width-SD 45.7 fL; White Blood Count 5.7 K/mm3 (4.8-10.8)
--- OUTSIDE RECORDS SUMMARY | 2025-08-08 13:51 | XMS_ITS | Clinical Summary ---
Author Organization [employer] ([place], [place], [place], [place]) Address [address] [place] [address] Care Team Providers Care Precision Lens Grinder Name Role Phone Unavailable Primary Care Provider Unavailabl e Social History Tobacco Use Types Packs/Day Years Used Date Smoking Tobacco: Never Assessed Comments Unknown Sex and Gender Information Value Date Recorded Sex Assigned at Female 05/14/2022 12:29 PM CDT Legal Sex Female 12:29 PM CDT Gender Identity Female 05/14/2022 12:29 PM CDT Sexual Orientation Not on file Plan of Treatment Not on file
--- OUTSIDE RECORDS SUMMARY | 2025-08-08 13:51 | XMS_ITS | Clinical Summary ---
Author Organization Healthcare Address [address] [place] [address] Care Team Providers Care B2B Outside Sales Representative Name Role Phone Amador Townsend MD Primary Care Provider + [phone] Family History Medical History Relation Name Comments [...] of Treatment Not on file Care Teams B2B Outside Sales Representative Relationship Specialty Start Date End Date Amador Townsend MD [address] [place] [phone] PCP - General 03/30/21
--- OUTSIDE RECORDS SUMMARY | 2025-08-08 13:51 | XMS_ITS | Referral Summary ---
Author Organization [employer] ([place], [place], [place], [place]) Address [address] [place] [address] Care Team Providers Care Cyber Security Specialist Name Role Phone Unavailable Primary Care Provider [...]
--- OUTSIDE RECORDS SUMMARY | 2025-08-08 13:51 | XMS_ITS | Encounter Summary ---
Author Organization [facility] ([place], [place], [place], [place]) Address [address] [place] [address] Care Team Providers Care Air Cargo Specialist Name Role Phone Unavailable Primary Care Provider Unavailabl e Encounter Details Date Type Department Care Team (Late st Contact Info) Description 04/09/2019 Transcribed Document [facility] [place] [address] ProviderBladimir MD [address] [place] [id number] Social History Tobacco Use Types Packs/Day Years Used Date Smoking Tobacco: Never Assessed Comments Unknown Sex and Gender Information Value Date Recorded Sex Assigned at Female 05/14/2022 12:29 PM CDT Legal Sex Female 12:29 PM CDT Gender Identity Female 05/14/2022 12:29 PM CDT Sexual Orientation Not on file documented as of this encounter Miscellaneous Notes * Cerner Conversion Note - Bladimir ProviderMD - 04/09/2019 1:03 PM CDT [place] [id number] LIDIA GIVENS :1970 Visit Time:04/09/2019 Your Visit Summary Your Care Team Admitting Physician - JUSTINA MALLOY MD-GAE Attending Physician - JUSTINA MALLOY MD-GAE Primary Care Physician - LUIS BUCKLEY (REF), MRECY Referring Physician - JUSTINA MALLOY MD-GAE Your Diagnosis Hepatomegaly, not elsewhere classified, Hepatomegaly, not elsewhere classified Discharge Vitals Temperature 36.6 ??C Heart Rate (Monitored) 62 Respiratory Rate 16 Blood Pressure 110/63 What to do next Instructions From Your Care Team Diet after Discharge: Resume usual diet as tolerated Activity after Discharge: rest and relax today, no lifting more than 5-10 lbs for 5-7 days Driving after Discharge: may drive in 24 hours Showering/Bathing: may shower in 24 hours Wound/Incision Care after Discharge: Keep operative site/wound clean and dry, Change dressing with dry dressing daily and as needed, may change dressing in 24 hours, No tub bathing or soaking site in water until scab forms. Follow-Up Appointments Follow Up with Follow up with specialist When Within As needed Medications What How Much When Instructions Next Dose cyclobenzaprine (cyclobenzaprine 10 mg oral tablet) 1 Tablet(s) Oral Three Times A Day as needed for as needed for spasm as needed diclofenac-misoprostol (diclofenac-miSOPROStol 75 mg-200 mcg oral tablet) 1 Tablet(s) Oral Two Times A Day 04/09/19 DULoxetine 60 Milligram(s) Oral Two Times A Day 04/09/19 LORazepam (Ativan 1 mg oral tablet) 1 Tablet(s) Oral Three Times A Day as needed for as needed for anxiety as needed methocarbamol (methocarbamol 500 mg oral tablet) 0.5 Tablet(s) Oral Two Times A Day 04/09/19 multivitamin (Multi Vitamin+) 1 Tablet(s) Oral Every Day 04/10/19 tiZANidine (Zanaflex 4 mg oral capsule) 1 Capsule(s) Oral Three Times A Day as needed for as needed for muscle spasm as needed traMADol (traMADol 50 mg oral tablet) 1 Tablet(s) Oral Every 6 Hours as needed for as needed for pain as needed Take your medications faithfully. Do NOT skip medication. Do NOT stop taking medications without the direction of a physician. Carry a list of your medications with you at all times, and take this medication list with you to your first follow up visit. Report any side effects. Avoid herbal remedies unless discussed with your physician. As part of your treatment plan, your physician may have prescribed a limited course of a controlled substance. This medication may be given to help people with moderate or severe pain or for other medical conditions, but there are risks involved with treatment. Common side effects may include nausea, constipation, drowsiness, sweating, itching, dry mouth, and rash. More serious side effects may include cognitive and motor impairment, like problems with thinking, concentrating, alertness, and movement (e.g. slowed reflexes), and driving and operating heavy machinery can be dangerous. It is important for you to talk to your physician if you have these side effects or questions. These controlled substances can produce physical dependence and be habit-forming if taken for an extended period of time, which means that the body has gotten used to them and may experience withdrawal symptoms if they are abruptly stopped. Withdrawal symptoms can include runny nose, sweating, goose bumps, diarrhea, abdominal cramping, rapid heartbeat, difficulty sleeping, and nervousness. Please dispose of unused and medications per your retail pharmacy guidance. Allergies No Known Medication Allergies Immunizations This Visit No Immunizations Found Education Materials Moderate Conscious Sedation, Adult, Care After These instructions provide you with information about caring for yourself after your procedure. Your health care provider may also give you more specific instructions. Your treatment has been planned according to current medical practices, but problems sometimes occur. Call your health care provider if you have any problems or questions after your procedure. What can I expect after the procedure? After your procedure, it is common: ??? To feel sleepy for several hours. ??? To feel clumsy and have poor balance for several hours. ??? To have poor judgment for several hours. ??? To vomit if you eat too soon. Follow these instructions at home: For at least 24 hours after the procedure: ??? Do not: ? Participate in activities where you could fall or become injured. ? Drive. ? Use heavy machinery. ? Drink alcohol. ? Take sleeping pills or medicines that cause drowsiness. ? Make important decisions or sign legal documents. ? Take care of children on your own. ??? Rest. Eating and drinking ??? Follow the diet recommended by your health care provider. ??? If you vomit: ? Drink water, juice, or soup when you can drink without vomiting. ? Make sure you have little or no nausea before eating solid foods. General instructions ??? Have a responsible adult stay with you until you are awake and alert. ??? Take qvjy-vzk-mmzsjgn and prescription medicines only as told by your health care provider. ??? If you smoke, do not smoke without supervision. ??? Keep all follow-up visits as told by your health care provider. This is important. Contact a health care provider if: ??? You keep feeling nauseous or you keep vomiting. ??? You feel light-headed. ??? You develop a rash. ??? You have a fever. Get help right away if: ??? You have trouble breathing. This information is not intended to replace advice given to you by your health care provider. Make sure you discuss any questions you have with your health care provider. Document Released: 08/24/2014 Document Revised: 04/07/2017 Document Reviewed: 02/22/2017 [employer] Interactive Patient Education ?? 2019 [employer]. Liver Biopsy, Care After These instructions give you information on caring for yourself after your procedure. Your doctor may also give you more specific instructions. Call your doctor if you have any problems or questions after your procedure. Follow these instructions at home: ??? Rest at home for 1???2 days or as told by your doctor. ??? Have someone stay with you for at least 24 hours. ??? Do not do these things in the first 24 hours: ? Drive. ? Use machinery. ? Take care of other people. ? Sign legal documents. ? Take a bath or shower. ??? There are many different ways to close and cover a cut (incision). For example, a cut can be closed with stitches, skin glue, or adhesive strips. Follow your doctor's instructions on: ? Taking care of your cut. ? Changing and removing your bandage (dressing). ? Removing whatever was used to close your cut. ??? Do not drink alcohol in the first week. ??? Do not lift more than 5 pounds or play contact sports for the first 2 weeks. ??? Take medicines only as told by your doctor. For 1 week, do not take medicine that has aspirin in it or medicines like ibuprofen. ??? Get your test results. Contact a doctor if: ??? A cut bleeds and leaves more than just a small spot of blood. ??? A cut is red, puffs up (swells), or hurts more than before. ??? Fluid or something else comes from a cut. ??? A cut smells bad. ??? You have a fever or chills. Get help right away if: ??? You have swelling, bloating, or pain in your belly (abdomen). ??? You get dizzy or faint. ??? You have a rash. ??? You feel sick to your stomach (nauseous) or throw up (vomit). ??? You have trouble breathing, feel short of breath, or feel faint. ??? Your chest hurts. ??? You have problems talking or seeing. ??? You have trouble balancing or moving your arms or legs. This information is not intended to replace advice given to you by your health care provider. Make sure you discuss any questions you have with your health care provider. Document Released: 08/12/2009 Document Revised: 04/10/2017 Document Reviewed: 12/30/2014 [employer] Interactive Patient Education ?? 2019 [employer]. Liver Biopsy The liver is a large organ in the upper right-hand side of your abdomen. A liver biopsy is a procedure in which a tissue sample is taken from the liver and examined under a microscope. The procedure is done to confirm a suspected problem. There are three types of liver biopsies: ??? Percutaneous. In this type, an incision is made in your abdomen. The sample is removed through the incision with a needle. ??? Laparoscopic. In this type, several incisions are made in the abdomen. A tiny camera is passed through one of the incisions to help guide the health care provider. The sample is removed through the other incision or incisions. ??? Transjugular. In this type, an incision is made in the neck. A tube is passed through the incision to the liver. The sample is removed through the tube with a needle. Tell a health care provider about: ??? Any allergies you have. ??? All medicines you are taking, including vitamins, herbs, eye drops, creams, and zcqn-mtl-votrjbc medicines. ??? Any problems you or family members have had with anesthetic medicines. ??? Any blood disorders you have. ??? Any surgeries you have had. ??? Any medical conditions you have. ??? Possibility of , if this applies. What are the risks? Generally, this is a safe procedure. However, problems can occur and include: ??? Bleeding. ??? Infection. ??? Bruising. ??? Collapsed lung. ??? Leak of digestive juices (bile) from the liver or gallbladder. ??? Problems with heart rhythm. ??? Pain at the biopsy site or in the right shoulder. ??? Low blood pressure (hypotension). ??? Injury to nearby organs or tissues. What happens before the procedure? Your health care provider may do some blood or urine tests. These will help your health care provider learn how well your kidneys and liver are working and how well your blood clots. ??? Ask your health care provider if you will be able to go home the day of the procedure. Arrange for someone to take you home and stay with you for at least 24 hours. ??? Do not eat or drink anything after midnight on the night before the procedure or as directed by your health care provider. ??? Ask your health care provider about: ? Changing or stopping your regular medicines. This is especially important if you are taking diabetes medicines or blood thinners. ? Taking medicines such as aspirin and ibuprofen. These medicines can thin your blood. Do not take these medicines before your procedure if your health care provider asks you not to. What happens during the procedure? Regardless of the type of biopsy that will be done, you will have an IV line placed. Through this line, you will receive fluids and medicine to relax you. If you will be having a laparoscopic biopsy, you may also receive medicine through this line to make you sleep during the procedure (general anesthetic). Percutaneous Liver Biopsy ??? You will positioned on your back, with your right hand over your head. ??? A health care provider will locate your liver by tapping and pressing on the right side of your abdomen or with the help of an ultrasound machine or CT scan. ??? An area at the bottom of your last right rib will be numbed. ??? An incision will be made in the numbed area. ??? The biopsy needle will be inserted into the incision. ??? Several samples of liver tissue will be taken with the biopsy needle. You will be asked to hold your breath as each sample is taken. Laparoscopic Liver Biopsy ??? You will be positioned on your back. ??? Several small incisions will be made in your abdomen. ??? Your doctor will pass a tiny camera through one incision. The camera will allow the liver to be viewed on a TV monitor in the operating room. ??? Tools will be passed through the other incision or incisions. These tools will be used to remove samples of liver tissue. Transjugular Liver Biopsy ??? You will be positioned on your back on an X-ray table, with your head turned to your left. ??? An area on your neck just over your jugular vein will be numbed. ??? An incision will be made in the numbed area. ??? A tiny tube will be inserted through the incision. It will be pushed through the jugular vein to a blood vessel in the liver called the hepatic vein. ??? Dye will be inserted through the tube, and X-rays will be taken. The dye will make the blood vessels in the liver light up on the X-rays. ??? The biopsy needle will be pushed through the tube until it reaches the liver. ??? Samples of liver tissue will be taken with the biopsy needle. ??? The needle and the tube will be removed. After the samples are obtained, the incision or incisions will be closed. What happens after the procedure? You will be taken to a recovery area. ??? You may have to lie on your right side for 1???2 hours. This will prevent bleeding from the biopsy site. ??? Your progress will be watched. Your blood pressure, pulse, and the biopsy site will be checked often. ??? You may have some pain or feel sick. If this happens, tell your health care provider. ??? As you begin to feel better, you will be offered ice and beverages. ??? You may be allowed to go home when the medicines have worn off and you can walk, drink, eat, and use the bathroom. This information is not intended to replace advice given to you by your health care provider. Make sure you discuss any questions you have with your health care provider. Document Released: 01/23/2005 Document Revised: 04/07/2017 Document Reviewed: 12/30/2014 [employer] Interactive Patient Education ?? 2019 [employer] Emergency Awareness and Preventative Care STROKE is an EMERGENCY Every Minute Counts Act FAST and Check for these signs: FACE Does the face look uneven? ARM Does one arm drift down? SPEECH Does their speech sound strange? TIME Call at any sign of stroke Stroke Risk Factors Atrial Fibrillation (irregular heartbeat) Diabetes Family history of stroke Heart Disease Heavy alcohol use High Blood Pressure High Cholesterol Physical inactivity and obesity Smoking Cigarette Smoking The facts are clear, cigarette smoking will shorten your life. Smoking can cause many illnesses along the way. As a healthcare provider, we recommend that you stop smoking. Assistance with quitting is available by contacting 0-209-JZQV-NOW. This is a free resource providing counseling, support, and referral. Or you may contact your personal physician. [place] Suicide Prevention Lifeline: The National Suicide Prevention Lifeline is a national network of local crisis centers that provides free and confidential emotional support to people in suicidal crisis or emotional distress 24 hours a day, 7 days a week. Don't Wait! Stop a Heart Attack Before it Starts What is a heart attack? A heart attack is damage or to a part of the heart from severely decreased or lack of blood flow to the heart. Over time, arteries can become narrow from the buildup of fat and cholesterol, which is called plaque. The plaque can rupture causing a blood clot to form. When the blood clot forms, the artery can become severely narrowed or completely blocked, causing a heart attack. Heart attack is the leading cause of in the [place]. 85% of muscle damage occurs within the first 2 hours. Delay in the recognition of heart attack symptoms increases the chances of . Know the early symptoms of a heart attack: Nausea Feeling of fullness in chest Jaw Pain Pain that travels down one or both arms Fatigue/being tired Anxiety Back Pain Chest pressure, squeezing, or discomfort Shortness of breath Sweating, or a cold sweat Feeling of impending doom There are unusual signs of a heart attack, too! Women, the elderly, and diabetics may present with atypical symptoms: Fainting/dizziness Weakness Confusion Risk Factors for a Heart Attack Some heart disease risk factors, such as age and family history, cannot be changed. Others, like smoking and lack of exercise, can be changed. Smoking High Cholesterol High Blood Pressure Family History Obesity Age Gender (Males are at higher risk) Lack of Exercise Diabetes Diet Stress Excessive Alcohol Intake If you or someone you know is experiencing the signs and symptoms of a heart attack, DON???T DELAY. Call immediately and seek help. If someone collapses, perform CPR! Do not attempt to drive if you are having symptoms of heart attack. Hands-Only CPR Why Hands-Only CPR? Hands-Only CPR has been shown to be as effective as conventional CPR for cardiac arrests that occur outside of a hospital. Survival depends on immediately receiving CPR from someone nearby. How do you perform Hands-Only CPR? There are two easy steps: Call 07-18-1 if you see a teen or adult collapse Push hard and fast in the center of the chest at a beat of 100 beats per minute. Save a life! 4 WAYS TO GET AHEAD OF SEPSIS SEPSIS is a MEDICAL EMERGENCY. Time matters! Infections put you and your family at risk for a life-threatening condition called sepsis. Sepsis is the body's extreme response to an infection. It is life-threatening, and without timely treatment, sepsis can rapidly lead to tissue damage, organ failure, and . Sepsis happens when an infection you already have-in your skin, lungs, urinary tract or somewhere else-triggers a chain reaction throughout your body. 1 PREVENT INFECTIONS Take good care of chronic conditions. Talk to your doctor about getting the recommended vaccines. 2 PRACTICE GOOD HYGIENE Wash your hands frequently. Keep cuts or open sores clean and covered until they are healed. 3 KNOW THE SYMPTOMS Confusion or disorientation Shortness of breath High heart rate Fever, shivering, or feeling very cold Extreme pain or discomfort Clammy or sweaty skin 4 ACT FAST Get medical care IMMEDIATELY if you suspect sepsis or if you have an infection that is not getting better or is getting worse. To learn more about sepsis and how to prevent infections, visit www.cdc.gov/sepsis. Patient Portal Reminder: Be sure to sign up for the [facility] patient portal, which gives you 09/06 access to your medical information ??? including these discharge instructions ??? using your computer, smartphone, or tablet. Just go to [employer] to get started. Questions? Call . Test Results Laboratory or Other Results This Visit (last charted value for your 04/09/2019 visit) Hematology 04/09/19 09:21:00 WBC: 6.0 K/uL -- Normal range between ( 3.9 and 10.0 ) RBC: 3.70 Million/uL -- Normal range between ( 3.93 and 5.22 ) Hct: 35.8 % -- Normal range between ( 34.1 and 44.9 ) Hgb: 11.7 Gram/dL -- Normal range between ( 11.2 and 15.7 ) Platelet Count: 308 K/uL -- Normal range between ( 163 and 369 ) MCH: 31.6 pg -- Normal range between ( 25.6 and 32.2 ) MCHC: 32.7 Gram/dL -- Normal range between ( 32.3 and 36.5 ) MCV: 96.8 fL -- Normal range between ( 79.0 and 94.8 ) Slide Review: No Eos %: 1.8 % -- Normal range between ( 1.0 and 7.0 ) Kerr #: 0.51 K/uL -- Normal range between ( 0.24 and 0.82 ) Eos #: 0.11 K/uL -- Normal range between ( 0.04 and 0.54 ) Kerr %: 8.6 % -- Normal range between ( 4.7 and 12.5 ) Baso %: 0.7 % -- Normal range between ( 0.0 and 1.0 ) Baso #: 0.04 K/uL -- Normal range between ( 0.01 and 0.08 ) RDW: 13.4 % -- Normal range between ( 11.6 and 14.4 ) Neut %: 63.0 % -- Normal range between ( 34.0 and 71.0 ) Neut #: 3.76 K/uL -- Normal range between ( 1.56 and 6.13 ) Lymph %: 25.7 % -- Normal range between ( 19.3 and 53.0 ) Lymph #: 1.53 K/uL -- Normal range between ( 1.18 and 3.74 ) MPV: 9.4 fL -- Normal range between ( 9.4 and 12.4 ) IG#: 0 x10(3)/uL IG%: 0 % -- Normal range between ( 0 and 1 ) Coagulation 04/09/19 09:21:00 INR: 0.9 -- Normal range between ( 0.9 and 1.1 ) PT: 9.2 Second(s) -- Normal range between ( 9.6 and 11.5 ) Patient Name:LIDIA GIVENS I have received and understand this information and was given the opportunity to ask questions. Patient/Dietary Services Manager Name: Patient/Dietary Services Manager Signature: Relationship to Patient: Clinician/Hospital Dietary Services Manager Signature: Date: documented in this encounter Plan of Treatment Not on file documented as of this encounter Visit Diagnoses Not on filedocumented in this encounter
--- OUTSIDE RECORDS SUMMARY | 2025-08-08 13:51 | XMS_ITS | Encounter Summary ---
Author Organization [employer] ([place], [place], [place], [place]) Address [address] [place] [address] Care Team Providers Care Surg Rn Name Role Phone Unavailable Primary Care Provider Unavailabl e Encounter Details Date Type Department Care Team (Late st Contact Info) Description 04/09/2019 Transcribed Document [facility] [place] [facility] [place] [address] ProviderBladimir MD [address] [place], [place] [id number] Social History Tobacco Use Types Packs/Day Years Used Date Smoking Tobacco: Never Assessed Comments Unknown Sex and Gender Information Value Date Recorded Sex Assigned at Female 05/14/2022 12:29 PM CDT Legal Sex Female 12:29 PM CDT Gender Identity Female 05/14/2022 12:29 PM CDT Sexual Orientation Not on file documented as of this encounter Miscellaneous Notes * Cerner Conversion Note - lBadimir ProviderMD - 04/09/2019 9:22 AM CDT PAT / Pre Procedure Adult Entered On: 04/09/2019 9:29 EDT Performed On: 04/09/2019 9:22 EDT by ROYCE MARSH RN General Info Arrived From : Home Mode of Arrival on Unit : Ambulatory Patient Arrival Date/Time : 04/09/2019 9:16 EDT Legal Guardian : Mother Legal Guardian : No Legal Record of Guardianship Obtained : No Support Person/Patient Outreach Specialist : Yes Support Person/Pt Rep Name : Froy Rincon spouse/Ifeoma cunningham/ mother Support Person/Pt Rep Contact Information : [phone]// [phone] Want Family/Rep/Phys Notified of Admit : No Emergency Contact #1 : Ifeoma Cunningham Emergency Contact #1 Emergency Contact #1 Relationship : mother Emergency Contact #2 : // Emergency Contact #2 Phone Number : // Emergency Contact #2 Relationship : // Chief Complaint : liver mass Information Obtained From : Patient Primary Language : Arabic Communication Barrier : None Objects to Sharing Info w Family : No Currently Lactating : No Status : Hysterectomy ROYCE MARSH RN - 04/09/2019 9:22 EDT Height and Weight, Clinical Dosing Height Source : Chart Height Entry Format : Lemur IMS Height, Feet : 5 ft(Converted to: 152 cm, 60 Inch) Height, Inches : 2 Inch(Converted to: 0 ft 2 Inch, 5.08 cm) Clinical Height : 157.48 cm Weight Source : Standing scale Weight Entry Format : Caribou Clinical Dosing Weight : 56.82 kg Weight, Pounds : 125 lb Body Surface Area (BSA) : 1.57 m2 Body Mass Index : 22.9 kg/m2 Republic Body Weight : 50 kg ROYCE MARSH RN - 04/09/2019 9:22 EDT Health Histories Smoking Status : Never (less than 100 in lifetime; none in last 30 days) Smokeless Tobacco Status : Never ROYCE MARSH RN - 04/09/2019 9:22 EDT Social History (As Of: 04/09/2019 09:29:45 EDT) Tobacco: Never (less than 100 in lifetime) Smoking Status. (Last Updated: 04/09/2019 09:25:35 EDT by ROYCE MARSH RN) Alcohol: Alcohol Use History No. (Last Updated: 04/09/2019 09:25:39 EDT by ROYCE MARSH RN) Substance Abuse: Drug Use Hx: No. (Last Updated: 04/09/2019 09:25:42 EDT by ROYCE MARSH RN) Anesthesia/Transfusion History Family History of Anesthesia Reaction : No prior transfusion(s) Blood Transfusion Acceptable to Patient : Yes Transfusion History : Prior anesthesia without reaction Family History of Anesthesia Reaction : None ROYCE MARSH RN - 04/09/2019 9:22 EDT Infectious Disease History Infectious Disease History : Chicken pox/Shingles Isolation Needed : Standard Fever/Chills Last 48 Hours : No Travel To Regions with Travel Advisories : No Travel Outside [place] Within Last 30 Days : No Contact With Traveler to [facility] Region : No Exposure to Contagious Illness : No Tuberculosis Symptoms : None ROYCE MARSH RN - 04/09/2019 9:22 EDT Advance Directive Patient has Advance Directive *Q : Yes, Advance Directive not with the patient Advance Directive Type : Living will Copy Advance Directive Verified/on Chart : No ROYCE MARSH RN - 04/09/2019 9:22 EDT Teaching/Learning Assessment Barriers To Learning : None evident Individuals Taught : Patient, Parent Readiness to Learn : Explanation, Printed materials Learning Style Preferences Patient : Printed materials, Verbal explanation Learning Style Preferences Family : Printed materials, Verbal explanation ROYCE MARSH RN - 04/09/2019 9:22 EDT Vital Measurements Temperature Source : Temporal artery scanning Temperature Mode : Fahrenheit Temperature, Fahrenheit : 97.9 Deg F Clinical Temperature, C : 36.6 Deg C Pulse Method : Non-Invasive BP Device Pulse Source : Brachial, Right Peripheral Pulse Rate : 59 bpm (LOW) Respiratory Rate : 16 Breaths/Min Blood Pressure Location : Arm, right upper Blood Pressure Source : Non-Invasive BP Device Blood Pressure Position : Supine Systolic Blood Pressure : 113 mmHg Diastolic Blood Pressure : 58 mmHg (LOW) Oxygen Saturation : 96 % Oxygen Therapy Mode : Room air ROYCE MARSH RN - 04/09/2019 9:22 EDT Oxygen Therapy Oxygen Therapy Mode : Room air ROYCE MARSH RN - 04/09/2019 9:22 EDT Sleep Apnea Risk Assmt Hx of Obstructive Sleep Apnea Diagnosis : No Snore Loudly : No Tired, Fatigued, or Sleepy During Day : No Observed Stopping Breathing During Sleep : No Have/Are Being Treated for Hypertension : No BMI Greater Than 35 kg/m2 : No Age over 50 Years Old : No Neck Circumference Greater Than 40 cm : No Gender Male : No STOP-BANG Sleep Apnea Risk Level Score : 0 ROYCE MARSH RN - 04/09/2019 9:22 EDT Julio Scale Julio Sensory Perception : No impairment Julio Moisture : Rarely moist Julio Activity : Walks frequently Julio Mobility : No limitation Julio Nutrition : Adequate Julio Friction and Shear : No apparent problem Julio Score : 22 ROYCE MARSH RN - 04/09/2019 9:22 EDT Psychosocial History Do You Have a History of the Following? : Anxiety Currently in Unsafe Situation : No Tried to Harm Yourself in the Past? : No Thoughts of Harming/Killing Yourself : No ROYCE MARSH RN - 04/09/2019 9:22 EDT Fall Risk Scales ABCs Fall Injury Risk Identification : None MARS Hx Falls Immediate/Within 3 Months : No Mars Secondary Diagnosis : Yes MARS Use of Ambulatory Aid : None MARS IV Therapy or IV Access : Yes Mars Gait/Transferring : Normal, bedrest, immobile Mars Mental Status : Oriented to own ability MARS Fall Scale Risk Level : 25-45 Medium Risk Solon Fall Interventions : Adequate lighting, Assistive devices within reach, Bed in low position, Call device within reach, Hourly comfort/safety rounds Fall Moderate to High Risk Interventions : Patient room close to nurses station Fall Risk Scale Calc Temp : 0 ROYCE MARSH RN - 04/09/2019 9:22 EDT Pain Assessment Pain Assessment : Initial assessment Pain Scale Used : 0-10 Scale Location : Other: joints ROYCE MARSH RN - 04/09/2019 9:22 EDT Pain Scale Intensity : 5 ROYCE MARSH RN - 04/09/2019 9:22 EDT Image 4 - Images currently included in the form version of this document have not been included in the text rendition version of the form. Functional Assessment Living Situation : Home Patient Lives With : Spouse Persons Assisting Patient at Home : Spouse Current Daily Living Assistance : None Sensory Deficits : None Mobility Assistance Prior to Admission : Independent Current Home Treatments : None ROYCE MARSH RN - 04/09/2019 9:22 EDT Influenza Vaccine Asmt, Adult Previous Vaccines from Immunization Schedule : No qualifying data available. Influenza Immunization, Current Season : Outside of influenza season ROYCE MARSH RN - 04/09/2019 9:22 EDT Pneumococcal Vaccine Previous Vaccines from Immunization Schedule : No qualifying data available. Pneumonia Immunization Received : No Pneumococcal Risk Assessment < Age 65 : ROYCE Skinner RN - 04/09/2019 9:22 EDT Anticipated Discharge Needs Discharge To, Anticipated : Home Anticipated Discharge Needs at This Time : ROYCE Skinner RN - 04/09/2019 9:22 EDT Valuables and Belongings Valuables and Belongings : Clothing Clothing : Common streetwear Clothing Disposition : With patient ROYCE MARSH RN - 04/09/2019 9:22 EDT documented in this encounter Plan of Treatment Not on file documented as of this encounter Visit Diagnoses Not on filedocumented in this encounter
--- OUTSIDE RECORDS SUMMARY | 2025-08-08 13:51 | XMS_ITS | Clinical Summary ---
Author Organization [facility] Address [address] [place] [address] Care Team Providers Care Millinery Designer Name Role Phone Rosalva Zaidi APRN Primary Care Provider [phone] Allergies Active Allergy Reactions Criticality Noted Date [...] She has seen hematology for leukopenia. The plate and weld inspector felt like this issue was perhaps autoimmune [...] 2. In the past she had seen [facility] Rheumatology. They had prescribed her [...] has been seeing hematology for leukopenia. The plate and weld inspector felt like this issue was perhaps autoimmune [...] 2. In the past she had seen [facility] Rheumatology. They had prescribed her [...] has been seeing hematology for leukopenia. The plate and weld inspector felt like this issue was perhaps autoimmune [...] diclofenac, Cymbalta, methocarbamol, She previously saw Dr. Feltno (Agency Appointments Supervisor [facility]), MTX, Plaquenil, Humira, open finger compression gloves, gabapentin, She has seen a neurologist, she has seen a magnet valve assembler, Moise, She has seen Dr. Elise (pain management), she had trigger point injections, She has epidural injections, She had a spinal stimulator placed. Tylenol as needed is okay to take as directed. She has taken NSAIDs like Celebrex as needed. She has seen painter barrel. She has had a spinal stimulator placed. [...] * 1st doses given April 2019 at [facility] * 2nd doses given October 2019 at [facility] * At [facility] she got doses 07/13/20 [...] Cymbalta, methocarbamol, She previously saw Dr. Felton (Agency Appointments Supervisor [facility]), MTX, Plaquenil, Humira, open finger compression gloves, gabapentin, She has seen a neurologist, she has seen a magnet valve assembler, Moise, She has seen Dr. Elise (pain [...] Cymbalta, methocarbamol, She previously saw Dr. Felton (Agency Appointments Supervisor [facility]), MTX, Plaquenil, Humira, open finger compression gloves, gabapentin, She has seen a neurologist, she has seen a magnet valve assembler, Moise, She has seen Dr. Elise (pain [...] * 1st doses given April 2019 at [facility] *She is now getting [...] 3. In the past she had seen [facility] Rheumatology. They had prescribed her [...] normal In the past she has seen [facility] rheumatology. They had prescribed her things like [...] * In the past she had seen [facility] Rheumatology. They had prescribed her [...] * In the past she had seen [facility] Rheumatology. They had prescribed her [...] * In the past she had seen [facility] Rheumatology. They had prescribed her [...] Department Care Team Description 05/16/2025 Results Follow-Up [facility] RHEUMATOLOGY [address] [place] [phone] Cleve Byrd DO 05/13/2025 8:30 AM EDT Office Visit [facility] RHEUMATOLOGY [address] [phone] Cleve Byrd, Seronegative rheumatoid arthritis (Primary Dx); [...] Description 11/08/2025 8:30 AM EST Office Visit [facility] RHEUMATOLOG[facility] [address] [phone] Nnamdi Ya APRN [address] [address] Health Maintenance Due Date Last Done Comments [...] VACCINE (2 of 2) 12/20/2023 10/25/2023, 08/14 INFLUENZA VACCINE 06/17/2025 09/15/2024, , 08/23/2022, Additional history exists TDAP/TD [...] (05/13/2025 9:45 AM EDT) Specimen Status CANCELED [facility] Comment: [facility] unable to collect sufficient specimen to perform the following test(s), and is providing the patient with re-collection instructions. TEST: [id number] Comp. Metabolic Panel (14) Result canceled by the ancillary. 05/13/2025 9:45 AM EDT 05/13/2025 Narrative [facility] (AMBULATORY) - 05/16/2025 9:07 AM EDT Performed at: [id number] [place], [place] [id number] Shake Sawyer: Lance Hernandez PhD, Phone: [phone] Patient Fasting: Y Cleve Byrd DO LAB BLOOD ORDERABLES E dited Result - Final [facility] (AMBULATORY) [address] [place] [address], [facility] [address] [place] [address], * Urine Drug Screen - Urine, Clean Catch (05/13/2025 9:45 AM EDT) Pathologist [facility] [place] Amphetamine, Urine Qual Negative Cutoff=10 00 ng/mL [...] is inconsistent with an expected outcome. Email: [email or web address] Urine Urine specimen obtained by clean catch procedure / Unknown 05/13/2025 9:45 AM EDT 05/13/2025 Narrative [facility] (AMBULATORY) - 05/16/2025 9:07 AM EDT Performed at: [address] [place] [address] [address] [facility], [place], [place] [id number] Shake Sawyer: Ama Santamaria PhD, Phone: [phone] Patient Fasting: Y [facility] URINE ORDERABLES Final Result Performing Organization Address City/[facility]/ZIP Co de Phone Number [facility] [address] [place] [address], [facility] [address] [place] [address], * Sedimentation Rate (05/13/2025 9:45 AM EDT) Pathologist [facility] [place] Sed Rate 5 0 - 30 mm/hr [facility] Blood 05/13/2025 9:45 AM EDT 05/13/2025 Narrative [facility] (AMBULATORY) - 05/16/2025 9:07 AM EDT Performed at: [address] [place] [id number] Shake Sawyer: Phong Ricketts MD, Phone: [phone] Patient Fasting: Y [facility] LAB BLOOD ORDERABLES F inal Result Performing Organization Address City/[facility]/ZIP Co de Phone Number [facility] (AMBULATORY) [address] [place] [address], [place] [phone] [facility] [address] [place] [address], * (ABNORMAL) CBC & Differential (05/13/2025 9:45 AM EDT) Pathologist [facility] [place] WBC 3.78 3.40 - 10.80 10*3/mm3 [facility] [...] - 05/16/2025 9:07 AM EDT Performed at: [address] [id number] Shake Sawyer: Phong Ricketts MD, Phone: [phone] Patient Fasting: Y Cleve Byrd DO LAB BLOOD ORDERABLES F inal Result [facility] (AMBULATORY) [address] [id number], [facility] [address] [place] [address], * C-reactive Protein (05/13/2025 9:45 AM EDT) Pathologist [facility] [place] C-Reactive Protein <0.30 0.00 - 0.50 mg/dL [facility] Blood 05/13/2025 9:45 AM EDT 05/13/2025 Narrative [facility] (AMBULATORY) - 05/16/2025 9:07 AM EDT Performed at: [address] [place] [id number] Shake Sawyer: Phong Ricketts MD, Phone: [phone] Patient Fasting: Y Cleve Byrd LAB BLOOD ORDERABLES F inal Result Performing Organization Address [facility] Co de Phone Number [facility] (AMBULATORY) [address] [place] [address], [facility] [address] [place] [address], * Comprehensive Metabolic Panel (05/13/2025 9:45 AM EDT) Pathologist [facility] [place] Glucose CANCELED mg/dL [facility] Comment: [facility] [...] - 05/16/2025 9:07 AM EDT Performed at: [address] [place] [id number] Shake Sawyer: Pawan Stephen MD, Phone: [phone] Patient Fasting: Y us Cleve Byrd DO LAB BLOOD ORDERABLES E dited Result - Final [facility] ([facility]) [address] [place] [id number], [place] [phone] [facility] [address] [id number], [place] [phone] from Last 3 Months [facility] [place] Care Teams Millinery Designer Relationship Specialty Start Date End Date Rosalva Zaidi APRN [address] [place] [address] PCP - General Nurse Practitioner 05/13/25
--- OUTSIDE RECORDS SUMMARY | 2025-08-08 13:51 | XMS_ITS | Encounter Summary ---
Author Organization [employer] ([place], [place], [place], [place]) Address [address] [place] [address] Care Team Providers Care Special Forces Warrant Officer Name Role Phone Unavailable Primary Care Provider Unavailabl e Encounter Details Date Type Department Care Team (Late st Contact Info) Description 04/09/2019 Transcribed Document [facility] [place] [facility] [place] [address] ProviderBladimir MD [address] [place] [address] Social History Tobacco Use Types Packs/Day [...] Conversion Note - Bladimir ProviderMD - 04/09/2019 12:29 PM CDT [place] [id number] LIDIA GIVENS :1970 Visit Time:04/09/2019 Your Visit Summary Your Care Team Admitting Physician - JUSTINA MALLOY MD-GAE Attending Physician - JUSTINA MALLOY MD-GAE Primary Care Physician - LUIS BUCKLEY (REF), [facility] Referring Physician - JUSTINA MALLOY MD-GAE Your [...] What How Much When Instructions Next Dose conjugated estrogens (Premarin 0.9 mg oral tablet) 2 Tablet(s) Oral Every Day 03/2519 cyclobenzaprine (cyclobenzaprine 10 mg oral tablet) 1 [...] This Visit No Immunizations Found Education Materials Myelogram, Care After Refer to this sheet in the next few weeks. These instructions provide you with information about caring for yourself after your procedure. Your health care provider may also give you more specific instructions. Your treatment has been planned according to current medical practices, but problems sometimes occur. Call your health care provider if you have any problems or questions after your procedure. What can I expect after the procedure? After the procedure, it is common to have: ??? Soreness at your injection site. ??? A mild headache. Follow these instructions at home: ??? Drink enough fluid to keep your urine clear or pale yellow. This will help flush out the dye (contrast material) from your spine. ??? Rest as told by your health care provider. Lie flat with your head slightly raised (elevated) to reduce the risk of headache. ??? Do not bend, lift, or do any strenuous activity for 24???48 hours or as told by your health care provider. ??? Take jnit-cwq-znfjoql and prescription medicines only as told by your health care provider. ??? Take care of and remove your bandage (dressing) as told by your health care provider. ??? Bathe or shower as told by your health care provider. Contact a health care provider if: ??? You have a fever. ??? You have a headache that lasts longer than 24 hours. ??? You feel nauseous or vomit. ??? You have a stiff neck or numbness in your legs. ??? You are unable to urinate or have a bowel movement. ??? You develop a rash, itching, or sneezing. Get help right away if: ??? You have new symptoms or your symptoms get worse. ??? You have a seizure. ??? You have trouble breathing. This information is not intended to replace advice given to you by your health care provider. Make sure you discuss any questions you have with your health care provider. Document Released: 11/29/2016 Document Revised: 04/10/2017 Document Reviewed: 08/15/2016 [employer] Interactive Patient Education ?? 2019 [employer] Myelogram A myelogram is an imaging study of your spinal cord and the places where nerves attach to your spinal cord (nerve roots). A dye (contrast material) is injected into your spine before the x-ray to provide a clearer image for your health care provider to see. You may need this study done if you have a spinal cord problem that cannot be diagnosed with other imaging studies, such as CT scan or MRI. You may also have this study to check your spine after surgery. Tell a health care provider about: ??? Any allergies you have, especially to iodine. ??? All medicines you are taking, including vitamins, herbs, eye drops, creams, and rehu-aqe-vwaxeru medicines. ??? Previous problems you or members of your family have had with the use of anesthetics or contrast media. ??? Any blood disorders you have. ??? Any surgeries you have had. ??? Any medical conditions you have, including asthma. ??? Whether you are or may be . What are the risks? Generally, this is a safe procedure. However, problems may occur, including: ??? Infection. ??? Bleeding. ??? Allergic reaction to the contrast material. ??? Damage to your spinal cord or nerve roots. ??? Loss or leaking of spinal fluid. This can lead to a headache. ??? Seizures. This is rare. What happens before the procedure? Follow instructions from your health care provider about eating or drinking restrictions. You may be asked to drink more fluids. ??? Ask your health care provider about changing or stopping your regular medicines. This is especially important if you are taking diabetes medicines or blood thinners. ??? Plan to have someone take you home after the procedure. ??? If you will be going home right after the procedure, plan to have someone with you for 24 hours. What happens during the procedure? You will lie face down on a table. ??? Your health care provider will locate the best injection site on your spine. This is most often in the lower back. ??? The area of injection will be washed with soap. ??? You will be given a medicine to numb the area (local anesthetic). ??? Your health care provider will insert a long needle into the space around your spinal cord (subarachnoid space). ??? A sample of spinal fluid may be taken and sent to the laboratory for testing. ??? The contrast material will be injected into the subarachnoid space. ??? The exam table may be tilted to help the contrast material flow up or down your spine. ??? The x-ray will take images of your spinal cord for your health care provider to examine. ??? A bandage (dressing) may be placed over the injection site. The procedure may vary among health care providers and hospitals. What happens after the procedure? Your blood pressure, heart rate, breathing rate, and blood oxygen level may be monitored often until the medicines you were given have worn off. ??? Lie flat with your head raised (elevated). This reduces the risk of headache. ??? It is your responsibility to get the results of your procedure. Ask your health care provider or the department performing the procedure when your results will be ready. This information is not intended to replace advice given to you by your health care provider. Make sure you discuss any questions you have with your health care provider. Document Released: 06/26/2005 Document Revised: 03/18/2017 Document Reviewed: 08/15/2016 Elsevier Interactive Patient Education ?? 2019 [employer] Inc. Emergency Awareness and Preventative Care STROKE [...] Assistance with quitting is available by contacting 9-013-FCQCNOW. This is a free resource providing counseling, support, and referral. Or you may contact your personal physician. [facility] Suicide Prevention [facility]: The National Suicide Prevention Lifeline is a [...] CPR? There are two easy steps: Call 9-1-1 if you see a teen or adult [...] Be sure to sign up for the [facility] patient portal, which gives you 09/06 access to your medical information ??? including these discharge instructions ??? using your computer, smartphone, or tablet. Just go to [employer] to get started. Questions? Call . Test [...] range between ( 1.0 and 7.0 ) Tama #: 0.51 K/uL -- Normal range between ( 0.24 and 0.82 ) Eos #: 0.11 K/uL -- Normal range between ( 0.04 and 0.54 ) Tama %: 8.6 % -- Normal range between [...] between ( 9.6 and 11.5 ) Patient Name:CHON LIDIA ALCOCER I have received and understand this information and was given the opportunity to ask questions. Patient/Timber Hewer Name: Patient/Timber Hewer Signature: Relationship to Patient: Clinician/Hospital Timber Hewer Signature: Date: documented in this encounter Plan of Treatment Not on file documented as of this encounter Visit Diagnoses Not on filedocumented in this encounter
--- OUTSIDE RECORDS SUMMARY | 2025-08-08 13:51 | XMS_ITS | Encounter Summary ---
Author Organization [employer] ([place], [place], [place], [place]) Address [address] [place] [address] Care Team Providers Care Plastics Seasoner Operator Name Role Phone Unavailable Primary Care Provider Unavailabl e Encounter Details Date Type Department Care Team (Late st Contact Info) Description 04/09/2019 Transcribed Document [facility] [place] [address] [place] [address] ProviderBladimir MD [address] [place], [place] [id number] Social History Tobacco Use Types Packs/Day Years Used Date Smoking Tobacco: Never Assessed Comments Unknown Sex and Gender Information Value Date Recorded Sex Assigned at Female 05/14/2022 12:29 PM CDT Legal Sex Female 12:29 PM CDT Gender Identity Female 05/14/2022 12:29 PM CDT Sexual Orientation Not on file documented as of this encounter Miscellaneous Notes * Cerner Conversion Note - Historical ProviderMD - 04/09/2019 12:29 PM CDT Stroke/Warfarin Instructions Entered On: 04/09/2019 12:29 EDT Performed On: 04/09/2019 12:29 EDT by SHERRY MADSEN RN Stroke/Warfarin Instructions Stroke/TIA Discharge Ins : N/A Warfarin Discharge Ins : N/A SHERRY MADSEN RN - 04/09/2019 12:29 EDT documented in this encounter Plan of Treatment Not on file documented as of this encounter Visit Diagnoses Not on filedocumented in this encounter
--- OUTSIDE RECORDS SUMMARY | 2025-08-08 13:51 | XMS_ITS | Encounter Summary ---
Author Organization [employer] ([place], [place], [place], [place]) Address [address] [place] [address] Care Team Providers Care Senior Process Engineer Name Role Phone Unavailable Primary Care Provider Unavailabl e Encounter Details Date Type Department Care Team (Late st Contact Info) Description 04/09/2019 Transcribed Document [facility] [place] Medicine [facility] [place] [address] ProviderBladimir MD [address] [place], [place] [id number] Social History Tobacco Use Types Packs/Day Years [...] Conversion Note - Bladimir ProviderMD - 04/09/2019 1:31 PM CDT Pain Assessment Entered On: 04/09/2019 13:33 EDT Performed On: 04/09/2019 12:00 EDT by CHARU ANDERSON RN Intervention Information: fentaNYL Performed by CHARU ANDERSON RN on 04/09/2019 11:30:00 EDT fentaNYL,50mcg IV Push,Left Antecubital Argenis Pain Assessment Pain Assessment : Initial assessment Pain Scale Used : 0-10 Scale CHARU ANDERSON RN - 04/09/2019 13:33 EDT Pain Scale Intensity : 0 CHARU ANDEROSN RN - 04/09/2019 13:33 EDT Image 4 - Images currently included in the form version of this document have not been included in the text rendition version of the form. documented in this encounter Plan of Treatment Not on file documented as of this encounter Visit Diagnoses Not on filedocumented in this encounter
--- OUTSIDE RECORDS SUMMARY | 2025-08-08 13:51 | XMS_ITS | Encounter Summary ---
Author Organization [employer] ([place], [place], [place], [place]) Address [address] [place] [address] Care Team Providers Care Pulp Screen Operator Name Role Phone Unavailable Primary Care Provider Unavailabl e Encounter Details Date Type Department Care Team (Late st Contact Info) Description 04/09/2019 Transcribed Document [facility] [place] Family Medicine [facility] [place] [address] ProviderBladimir MD [facility] [place], [place] [id number] Social History Tobacco Use Types Packs/Day Years [...] Conversion Note - Historical ProviderMD - 04/09/2019 1:38 PM CDT Nursing Discharge Summary Entered On: 04/09/2019 14:28 EDT Performed On: 04/09/2019 13:38 EDT by SHERRY MADSEN RN Discharge Documentation Discharge Date/Time : 04/09/2019 13:38 EDT Patient Disposition, General : Discharge Discharge To : Home with ambulatory/outpatient follow-up Mode Of Departure, General Discharge : Wheelchair with adult Accompanied By, Discharge : Mother IV Discontinued : Yes Personal Belongings With Patient : Yes Discharge Instructions Reviewed With, Opportunity For Questions Given : Patient, Mother Patient Education Completed : Yes Teaching Method : Explanation Teaching Evaluation : Verbalizes understanding SHERRY MADSEN RN - 04/09/2019 14:28 EDT Electronically signed by Hanny [facility] Conversion Bottling Machine Operator Cerner at 03/05/2023 9:27 PM CDT documented in this encounter Plan of Treatment Not on file documented as of this encounter Visit Diagnoses Not on filedocumented in this encounter
--- OUTSIDE RECORDS SUMMARY | 2025-08-08 13:51 | XMS_ITS | Encounter Summary ---
Author Organization [employer] ([place], [place], [place], [place]) Address [address] [place] [address] Care Team Providers Care Attic Blower Name Role Phone Unavailable Primary Care Provider Unavailabl e Encounter Details Date Type Department Care Team (Late st Contact Info) Description 04/09/2019 Transcribed Document [facility] [place] [facility] [place] [address] ProviderBladimir MD [address] [place], [place] [address] Social History Tobacco Use Types Packs/Day Years Used Date Smoking Tobacco: Never Assessed Comments Unknown Sex and Gender Information Value Date Recorded Sex Assigned at Female 05/14/2022 12:29 PM CDT Legal Sex Female 12:29 PM CDT Gender Identity Female 05/14/2022 12:29 PM CDT Sexual Orientation Not on file documented as of this encounter Miscellaneous Notes * Cerner Conversion Note - Bladimir Mak MD - 04/09/2019 1:02 PM CDT Patient Education Materials Follows: Moderate Conscious Sedation, Adult, Care After These [...] you are awake and alert. ??? Take mtdr-qnh-icfgzla and prescription medicines only as told by [...] 08/24/2014 Document Revised: 04/07/2017 Document Reviewed: 02/22/2017 [employer] Interactive Patient Education ? 2019 [employer] Liver Biopsy, Care After These instructions give you information on caring for yourself after your procedure. Your doctor may also give you more specific instructions. Call your doctor if you have any problems or questions after your procedure. Follow these instructions at home: ??? Rest at home for 1?2 days or as told by your doctor. [...] 08/12/2009 Document Revised: 04/10/2017 Document Reviewed: 12/30/2014 [employer] Interactive Patient Education ? 2019 [employer] Liver Biopsy The liver is a large [...] including vitamins, herbs, eye drops, creams, and ztbw-zgu-rcoeicj medicines. ??? Any problems you or family [...] to lie on your right side for 1?2 hours. This will prevent bleeding from the [...] 01/23/2005 Document Revised: 04/07/2017 Document Reviewed: 12/30/2014 Else[employer] Interactive Patient Education ? 2019 [employer] documented in this encounter Plan of Treatment Not on file documented as of this encounter Visit Diagnoses Not on filedocumented in this encounter
--- OUTSIDE RECORDS SUMMARY | 2025-08-08 13:51 | XMS_ITS | Encounter Summary ---
Author Organization [employer] ([place], [place], [place], [place]) Address [address] [place] [address] Care Team Providers Care Baked Goods Stock Clerk Name Role Phone Unavailable Primary Care Provider Unavailabl e Encounter Details Date Type Department Care Team (Late st Contact Info) Description 04/09/2019 Transcribed Document [facility] Family Medicine [facility] [place] [address] ProviderBladimir MD [address] [place] [id number] Social History Tobacco Use Types Packs/Day Years [...] Conversion Note - Historical ProviderMD - 04/09/2019 11:36 AM CDT Patient: LIDIA GIVENS Age: 48 years Sex: Female : 1970 Associated Diagnoses: None Author: EBONI LUA PA-UNK Pre-OP/Procedure Diagnosis: Abnormal liver function / labs. Liver disease Post-OP/Procedure Diagnosis: same Procedure Performed: CT guided core biopsy Procedural MD: Dann Villeda MD Mailroom Messenger: CRISTO Lua Sedation: IV versed and fentanyl Findings: Technically successful biopsy Complications: No significant bleeding EBL: Minimal Specimen(s) Removed: Pathology is pending. Full report to follow. documented in this encounter Plan of Treatment Not on file documented as of this encounter Visit Diagnoses Not on filedocumented in this encounter
[2025-08-08 14:32] LABS: Albumin Level 4.2 g/dl (3.5-5.0); Chloride 103 mmol/L (98-107); Sodium 141 mmol/L (136-145)
[2025-08-08 14:33] LABS: Potassium 5.7 mmoL/L (3.5-5.1)
[2025-08-08 14:35] LABS: Alanine Aminotransferase 20 U/L (12-78); Albumin/Globulin Ratio 1.6 (1.1-1.8); Anion Gap 11.7 mEq/L (5-15); Aspartate Amino Transferase 32 U/L (14-36); Blood Urea Nitrogen 12 mg/dl (7-17); Carbon Dioxide 32 mmol/L (22.0-30.0); Creatinine,Serum 0.70 mg/dl (0.52-1.04); Estimated Glomerular Filt Rate 87 ml/min (>60); GFR (African American) 105 ML/MIN (>60); Globulin 2.6 g/dL (1.3-3.2); Total Protein,Serum 6.8 g/dl (6.3-8.2)
[2025-08-08 14:36] LABS: Alkaline Phosphatase 90 U/L (38-126); Bilirubin,Total 0.3 mg/dl (0.2-1.3); Calcium 9.5 mg/dl (8.4-10.2); Cholesterol 195 mg/dl (140-200); Glucose 87 mg/dl (74-100); HDL Cholesterol 101 mg/dl (40-60); Triglycerides 108 mg/dl (30-150)
[2025-08-08 14:41] LABS: 25-OH Vitamin D, Total 53.6 ng/mL (30-100)
[2025-08-08 14:49] LABS: Free T4 (Free Thyroxine) 0.85 ng/dl (0.78-2.19)
[2025-08-08 15:06] LABS: Thyroid Stimulating Hormone 1.20 uIU/mL (0.465-4.68)
[2025-08-08 15:21] LABS: Hepatitis C Ab Qual. W/ RFX NEGATIVE (Negative)
[2025-08-08 16:00] LABS: Color,Urine YELLOW (Yellow); Glucose,Urine (UA) Negative (Negative); Ketones,Urine TRACE (Negative); Leukocyte Esterase,Urine Negative (Negative); PH,Urine 5.5 (5.0-8.5); Protein,Urine Negative (Negative); Specific Gravity, Urine 1.025 (1.005-1.030); Urobilinogen,Urine 0.2 EU/dl (0.2)
[2025-08-08 16:07] LABS: Bilirubin,Urine 1+ (Negative)
[2025-08-08 16:08] LABS: Bacteria,Urine 4+ /lpf; Calcium Oxalate Crystals,Urine 1+ /lpf; Squamous Epithelial Cell,Urine Occasional #/hpf (0-5)
[2025-08-08 18:25] LABS: Vitamin B12 719 pg/mL (239-931)
== END 2025-08-08 23:59 | disposition home or self-care (01) ==
LOC: LAB.DROPOF 13:49
PROVIDERS: PCP Nurse Practitioner Family; Visit Provider Nurse Practitioner Family
DX: Z12.31 Encounter for screening mammogram for malignant neoplasm of breast (principal); J30.2 Other seasonal allergic rhinitis; R53.83 Other fatigue; J40 Bronchitis, not specified as acute or chronic; M06.9 Rheumatoid arthritis, unspecified; D72.819 Decreased white blood cell count, unspecified; K59.00 Constipation, unspecified; R91.8 Other nonspecific abnormal finding of lung field; Z11.59 Encounter for screening for other viral diseases; Z11.4 Encounter for screening for human immunodeficiency virus [HIV]; Z13.220 Encounter for screening for lipoid disorders; Z13.21 Encounter for screening for nutritional disorder; I10 Essential (primary) hypertension; G47.33 Obstructive sleep apnea (adult) (pediatric); R41.3 Other amnesia
CPT/HCPCS: 80053; 80061; 81001; 82306; 82607; 84439; 84443; 85025; 86803; 87086; 87389

== ENCOUNTER 2025-08-31 09:58 | Outpatient (CLI) | payer OTHER, SELFPAY ==
--- OUTSIDE RECORDS SUMMARY | 2025-04-23 17:30 | XMS_ITS ---
Author Organization [facility] Address [address] [place] [address] Care Team Providers Care Mechanical Designer Name Role Phone Migration, Provider Unavailable Unavailable REASON FOR VISIT [facility] To [facility] Conversion Encounter Medications Medication SIG (Take, Route, Frequency, Duration) Notes Start Date End Date Status Tamiflu 75 MG Capsule 1 cap(s) orally 2 times a day; Duration: 5 day(s) 10/20/2019 Active Zithromax Z-Darius 250 MG Tablet 2 tablets on the first day, then 1 tablet daily for 4 days orally once a day; Duration: 5 days 01/12/2021 Active Zithromax Z-Darius 250 MG Tablet 2 tablets on the first day, then 1 tablet daily for 4 days orally once a day; Duration: 5 days 10/16/2021 Active Cipro 500 MG Tablet 1 tab(s) orally every 12 hours; Duration: 10 days 02/08/2019 Active Tobrex 0.3% SOLUTION 1 GTT IN EACH AFFECTED EYE 4 TIMES A DAY; Duration: 7 DAYS *Please review and pick correct strength-formulation from [facility] options. If intended option is not shown, discontinue and re-order from Quick Search* 05/29/2020 Active Latisse 0.03 % Solution 1 maurilio applied topically once a day (at bedtime); Duration: 30 day(s) 05/11/2018 Active Encounters Encounter Location Date Provider Diagnosis [facility] [address] [place] [address] 04/23/2025 Provider Migration Plan Of Treatment Medication Medication Name Sig Start Date Stop Date Notes Tamiflu 75 MG Capsule 1 cap(s) orally 2 times a day; Duration: 5 day(s) 10/20/2019 Zithromax Z-Darius 250 MG Tablet 2 tablets on the first day, then 1 tablet daily for 4 days orally once a day; Duration: 5 days 01/12/2021 Zithromax Z-Darius 250 MG Tablet 2 tablets on the first day, then 1 tablet daily for 4 days orally once a day; Duration: 5 days 10/16/2021 Cipro 500 MG Tablet 1 tab(s) orally every 12 hours; Duration: 10 days 02/08/2019 Tobrex 0.3% SOLUTION 1 GTT IN EACH AFFECTED EYE 4 TIMES A DAY; Duration: 7 DAYS 05/29/2020 *Please [facility] and [facility]. If intended option is not shown, discontinue and re-order from Quick Search* Latisse 0.03 % Solution 1 maurilio applied topically once a day (at bedtime); Duration: 30 day(s) 05/11/2018 Progress Notes * Gilbert GIVENSValarieOB:1970 ([age] yo F)Acc No.[id number]:04/23/2025 Patient: Lidia Mg Provider: :1970 A ge:54 Y S ex:Female Date:04/23/2025 Address:[facility] [id number] Subjective: * Chief Complaints: * M ultum To [facility] Conversion Encounter Plan: * Treatment: * Electronic signature of Prov ider Migration on 08/31/2025 at 10:10 AM EDT Sign off status: Pending * Provider: Date: 0 04/23/2025 Generated for David malik/Jeanne/Elginitting on: 1 10:10 AM EDT
--- NOTE | 2025-08-31 10:00 | MM_ITS ---
PROCEDURE INFORMATION: Exam: MG Bilateral Screening 3D Mammography Exam date and time: 08/31/2025 10:06 AM Age: 54 years old Clinical indication: Screening exam TECHNIQUE: Imaging protocol: Bilateral Screening tomosynthesis and 2D mammography including computer-aided detection (CAD) when performed. COMPARISON: 1. MG MM DIG SCREENING MAMM BI W/CAD 08/06/2024 8:19 AM 2. MG MM DIG SCREENING MAMM BI W/CAD 06/05/2023 7:53 AM FINDINGS: MAMMOGRAPHY: Breast composition: There are scattered areas of fibroglandular density. Mass: No suspicious masses. Architectural distortion: None. Calcifications: No suspicious calcifications. Asymmetric density: None. Skin thickening: None. Axillary adenopathy: None. Other findings: Portion of the medial left breast is obscured by a cardiac loop recorder. IMPRESSION: No mammographic evidence of malignancy. Annual screening is recommended unless otherwise clinically indicated. ASSESSMENT: BI-RADS Category 1: Negative.
--- OUTSIDE RECORDS SUMMARY | 2025-08-31 10:10 | XMS_ITS | Encounter Summary ---
Author Organization [employer] ([place], [place], [place], [place]) Address [address] [place] [address] Care Team Providers Care Morning Babysitter Name Role Phone Unavailable Primary Care Provider Unavailabl e Encounter Details Date Type Department Care Team (Late st Contact Info) Description 04/09/2019 Transcribed Document [facility] [place] [facility] [place] [address] ProviderBladimir MD [address] [place] [address] Social History Tobacco Use Types Packs/Day [...] Bladimir ProviderMD - 04/09/2019 1:03 PM CDT [place] [id number] LIDIA GIVENS :1970 Visit Time:04/09/2019 Your Visit [...] you are awake and alert. ??? Take avlw-xgb-munfpxb and prescription medicines only as told by [...] 08/24/2014 Document Revised: 04/07/2017 Document Reviewed: 02/22/2017 [employer] Interactive Patient Education ?? 2019 Remote. Liver Biopsy, Care After These instructions give [...] 08/12/2009 Document Revised: 04/10/2017 Document Reviewed: 12/30/2014 [employer] Interactive Patient Education ?? 2019 Remote. Liver Biopsy The liver is a large [...] including vitamins, herbs, eye drops, creams, and odru-hpl-sgdrbly medicines. ??? Any problems you or family [...] 12/30/2014 Elsevier Interactive Patient Education ?? 2019 [employer] Inc[employer] Emergency Awareness and Preventative Care STROKE [...] Assistance with quitting is available by contacting 3-516-IDME-NOW. This is a free resource providing counseling, support, and referral. Or you may contact your personal physician. [place] Suicide Prevention Lifeline: The National Suicide Prevention [...] Be sure to sign up for the [facility] patient portal, which gives you 09/06 access to your medical information ??? including these discharge instructions ??? using your computer, smartphone, or tablet. Just go to [employer] to get started. Questions? Call . Test [...] range between ( 1.0 and 7.0 ) Benson #: 0.51 K/uL -- Normal range between ( 0.24 and 0.82 ) Eos #: 0.11 K/uL -- Normal range between ( 0.04 and 0.54 ) Benson %: 8.6 % -- Normal range between [...] was given the opportunity to ask questions. Patient/Wheel And Caster Repairer Name: Patient/Wheel And Caster Repairer Signature: Relationship to Patient: Clinician/Hospital Wheel And Caster Repairer Signature: Date: documented in this encounter Plan of Treatment Not on file documented as of this encounter Visit Diagnoses Not on filedocumented in this encounter
--- OUTSIDE RECORDS SUMMARY | 2025-08-31 10:10 | XMS_ITS | Encounter Summary ---
Author Organization [employer] ([place], [place], [place], [place]) Address [address] [place] [address] Care Team Providers Care Reservations Specialist Name Role Phone Unavailable Primary Care Provider Unavailabl e Encounter Details Date Type Department Care Team (Late st Contact Info) Description 04/09/2019 Transcribed Document [facility] [place] [facility] [place] [address] ProviderBladimir MD [facility] [place], [place] [address] Social History Tobacco Use Types Packs/Day Years [...] 04/09/2019 14:28 EDT Electronically signed by Hanny [facility] Conversion Luster Repairer Cerner at 03/05/2023 9:27 PM CDT documented in this encounter Plan of Treatment Not on file documented as of this encounter Visit Diagnoses Not on filedocumented in this encounter
--- OUTSIDE RECORDS SUMMARY | 2025-08-31 10:10 | XMS_ITS | Referral Summary ---
Author Organization [employer] ([place], [place], [place], [place]) Address [address] [place] [address] Care Team Providers Care Embedded Software Design Engineer Name Role Phone Unavailable Primary Care [...]
--- OUTSIDE RECORDS SUMMARY | 2025-08-31 10:10 | XMS_ITS | Clinical Summary ---
Author Organization [facility] Address [address] [place] [address] Care Team Providers Care Tin Whiz Machine Operator Name Role Phone Amador Tonwsend MD Primary Care Provider [phone] Family History Medical History Relation Name Comments [...] of Treatment Not on file Care Teams Tin Whiz Machine Operator Relationship Specialty Start Date End Date Amador Townsend MD [address] [place] [phone] PCP - General 03/30/21
--- OUTSIDE RECORDS SUMMARY | 2025-08-31 10:10 | XMS_ITS | Encounter Summary ---
Author Organization [employer] ([place], [place], [place], [place]) Address [address] [place] [address] Care Team Providers Care Scrap Sorter Name Role Phone Unavailable Primary Care Provider Unavailabl e Encounter Details Date Type Department Care Team (Late st Contact Info) Description 04/09/2019 Transcribed Document [facility] [place] [facility] [place] [address] ProviderBladimir MD [address] [place] [id number] Social History Tobacco Use Types Packs/Day Years [...] core biopsy Procedural MD: Dann Villeda MD Salesperson Pets And Pet Supplies: CRISTO Lua Sedation: IV versed and fentanyl Findings: Technically successful biopsy Complications: No significant bleeding EBL: Minimal Specimen(s) Removed: Pathology is pending. Full report to follow. documented in this encounter Plan of Treatment Not on file documented as of this encounter Visit Diagnoses Not on filedocumented in this encounter
--- OUTSIDE RECORDS SUMMARY | 2025-08-31 10:10 | XMS_ITS | Encounter Summary ---
Author Organization [employer] ([place], [place], [place], [place]) Address [address] [place] [address] Care Team Providers Care College Hire Name Role Phone Unavailable Primary Care Provider Unavailabl e Encounter Details Date Type Department Care Team (Late st Contact Info) Description 04/09/2019 Transcribed Document [facility] [place] [facility] [place] [address] ProviderBladimir MD [address] [place], [place] [address] Social History Tobacco Use Types Packs/Day Years [...] you are awake and alert. ??? Take lktz-qks-wjquajf and prescription medicines only as told by [...] 08/24/2014 Document Revised: 04/07/2017 Document Reviewed: 02/22/2017 InstallFree Interactive Patient Education ? 2019 [employer]. Liver Biopsy, Care After These instructions [...] 08/12/2009 Document Revised: 04/10/2017 Document Reviewed: 12/30/2014 [employer] Interactive Patient Education ? 2019 [employer]. Liver Biopsy The liver is a [...] including vitamins, herbs, eye drops, creams, and wjrp-ztl-lvoqeoc medicines. ??? Any problems you or family [...] 01/23/2005 Document Revised: 04/07/2017 Document Reviewed: 12/30/2014 [employer] Interactive Patient Education ? 2019 [employer] documented in this encounter Plan of Treatment Not on file documented as of this encounter Visit Diagnoses Not on filedocumented in this encounter
--- OUTSIDE RECORDS SUMMARY | 2025-08-31 10:10 | XMS_ITS | Clinical Summary ---
Author Organization [facility] Address [address] [place] [address] Care Team Providers Care Diploma Maker Name Role Phone Rosalva Zaidi APRN Primary Care Provider [phone] Allergies Active Allergy Reactions Criticality Noted Date [...] She has seen hematology for leukopenia. The sewing machine operator felt like this issue was perhaps [...] 2. In the past she had seen [facility] Rheumatology. They had prescribed her things like [...] has been seeing hematology for leukopenia. The sewing machine operator felt like this issue was perhaps [...] 2. In the past she had seen [facility] Rheumatology. They had prescribed her things like [...] has been seeing hematology for leukopenia. The sewing machine operator felt like this issue was perhaps [...] Cymbalta, methocarbamol, She previously saw Dr. Felton (Digester Operator Helper [facility]), MTX, Plaquenil, Humira, open finger compression gloves, gabapentin, She has seen a neurologist, she has seen a type rolling machine operator, Moise, She has seen Dr. Elise (pain management), she had trigger point injections, She has epidural injections, She had a spinal stimulator placed. Tylenol as needed is okay to take as directed. She has taken NSAIDs like Celebrex as needed. She has seen paint pourer. She has had a spinal stimulator placed. [...] * 1st doses given April 2019 at [facility] * 2nd doses given October [...] Cymbalta, methocarbamol, She previously saw Dr. Felton (Digester Operator Helper [facility]), MTX, Plaquenil, Humira, open finger compression gloves, gabapentin, She has seen a neurologist, she has seen a type rolling machine operator, Moise, She has seen Dr. Elise (pain [...] Cymbalta, methocarbamol, She previously saw Dr. Felton (Digester Operator Helper [facility]), MTX, Plaquenil, Humira, open finger compression gloves, gabapentin, She has seen a neurologist, she has seen a type rolling machine operator, Moise, She has seen Dr. Elise (pain [...] * 1st doses given April 2019 at [facility] *She is now getting these [...] 3. In the past she had seen [facility] Rheumatology. They had prescribed her things like [...] In the past she has seen [facility] rheumatology. They had prescribed her things [...] * In the past she had seen [facility] Rheumatology. They had prescribed her things like [...] * In the past she had seen [facility] Rheumatology. They had prescribed her things like [...] * In the past she had seen [facility] Rheumatology. They had prescribed her things like [...] 4 to 6 months. We will send [employer] Dosepak today for flare Immunizations Immunization Administration Dates Next Due COVID-19 [...] Description 11/08/2025 8:30 AM EST Office Visit [facility] RHE[facility] [address] [address] Nnamdi Ya APRN [address] [address] Health Maintenance Due Date Last Done Comments [...] (2 - Td or Tdap) 08/23/2032 022 [facility] ZAL[facility] Care Teams Diploma Maker Relationship Specialty Start Date End Date Rosalva Zaidi APRN [address] [place] [address] [place] [address] PCP - General Nurse Practitioner 05/13/25
--- OUTSIDE RECORDS SUMMARY | 2025-08-31 10:10 | XMS_ITS | Clinical Summary ---
Author Organization [employer] ([place], [place], [place], [place]) Address [address] [place] [address] Care Team Providers Care Insulation Worker Apprentice Name Role Phone Unavailable Primary Care Provider [...]
--- OUTSIDE RECORDS SUMMARY | 2025-08-31 10:10 | XMS_ITS | Encounter Summary ---
Author Organization [employer] ([place], [place], [place], [place]) Address [address] [place] [address] Care Team Providers Care Assistant Activities Director Name Role Phone Unavailable Primary Care Provider Unavailabl e Encounter Details Date Type Department Care Team (Late st Contact Info) Description 04/09/2019 Transcribed Document [facility] [place] [facility] [place] [address] ProviderBladimir MD [address], [place] [address] Social History Tobacco Use Types Packs/Day Years [...] Conversion Note - Historical ProviderMD - 04/09/2019 9:22 AM CDT PAT / Pre Procedure Adult Entered On: 04/09/2019 9:29 EDT Performed On: 04/09/2019 9:22 EDT by ROYCE MARSH RN General Info Arrived From : Home Mode of Arrival on Unit : Ambulatory Patient Arrival Date/Time : 04/09/2019 9:16 EDT Legal Guardian : Mother Legal Guardian : No Legal Record of Guardianship Obtained : No Support Person/Patient Physical Therapy Assistant : Yes Support Person/Pt Rep Name : Froy Rincon spouse/Ifoema cunningham/ mother Support Person/Pt Rep Contact Information : [phone]// [phone] Want Family/Rep/Phys Notified of Admit : No Emergency Contact #1 : Ifeoma Cunningham Emergency Contact #1 Emergency Contact #1 Relationship : mother Emergency Contact #2 : // Emergency Contact #2 Phone Number : // Emergency Contact #2 Relationship : // Chief Complaint : liver mass Information Obtained From : Patient Primary Language : Cymro Communication Barrier : None Objects to Sharing Info w Family : No Currently Lactating : No Status : Hysterectomy ROYCE MARSH RN - 04/09/2019 9:22 EDT Height and Weight, Clinical Dosing Height Source : Chart Height Entry Format : [place] Height, Feet : 5 ft(Converted to: 152 cm, 60 Inch) Height, Inches : 2 Inch(Converted to: 0 ft 2 Inch, 5.08 cm) Clinical Height : 157.48 cm Weight Source : Standing scale Weight Entry Format : [place] Clinical Dosing Weight : 56.82 kg Weight, Pounds : 125 lb Body Surface Area (BSA) : 1.57 m2 Body Mass Index : 22.9 kg/m2 [place] Body Weight : 50 kg ROYCE MARSH [...] Days : No Contact With Traveler to [facility] : No Exposure to Contagious Illness [...] Scale Risk Level : 25-45 Medium Risk [place] Fall Interventions : Adequate lighting, Assistive devices [...]
--- OUTSIDE RECORDS SUMMARY | 2025-08-31 10:10 | XMS_ITS | Encounter Summary ---
Author Organization [employer] ([place], [place], [place], [place]) Address [address] [place] [address] Care Team Providers Care Bit Shaver Name Role Phone Unavailable Primary Care Provider Unavailabl e Encounter Details Date Type Department Care Team (Late st Contact Info) Description 04/09/2019 Transcribed Document [facility] [place] [facility] [place] [address] ProviderBladimir MD [address] [place] [id number] Social History Tobacco Use Types Packs/Day [...] Bladimir ProviderMD - 04/09/2019 12:29 PM CDT [place] [id number] LIDIA GIVENS :1970 Visit Time:04/09/2019 Your Visit [...] by your health care provider. ??? Take qols-efc-ossnrpy and prescription medicines only as told by [...] 11/29/2016 Document Revised: 04/10/2017 Document Reviewed: 08/15/2016 [employer] Interactive Patient Education ?? 2019 [employer] Myelogram A myelogram is an imaging [...] including vitamins, herbs, eye drops, creams, and eojb-yem-zfbpcdw medicines. ??? Previous problems you or members [...] Assistance with quitting is available by contacting 9-890-KHKBNOW. This is a free resource providing counseling, support, and referral. Or you may contact your personal physician. [place] Suicide [facility]: The National Suicide Prevention Lifeline is a [...] Be sure to sign up for the [facility] patient portal, which gives you 09/06 access to your medical information ??? including these discharge instructions ??? using your computer, smartphone, or tablet. Just go to [employer] to get started. Questions? Call . Test [...] range between ( 1.0 and 7.0 ) [place] #: 0.51 K/uL -- Normal range between ( 0.24 and 0.82 ) [place] #: 0.11 K/uL -- Normal range between ( 0.04 and 0.54 ) [place] %: 8.6 % -- Normal range between [...] was given the opportunity to ask questions. Patient/Social Work Coordinator Name: Patient/Social Work Coordinator Signature: Relationship to Patient: Clinician/Hospital Social Work Coordinator Signature: Date: documented in this encounter Plan of Treatment Not on file documented as of this encounter Visit Diagnoses Not on filedocumented in this encounter
--- OUTSIDE RECORDS SUMMARY | 2025-08-31 10:10 | XMS_ITS | Patient Health Record ---
Author Organization [facility] Address [address] [place] [address] Care Team Providers Care Corporate Travel Agent Name Role Phone Migration, Provider Unavailable Unavailable Reason For Referral No Information Medications Medication SIG (Take, Route, Frequency, Duration) Notes Start Date End Date Status Tamiflu 75 MG Capsule 1 cap(s) orally 2 times a day; Duration: 5 day(s) 10/20/2019 Active Latisse 0.03 % Solution 1 maurilio applied topically once a day (at bedtime); Duration: 30 day(s) 05/11/2018 Active Zithromax Z-Darius 250 MG Tablet 2 [...] *Please review and pick correct strength-formulation from Medispan options. If intended option is not shown, discontinue and re-order from Quick Search* 05/29/2020 Active Encounters Encounter Location Date Provider Diagnosis [facility] [address] [place] [address] 04/23/2025 Provider Migration Plan Of Treatment No Information
--- OUTSIDE RECORDS SUMMARY | 2025-08-31 10:10 | XMS_ITS | Encounter Summary ---
Author Organization [employer] ([place], [place], [place], [place]) Address [address] [place] [address] Care Team Providers Care Filler Shredder Helper Name Role Phone Unavailable Primary Care Provider Unavailabl e Encounter Details Date Type Department Care Team (Late st Contact Info) Description 04/09/2019 Transcribed Document [facility] [place] [facility] [place] [address] ProviderBladimir MD [address] [place], [place] [id number] Social History Tobacco Use Types Packs/Day Years [...] 04/09/2019 11:30:00 EDT fentaNYL,50mcg IV Push,Left Antecubital [place] Pain Assessment Pain Assessment : Initial assessment Pain Scale Used : 0-10 Scale CHARU ANDERSON RN - 04/09/2019 13:33 EDT Pain Scale Intensity : 0 CHARU ANDERSON RN - 04/09/2019 13:33 EDT Image 4 - Images currently included in the form version of this document have not been included in the text rendition version of the form. documented in this encounter Plan of Treatment Not on file documented as of this encounter Visit Diagnoses Not on filedocumented in this encounter
--- OUTSIDE RECORDS SUMMARY | 2025-08-31 10:10 | XMS_ITS | Encounter Summary ---
Author Organization [employer] ([place], [place], [place], [place]) Address [address] [place] [address] Care Team Providers Care Artist Consultant Name Role Phone Unavailable Primary Care Provider Unavailabl e Encounter Details Date Type Department Care Team (Late st Contact Info) Description 04/09/2019 Transcribed Document [facility] [place] [address] [place] [address] ProviderBladimir MD [address] [place], [place] [address] Social History Tobacco Use Types Packs/Day Years [...]
== END 2025-08-31 23:59 | disposition home or self-care (01) ==
LOC: RAD 09:58
PROVIDERS: PCP Nurse Practitioner Family; Visit Provider Nurse Practitioner Family
DX: Z12.31 Encounter for screening mammogram for malignant neoplasm of breast (principal); R92.323 Mammographic fibroglandular density, bilateral breasts; Z95.818 Presence of other cardiac implants and grafts
CPT/HCPCS: 77063; 77067

== ENCOUNTER 2025-09-29 10:01 | Outpatient (CLI) | payer OTHER, SELFPAY ==
--- OUTSIDE RECORDS SUMMARY | 2025-09-29 10:13 | XMS_ITS | Clinical Summary ---
Author Organization [facility] Address [address] [place] [address] Care Team Providers Care Feed Research Aide Name Role Phone Rosalva Zaidi APRN Primary Care Provider [phone] Allergies Active Allergy Reactions Criticality Noted Date [...] She has seen hematology for leukopenia. The home health travel pt felt like this issue was perhaps autoimmune [...] 2. In the past she had seen [facility] Rheumatology. They had prescribed her things like [...] has been seeing hematology for leukopenia. The home health travel pt felt like this issue was perhaps autoimmune [...] 2. In the past she had seen [facility] Rheumatology. They had prescribed her things like [...] has been seeing hematology for leukopenia. The home health travel pt felt like this issue was perhaps autoimmune [...] Cymbalta, methocarbamol, She previously saw Dr. Felton ([facility]), MTX, Plaquenil, Humira, open finger compression gloves, gabapentin, She has seen a neurologist, she has seen a radiographer angiogram, Moise, She has seen Dr. Elise (pain management), she had trigger point injections, She has epidural injections, She had a spinal stimulator placed. Tylenol as needed is okay to take as directed. She has taken NSAIDs like Celebrex as needed. She has seen interventional pain physician. She has had a spinal stimulator placed. [...] * 1st doses given April 2019 at [facility] * 2nd doses given October 2019 at [facility] * At [facility] she got doses [...] Cymbalta, methocarbamol, She previously saw Dr. Felton ([facility]), MTX, Plaquenil, Humira, open finger compression gloves, gabapentin, She has seen a neurologist, she has seen a radiographer angiogram, Moise, She has seen Dr. Elise (pain [...] Cymbalta, methocarbamol, She previously saw Dr. Felton ([facility]), MTX, Plaquenil, Humira, open finger compression gloves, gabapentin, She has seen a neurologist, she has seen a radiographer angiogram, Moise, She has seen Dr. Elise (pain [...] * 1st doses given April 2019 at [facility] *She is now getting these at an [...] 3. In the past she had seen [facility] Rheumatology. They had prescribed her things like [...] normal In the past she has seen [facility] rheumatology. They had prescribed her things [...] * In the past she had seen [facility]umat[facility]. They had prescribed her things like [...] * In the past she had seen [facility] Rheumatology. They had prescribed her things like [...] * In the past she had seen [facility] Rheumatology. They had prescribed her things like [...] 4 to 6 months. We will send [place] Dosepak today for flare Immunizations Immunization Administration [...] Description 11/08/2025 8:30 AM EST Office Visit [facility] [address] [address] Nnamdi Ya APRN [address] [address] Health Maintenance Due Date Last [...] - Td or Tdap) 08/23/2032 022 [facility] Care Teams Feed Research Aide Relationship Specialty Start Date End Date Rosalva Zaidi APRN [address] [place] [address] [place] [address] PCP - General Nurse Practitioner 05/13/25
--- OUTSIDE RECORDS SUMMARY | 2025-09-29 10:13 | XMS_ITS | Clinical Summary ---
Author Organization [facility] Address [address] [place] [address] Care Team Providers Care Vegetable Grader Name Role Phone Amador Townsend MD Primary Care Provider [phone] Family History Medical History Relation Name Comments [...] of Treatment Not on file Care Teams Vegetable Grader Relationship Specialty Start Date End Date Amador Townsend MD [address] [place] [id number] PCP - General 03/30/21
[2025-09-29 11:13] LABS: Chloride 104 mmol/L (98-107); Potassium 4.8 mmoL/L (3.5-5.1); Sodium 137 mmol/L (136-145)
[2025-09-29 11:15] LABS: Anion Gap 7.8 mEq/L (5-15); Blood Urea Nitrogen 10 mg/dl (7-17); Calcium 9.9 mg/dl (8.4-10.2); Carbon Dioxide 30 mmol/L (22.0-30.0); Creatinine,Serum 0.80 mg/dl (0.52-1.04); Estimated Glomerular Filt Rate 74 ml/min (>60); GFR (African American) 90 ML/MIN (>60); Glucose 96 mg/dl (74-100)
== END 2025-09-29 23:59 | disposition home or self-care (01) ==
LOC: LAB 10:01
PROVIDERS: PCP Nurse Practitioner Family; Visit Provider Physician Assistant
DX: R42 Dizziness and giddiness (principal)
CPT/HCPCS: 36415; 80048